=== PATIENT | male | born 1935 | race Caucasian/White ===

== ENCOUNTER 2022-07-02 13:35 | Outpatient (CLI) | payer MEDICARE, BC, SELFPAY ==
--- OUTSIDE RECORDS SUMMARY | 2022-07-02 13:38 | XMS_ITS | Encounter Summary ---
:1935 Author Organization [place] Address [address] [place] [address] Care Team Providers Name Role Phone Vick Espinoza MD Primary Care Provider Cleopatra Velazquez MD Unavailable Neeru Kathleen MD Unavailable [phone] Reason for Visit Reason Comments Medication Refill Encounter Details Date Type Department Care Team Description 12/02/2019 Refill [facility] Eye Louann Velazquez MD Medication Refill Clinic - [address] [place], [place] [address] [place] [address] 516 [facility] 9 [facility] 9[address] [place], [place] [phone] Social History Tobacco Use Types Packs/Day Years Used Date Current Every Day Smoker Smokeless Tobacco: Never Used Sex Assigned at Date Recorded Not on file documented as of this encounter Miscellaneous Notes Telephone Encounter - Zeinab Douglass RN - 12/02/2019 5:04 PM CST Last Clinic Visit: 10/19/19 with recommended 6 month follow up Last clinic note: PLAN: Continue latanoprost both eyes at bedtime DE SALES ACCOUNT EXECUTIVE documented in this encounter Plan of Treatment Upcoming Encounters Date Type Specialty Care Team Description 07/08/2022 Office Visit Ophthalmology Brennen Kathleen MD [address] [place] [address] 911 [place], [place] [phone] (Wo rk) documented as of this encounter Visit Diagnoses Diagnosis Borderline glaucoma with ocular hyperten caroline, bilateral documented in this encounter Care Teams Last Turner Relationship Specialty Start Date End Date Vick Espinoza MD PCP - General Family Practice 09/15/14 [facility] [address] [place] [address] Cleopatra Velazquez MD MD Ophthalmology 10/10/15 420 [facility] 493 [place], [place] [phone] Neeru Kathleen MD MD Ophthalmology 12/14/17 516 [facility] [address] [place], [place] [phone] documented as of this encounter
--- OUTSIDE RECORDS SUMMARY | 2022-07-02 13:38 | XMS_ITS | Encounter Summary ---
:1935 Author Organization [place] Address [address] [facility] [place] [address] Care Team Providers Name Role Phone Vick Espinoza MD Primary Care Provider Cleopatra Velazquez MD Unavailable Madhu Kathleen MD Unavailable [phone] Reason for Visit Reason Comments Annual Eye Exam Encounter Details Date Type Department Care Team Description 06/12/2020 Office Visit [facility] Eye Madhu Kathleen orderline glaucoma with ocular hypertension, bilateral (Primary Dx); Clinic - Ronald Burns MD Type 2 diabetes mellitus without retinop athy (H) [facility] 516 [place] [facility] [address] [place] [address] 9 [address] Clin 9[address] [address] [place], [place] [phone] (Work) [phone] Social History Tobacco Use Types Packs/Day Years Used Date Former Smoker Smokeless Tobacco: Never Used Sex Assigned at Date Recorded Not on file COVID-19 Exposure Response Date Recorded In the last month, have you been in contact with No / Unsure 06/12/2020 12:03 PM CDT someone who was confirmed or suspected to have Coronavirus / COVID-19? documented as of this encounter Progress Notes Madhu Kathleen MD - 06/12/2020 12:30 PM CDT CC - h/o Retinal detachment both eyes s/p repair INTERVAL HISTORY - [facility] stable, missed appt d/t Covid restrictions HPI - Rakesh Warren is a 85yo male with T2DM and history of Retinal detachment both eyes s/p repair. History of T2DM since late 1980s, on metformin, most recent A1c normal per patient. PAST OCULAR SURGERY PPV/SBP left eye 2009 SBP right eye 2009 RETINAL IMAGING OCT 06-12-20 OD - : trace ERM, PVD OS - : mild central atrophy/intraretinal deposits without SRF/IRF, stable OCT RNFL 20 OD - normal OS - borderline ST ASSESSMENT/PLAN: 1. Retinal detachment both eyes s/p repair 2009 -SBP right eye and Pars plana vitrectomy (PPV)/SBP left eye -retina flat both eyes -observe 2. PVD OD -Stable, observe -s/sx Retinal detachment D/w patient 06/2020 3. 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 Primary open angle glaucoma - Follows with Dr. Velazquez and on Latanoprost at bedtime both eyes - Good response with Latanoprost - at target IOP per Dr. Velazquez (low 20's) - OCT RNFL normal today - recheck 6 months return to clinic: 6 months , OCT RNFL, OVF 24-2 ATTESTATION Attending Physician Attestation: Complete documentation of historical and exam elements from today's encounter can be found in the full encounter summary report (not reduplicated in this progress note). I personally obtained the chief complaint(s) and history of present illness. I confirmed and edited as necessary the review of systems, past medical/surgical history, family history, social history, and examination findings as documented by others; and I examined the patient myself. I personally reviewed the relevant tests, images,and reports as documented above. I formulated and edited as necessary the assessment and plan and discussed the findings and management plan with the patient and family Madhu Kathleen MD, PhD Handle Rounder Operator, Vitreoretinal Surgery Department of Ophthalmology [facility] documented in this encounter Nursing Notes Kendra Hunter COA - 06/12/2020 12:30 PM CDT Chief Complaints and History of Present Illnesses Patient presents with ??? Annual Eye Exam Chief Complaint(s) and History of Present Illness(es) Annual Eye Exam Associated symptoms: Negative for flashes and floaters Pain scale: 0/10 Comments Annual exam and follow up for Retinal detachment both eyes s/p repair . The patient notes that his vision is stable. MESSI Silva, COA 12:19 PM 06/12/2020 documented in this encounter Miscellaneous Notes Addendum Note - Madhu Kathleen MD - 06/12/2020 12:30 PM CDT Addended by: MADHU KATHLEEN on: 06/12/2020 01:15 PM Modules accepted: Orders documented in this encounter Plan of Treatment Upcoming Encounters Date Type Specialty Care Team Description 07/08/2022 Office Visit Ophthalmology Brennen Kathleen MD [address] [place] [phone] (Wo rk) documented as of this encounter Procedures Procedure Name Priority Date/Time Associated Diagnosis Comme nts OCT RETINA Routine 06/12/2020 1:13 PM Type 2 diabetes Result s for this SPECTRALIS OU (BOTH CDT mellitus without proc edure are in EYE) retinopathy (H) the results section. OCT OPTIC NERVE RNFL Routine 06/12/2020 1:13 PM Borderline gla ucoma Results for this SPECTRALIS OU (BOTH CDT with ocular procedur e are in EYES) hypertension, the results bilateral section. documented in this encounter Results OCT Retina Spectralis OU (both eyes) (06/12/2020 1:13 PM CDT) Narrative Madhu Kathleen MD - 06/12/2020 1:13 PM CDT Performed by: NO . Patient cooperation: Reliable . Right Eye Reliability of the test: Good . Findings normal/abnormal: Normal OCT . Interpretation: Normal . Plan: Monitor . Interval: Same . Left Eye Reliability of the test: Good . Findings normal/abnormal: Normal OCT . Interpretation: Normal . Plan: Monitor . Interval: Same . Notes I viewed this imaging studay and the doc umentation here and in the chart note reflect my findings and interpretat ion. Madhu Kathleen MD OPHTHALMOLOGY OCT Optic Nerve RNFL Spectralis OU (both eyes) (06/12/2020 1:13 PM CDT) Narrative Madhu Kathleen MD - 06/12/2020 1:13 PM CDT Performed by: NO . Patient cooperation: Reliable . Right Eye Reliability of the test: Good . Test Findings: Normal . Interpretation: Normal . Plan: Monitor . Interval: Same . Left Eye Reliability of the test: Good . Test Findings: Normal . Interpretation: Normal . Plan: Monitor . Interval: Same . Notes I viewed these images. ??The documentati on here and in the note reflects my findings and interpretation. 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 (H) Type II or unspecified type diabetes kiran litus without mention of complication, not stated as uncontrolled documented in this encounter Care Teams Special Procedure Technologist Relationship Specialty Start Date End Date Vick Espinoza MD PCP - General Family Practice 09/15/14 [facility] [address] [place] [address] Cleopatra Velazquez MD MD Ophthalmology 10/10/15 [address] [place] [address] [facility] [address] [place], [place] [address] Madhu Kathleen MD MD Ophthalmology 12/14/17 516 [facility] [address] [facility] 911 [place], [place] [phone] documented as of this encounter
--- OUTSIDE RECORDS SUMMARY | 2022-07-02 13:38 | XMS_ITS | Encounter Summary ---
:1935 Author Organization [place] Address [address] [place] [address] Care Team Providers Name Role Phone Vick Espinoza MD Primary Care Provider Cleopatra Velazquez MD Unavailable Reason for Visit Reason Comments Follow Up Retinal detachment both eye s s/p repair 2010 Encounter Details Date Type Department Care Team Description 02/03/2017 Office Visit [facility] Eye Neeru Kathleen ype 2 diabetes mellitus without retinopathy (H); Clinic - Ronald Burns MD H/O detached retina repair; Jones Wangensteen 516 [facility] seudophakia; Building [place] [address] Glaucoma, open angle, indeterminate stag e [365.10, 365.74] 516 [place], [place] 9 Fl Clin 9A [address] [place], [place] [phone] (Work) [phone] Social History Tobacco Use Types Packs/Day Years Used Date Current Every Day Smoker Sex Assigned at Date Recorded Not on file documented as of this encounter Progress Notes Neeru Kathleen MD - 02/03/2017 10:15 AM CDT CC - h/o Retinal detachment both eyes s/p Repair INTERVAL HISTORY - Vision stable per patient. No concerns. HPI - Rakesh Warren is a 78 year old year-old patient presenting for follow up of retinal detachmentboth eyes 2009. PAST OCULAR SURGERY Pars plana vitrectomy (PPV)/SBP left eye 2010 SBP right eye 2010 RETINAL IMAGING OCT (02/03/2017) OCT right eye: Normal contour without SRF/IRF, trace ERM OCT left eye: Normal contour, mild central atrophy/intraretinal deposits without SRF/IRF, stable ASSESSMENT/PLAN: 1. Retinal detachment both eyes s/p repair 2010 -SBP right eye and Pars plana vitrectomy (PPV)/SBP left eye -retina flat both eyes -observe 2.Pseudophakia of both eyes -Stable, observe 3. Posterior vitreous detachment of right eye -Stable, observe -s/sx Retinal detachment D/w patient 4. Primary open angle glaucoma - Saw Dr. Velazquez and started Latanoprost at bedtime both eyes - Good response with Latanoprost - at target IOP per Dr. Velazquez (low 20's) 5. Diabetes mellitus II no retinopathy -Blood sugar/blood pressure control return to clinic: 1 year or sooner as needed, OCT both eyes Santos Blevins MD MPH Ophthalmology Resident PGY-3 ATTESTATION Attending Physician Attestation: Complete documentation of historical and exam elements from today's encounter can be found in the full encounter summary report (not redupilcated in this progress note). I personally obtained the chiefcomplaint(s) and hisotry of present illness., I have confirmed and edited as necessary the Past medical history/Past Surgical History, Social history, Family medical history, Review of systems, and exam/neuro findings as obtained by the production line technician or others. I have examined this patient myself. , I personally viewed the relevant tests, image(s), reports, and studies listed above and the documentationreflects my findings and interpretation. and I formulated and edited as necessary the assessment andplan and discussed the findings and management plan with the patient and family. Neeru Kathleen MD, PhD Window Shade Cutter, Vitreoretinal Surgery Department of Ophthalmology [facility] documented in this encounter Nursing Notes Nereyda Caraballo - 02/03/2017 10:15 AM CDT Chief Complaints and History of Present Illnesses Patient presents with ??? Follow Up For Retinal detachment both eyes s/p repair 2009 HPI Affected eye(s): Both Symptoms: Duration: 1 year Frequency: Constant Do you have eye pain now?: No Comments: Pt. States that he is doing well, No change in VA BE. No c/o comfort BE. Nereyda Caraballo COT 10:38 AM February 03, 2017 documented in this encounter Plan of Treatment Upcoming Encounters Date Type Specialty Care Team Description 07/08/2022 Office Visit Ophthalmology Brennen Kathleen MD [address] [address] (Wo rk) documented as of this encounter Procedures Procedure Name Priority Date/Time Associated Diagnosis Comme nts OCT RETINA Routine 02/03/2017 11:17 Type 2 diabetes Results for this SPECTRALIS OU (BOTH AM CDT mellitus without proc edure are in EYE) retinopathy (H) the results H/O detached retina section. repair Pseudophakia Glaucoma, open angle, indeterminate stage [365.10, 365.74] documented in this encounter Results OCT Retina Spectralis OU (both eyes) (02/09/2018 12:24 PM CDT) Neeru Hayden MD - 02/09/2018 12:24 PM CDT Performed by: tfw . Patient cooperation: Reliable . Right Eye Reliability of the test: Good . Findings normal/abnormal: Abnormal OCT . Additional findings: ERM . Interpretation: Retinal disease . Plan: Monitor . Interval: Same . Left Eye Reliability of the test: Good . Findings normal/abnormal: Abnormal OCT . Additional findings: Inner retinal atr ophy . Interpretation: Retinal disease . Plan: Monitor . Interval: Same . Notes I viewed this imaging studay and the doc umentation here and in the chart note reflect my findings and interpretat ion. Neeru Kathleen MD OPHTHALMOLOGY OCT Retina Spectralis OU (both eyes) (02/03/2017 11:17 AM CDT) Neeru Hayden MD - 02/03/2017 11:53 AM CDT Performed by: SAB . Patient cooperation: Reliable . Right Eye Reliability of the test: Good . Findings normal/abnormal: Abnormal OCT . Additional findings: ERM . Interpretation: Retinal disease . Plan: Monitor . Interval: Same . Left Eye Reliability of the test: Good . Findings normal/abnormal: Normal OCT . Additional findings: Inner retinal atr ophy . Interpretation: Normal . Plan: Monitor . Interval: Same . Notes I viewed this imaging studay and the doc umentation here and in the chart note reflect my findings and interpretat ion. 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 (H) Type II or unspecified type diabetes kiran litus without mention of complication, not stated as uncontrolled H/O detached retina repair Personal history of surgery to other org ans Pseudophakia Lens replaced by other means documented in this encounter Care Teams Road Patcher Relationship Specialty Start Date End Date Vick Espinoza MD PCP - General Family Practice 09/15/14 [facility] [address] [place] [address] Cleopatra Velazquez MD MD Ophthalmology 10/10/15 [address] [place] [address] [facility] 493 [place] [address] documented as of this encounter
--- OUTSIDE RECORDS SUMMARY | 2022-07-02 13:38 | XMS_ITS | Encounter Summary ---
:1935 Author Organization [place] Address [address] [place] [place] [address] Care Team Providers Name Role Phone Vick Espinoza MD Primary Care Provider Cleopatra Velazquez MD Unavailable Reason for Visit Reason Comments Glaucoma Follow Up Encounter Details Date Type Department Care Team Description 11/17/2016 Office Visit [facility] Eye Cleopatra Velazquez, O cular hypertension, Clinic - [place] bilateral [H40.053] Robert Wangensteen 420 [facility] 493 516 [place], [place] 9th Fl Clin 9A [address] [place], [place] [phone] (Work) [phone] Social History Tobacco Use Types Packs/Day Years Used Date Current Every Day Smoker Sex Assigned at Date Recorded Not on file documented as of this encounter Progress Notes Cleopatra Velazquez MD - 11/17/2016 1:44 PM CST Glaucoma suspect evaluation. Followed by diabetic retinopathy [facility] for retinal detachment left eye s/p Pars plana vitrectomy/SB left eye and SB right eye 2009. 1. Glaucoma suspect Ocular hypertension Normal OCT in past right eye and bordeline left eye 2. Retinal detachment both eyes s/p repair 2010 -SBP right eye and Pars plana vitrectomy (PPV)/SBP left eye -retina flat both eyes -observe 3. Pseudophakia of both eyes -Stable, observe 4. Posterior vitreous detachment of right eye -Stable, observe 5. Diabetes mellitus II no retinopathy -Blood sugar/blood pressure control [place] [facility] and helped with [facility] also Continue latanoprost both eyes at bedtime - goal lower 20's RV 6 months for 24-2 Attending Physician Attestation: Complete documentation of historical and exam elements from today'sencounter can be found in the full encounter summary report (not reduplicated in this progress note). I personally obtained the chief complaint(s) and history of present illness. I confirmed and editedasnecessary the review of systems, past medical/surgical history, family history, social history, and examination findings as documented by others; and I examined the patient myself. I personally reviewed the relevant tests, images, and reports as documented above. I formulated and edited as necessarythe assessment and plan and discussed the findings and management plan with the patient and family. - Cleopatra Velazquez MD 1:45 PM 11/17/2016 ICAL GEOGRAPHER documented in this encounter Nursing Notes Kendra Hunter COA - 11/17/2016 12:52 PM CST Chief Complaints and History of Present Illnesses Patient presents with ??? Glaucoma Follow Up HPI Symptoms: No decreased vision No floaters No flashes No Dryness Do you have eye pain now?: No Comments: Six month follow up for glaucoma. The patient states his vision is stable since his last visit. He has a current UTI and he is being treated. MESSI Silva 12:52 PM 11/17/2016 ICAL GEOGRAPHER documented in this encounter Plan of Treatment Upcoming Encounters Date Type Specialty Care Team Description 07/08/2022 Office Visit Ophthalmology Brennen Kathleen MD [address] [place] [address] (Wo rk) documented as of this encounter Procedures Procedure Name Priority Date/Time Associated Comments Diagnosis OCT OPTIC NERVE RNFL Routine 11/17/2016 1:43 PM Ocular R esults for this SPECTRALIS OU (BOTH PHYSICAL GEOGRAPHER hypertension, procedu re are in EYES) bilateral [H40.053] the resu lts section. documented in this encounter Results OCT Optic Nerve RNFL Spectralis OU (both eyes) (11/17/2016 1:43 PM PHYSICAL GEOGRAPHER) Narrative Cleopatra Velazquez MD - 11/17/2016 1:44 P M PHYSICAL GEOGRAPHER Right Eye Test Findings: Normal . Interval: Same . Left Eye Test Findings Free Text: Borderline ST . Interval: Worse . 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
--- OUTSIDE RECORDS SUMMARY | 2022-07-02 13:38 | XMS_ITS | Encounter Summary ---
:1935 Author Organization [place] Address [address] [place] [address] Care Team Providers Name Role Phone Vick Espinoza MD Primary Care Provider Cleopatra Velazquez MD Unavailable Neeru Kathleen MD Unavailable [phone] Reason for Visit Reason Comments Glaucoma Suspect Follow Up Encounter Details Date Type Department Care Team Description 10/13/2018 Office Visit [facility] Eye Cleopatra Velazquez B orderline glaucoma Clinic - [place] with ocular Jones Wangensteen 420 [facility] hype rtension, Building [facility] 493 bilateral (Primary 516 [facility] [place], [place] Dx) Fl Clin 9A [address] [place], [place] [phone] (Work) [phone] Social History Tobacco Use Types Packs/Day Years Used Date Current Every Day Smoker Smokeless Tobacco: Never Used Sex Assigned at Date Recorded Not on file documented as of this encounter Progress Notes Cleopatra Velazquez MD - 10/13/2018 12:45 PM CST CC:Glaucoma suspect. HPI: recently had spine surgery, has been taking care of her. And brother on 09/26/18. Otherwise no changes in vision or concerns today. PAST OCULAR HISTORY: Followed by diabetic retinopathy [facility] for retinal detachment left eye s/p Pars plana vitrectomy/SB left eye and SB right eye 2009. Pseudophakia Diabetes mellitus II without retinopathy PVD right eye MAXIMUM INTRAOCULAR PRESSURE: 26/33 MEDICATIONS: Latanoprost at bedtime ou PMH: FAMILY/SOCIAL HISTORY: TESTING TODAY: 10/13/18: Visual field Right eye: high false positives Left eye: reliable, central defects 04/07/18: Normal OCT right eye and ST borderline/rest normal left eye - stable EXAM: Anomalous left nerve IMPRESSION: Glaucoma suspect, ocular hypertension VISUAL FIELD right eye unreliable, left eye with some central decreased sensitivity PLAN: Continue latanoprost both eyes at bedtime Return to clinic in 6 months with OCT retinal nerve fiber layer [employer] [facility] and helped with [facility] also Bridgette Cavazos MD PGY-3 Ophthalmology Attending Physician Attestation: Complete documentation of historical [...] patient and family. - Cleopatra Velazquez MD 2:25 PM 10/13/2018 AGENT documented in this encounter Plan of Treatment Upcoming Encounters Date Type Specialty Care Team Description 07/08/2022 Office Visit Ophthalmology Brennen Kathleen MD [address] [place] [address] (Wo rk) documented as of this encounter Procedures Procedure Name Priority Date/Time Associated Diagnosis Comme nts OVF 24-2 DYNAMIC OU Routine 10/13/2018 2:27 PM Borderline glau coma Results for this BAIL AGENT with ocular procedure are i n hypertension, the results bilateral section. documented in this encounter Results OVF 24-2 Dynamic OU (10/13/2018 2:27 PM BAIL AGENT) Narrative Cleopatra Velazquez MD - 10/13/2018 2:27 P M BAIL AGENT Performed by: mm . Right Eye Reliability of the test: Poor . Findings: Nonspecific defect . Interval: Same . Left Eye Reliability of the test: Good . Findings: Central scotoma, Nonspecific defect . Interval: Same . Cleopatra Velazquez MD OPHTHALMOLOGY documented in this encounter Visit Diagnoses Diagnosis Borderline glaucoma with ocular hyperten caroline, bilateral - Primary documented in this encounter Care Teams Network Designer Relationship Specialty Start Date End Date Vick Espinoza MD PCP - General [facility] Practice 09/15/14 [facility] [address] [place] [address] Cleopatra Velazquez MD MD Ophthalmology 10/10/15 [address] [place] [address] [facility] [address] [place] [address] Neeru Kathleen MD MD Ophthalmology 12/14/17 516 [facility] [address] [place] [address] documented as of this encounter
--- OUTSIDE RECORDS SUMMARY | 2022-07-02 13:38 | XMS_ITS | Encounter Summary ---
:1935 Author Organization [place] Address [address] [place] [address] Care Team Providers Name Role Phone Vick Espinoza MD Primary Care Provider Cleopatra Velazquez MD Unavailable Reason for Visit Reason Comments Glaucoma Suspect Follow Up 6 month follow up both eyes . 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 Followed by diabetic retinopathy Hever for retinal [...] eye -Stable, observe 5. 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 - Cleopatra Velazquez MD 1:13 PM 06/08/2017 documented in this encounter Nursing Notes Shantel Boothe COMT - 06/08/2017 1:00 PM CDT Chief Complaints and History of Present Illnesses Patient presents with ??? Glaucoma Suspect Follow Up 6 month follow up both eyes. HPI Affected eye(s): Both Symptoms: No floaters No flashes No redness No Dryness Do you have eye pain now?: No Comments: Pt states vision is the same as last visit. Pt saw a floater in a few weeks ago, but not seeing it today. DM2 BS: 134 yesterday A1C: Good per pt, taken about 3 months ago. No results found for: A1C Shantel SILVERMAN June 08, 2017 12:33 PM documented in this encounter Plan of Treatment Upcoming Encounters Date Type Specialty Care Team Description 07/08/2022 Office Visit Ophthalmology Brennen Kathleen MD [address] [place] [address] (Wo rk) documented as of this encounter Procedures Procedure Name Priority Date/Time Associated Diagnosis Comme nts OVF 24-2 DYNAMIC OU Routine 06/08/2017 1:12 PM Borderline glau coma Results for this CDT with ocular procedure are i n hypertension the results section. documented in this encounter Results OVF 24-2 Dynamic OU (06/08/2017 1:12 PM CDT) Narrative Cleopatra Velazquez MD - 06/08/2017 1:12 P M CDT Performed by: mm . Right Eye Reliability of the test: Fair . Findings: Nonspecific defect . Interval: Same . Left Eye Reliability of the test: Poor . Findings: Nasal step, Nonspecific defe ct . Interval: Same . Cleopatra Velazquez MD OPHTHALMOLOGY documented in this encounter Visit Diagnoses Diagnosis Borderline glaucoma with ocular hyperten caroline, bilateral documented in this encounter Care Teams Remote Control Assembler Relationship Specialty Start Date End Date Vick Espinoza MD PCP - General Family Practice 09/15/14 [facility] [address] [place] [address] Cleopatra Velazquez MD MD Ophthalmology 10/10/15 [address] [place] [address] [facility] 493 [place] [address] documented as of this encounter
--- OUTSIDE RECORDS SUMMARY | 2022-07-02 13:38 | XMS_ITS | Encounter Summary ---
:1935 Author Organization [place] Address [address] [place] [address] Care Team Providers Name Role Phone Vick Espinoza MD Primary Care Provider Cleopatra Velazquez MD Unavailable Neeru Kathleen MD Unavailable [phone] Encounter Details Date Type Department Care Team Description 04/03/2020 Travel Social History Tobacco Use Types Packs/Day Years Used Date Current Every Day Smoker Smokeless Tobacco: Never Used Sex Assigned at Date Recorded Not on file COVID-19 Exposure Response Date Recorded In the last month, have you been in contact Unable to assess 04/03/2020 2:25 PM CDT with someone who was confirmed or suspected to have Coronavirus / COVID-19? documented as of this encounter Plan of Treatment Upcoming Encounters Date Type Specialty Care Team Description 07/08/2022 Office Visit Ophthalmology Brennen Kathleen MD 516 [facility] 911 [place] [address] (Wo rk) documented as of this encounter Visit Diagnoses Not on filedocumented in this encounter Care Teams Bale Piler Relationship Specialty Start Date End Date Vick Espinoza MD PCP - General Family Practice 09/15/14 [facility] [address] [place] [address] Cleopatra Velazquez MD MD Ophthalmology 10/10/15 420 [facility] 493 [place] [address] Neeru Kathleen MD MD Ophthalmology 12/14/[address] [place] [address] documented as of this encounter
--- OUTSIDE RECORDS SUMMARY | 2022-07-02 13:38 | XMS_ITS | Encounter Summary ---
:1935 Author Organization [facility] Address [address] [place] [address] Care Team Providers Name Role Phone Vick Espinoza MD Primary Care Provider Cleopatra Velazquez MD Unavailable Neeru Kathleen MD Unavailable [phone] Neeru Kathleen MD Unavailable [phone] Reason for Visit Reason Comments Medication Refill LATANOPROST 0.005% EYE DROPS Encounter Details Date Type Department Care Team Description 07/16/2021 Refill [facility] Eye Neeru Kathleen edication Refill Clinic - Ronald Burns MD (LATANOPROST 0.005% EYE [place] [address] 9 Mt Clin 9A [address] [place], [place] [phone] (Wo rk) [address] [phone] Social History Tobacco Use Types Packs/Day Years Used Date Former Smoker Smokeless Tobacco: Never Used Sex Assigned at Date Recorded Not on file COVID-19 Exposure Response Date Recorded In the last month, have you been in contact with No / Unsure 07/02/2021 11:54 AM CDT someone who was confirmed or suspected to have Coronavirus / COVID-19? documented as of this encounter Miscellaneous Notes Telephone Encounter - Kely Leon RN - 07/16/2021 3:10 PM CDT LATANOPROST 0.005% EYE DROPS Last Written Prescription Date: 06/12/2020 Last Fill Quantity: 7.5, # refills: 11 Last Office Visit : 07/02/2021 Future Office visit: 12/31/2021 Neeru Kathleen MD Ophthalmology ASSESSMENT/PLAN: 07/02/2021 # Retinal detachment OU s/p repair 2010 -SBP right eye and Pars plana vitrectomy (PPV)/SBP left eye -retina flat both eyes -observe ? #. PVD OD -Stable, observe -s/sx Retinal detachment D/w patient 06/2021 ? #. Diabetes mellitus II no retinopathy -Blood sugar/blood pressure control -Annual dilated eye exams ? #. Primary open angle glaucoma - Follows with Dr. Velazquez and on Latanoprost at bedtime both eyes - On Latanoprost - target low 20's per Marcus ntoe - IOP OS mild elevation 12/2020 & 06/2021 - OCT RNFL normal (92206) - OVF stable vs better (12/2020) ?? - recheck 6 months ? return to clinic: 6 months, OCT RNFL OU, OVF 24-2 OU, no dilation 7.5 mL, 11 Refills sent to pharm 07/16/2021 Kely Leon RN Central Triage Red Flags/Med Refills documented in this encounter Plan of Treatment Upcoming Encounters Date Type Specialty Care Team Description 07/08/2022 Office Visit Ophthalmology Brennen Kathleen MD 6 [facility] 911 [place] [address] (Wo rk) documented as of this encounter Visit Diagnoses Diagnosis Borderline glaucoma with ocular hyperten caroline, bilateral documented in this encounter Care Teams Gritting Machine Operator Relationship Specialty Start Date End Date Vick Espinoza MD PCP - General Family Practice 09/15/14 [facility] [address] [place] [address] Cleopatra Velazquez MD MD Ophthalmology 10/10/15 420 [facility] 493 [place], [place] [phone] Neeru Kathleen MD Ophthalmology 12/14/17 MD [facility] [address] [place] [address] [phone] Neeru Kathleen Assigned Surgical Provider 10/21/20 MD [facility] [address] [place] [address] [phone] documented as of this encounter
--- OUTSIDE RECORDS SUMMARY | 2022-07-02 13:38 | XMS_ITS | Encounter Summary ---
:1935 Author Organization [place] Address [address] [place] [address] Care Team Providers Name Role Phone Vick Espinoza MD Primary Care Provider Cleopatra Velazquez MD Unavailable Neeru Kathleen MD Unavailable [phone] Neeru Kathleen MD Unavailable [phone] Reason for Visit Reason Comments Follow Up Borderline glaucoma with ocu lar hypertension, bilateral Encounter Details Date Type Department Care Team Description 07/02/2021 Office Visit [facility] Eye Neeru Kathleen orderline glaucoma with ocular hypertension, bilateral (Primary Dx); Clinic - Ronald Burns MD Type 2 diabetes mellitus without retinop athy (H); Robert Garciateen 516 [facility] V itreous syneresis of both eyes ; [facility] 911 Vitreous syneresis of both eyes 516 [place], [place] Clin 9A [address] [place], [place] [phone] (Work) [phone] Social History Tobacco Use Types Packs/Day Years [...] encounter Progress Notes Neeru Kathleen MD - 07/02/2021 12:10 PM CDT CC - h/o Retinal detachment both eyes s/p repair, POAG INTERVAL HISTORY - [place] stable PMH- Rakesh Warren is a 86yo male with T2DM and history of Retinal detachment both eyes s/p repair. History of T2DM since late , on metformin, most recent A1c normal per patient. PAST OCULAR SURGERY PPV/SBP left eye 2009 SBP right eye 2009 RETINAL IMAGING OCT 07-02-21 OD - : trace ERM, PVD OS - : mild central atrophy/intraretinal deposits no fluid, stable HVF 24-2 12-25-20 OD- ?superior arcuate- improved since last year OS- Non specific defects, 14% FP and 12% FN OCT RNFL 12-25-20 OD - normal- stable OS - borderline ST- stable ASSESSMENT/PLAN: # Retinal detachment OU s/p repair 2009 -SBP right eye and Pars plana vitrectomy (PPV)/SBP left eye -retina flat both eyes -observe #. PVD OD -Stable, observe -s/sx Retinal detachment D/w patient 06/2021 #. Diabetes mellitus II no retinopathy -Blood sugar/blood pressure control -Annual dilated eye exams #. Primary open angle glaucoma - Follows with Dr. Velazquez and on Latanoprost at bedtime both eyes - On Latanoprost - target low 20's per Marcus ntoe - IOP OS mild elevation 12/2020 & 06/2021 - OCT RNFL normal (76804) - OVF stable vs better (12/2020) - recheck 6 months return to clinic: 6 months, OCT RNFL OU, OVF 24-2 OU, no dilation ATTESTATION Attending Physician Attestation: Complete documentation of [...] management plan with the patient and family Neeru Kathleen MD, PhD Buffer Inflated Pad, Vitreoretinal Surgery Department of Ophthalmology [facility] documented in this encounter Nursing Notes Gr Yesenia - 07/02/2021 12:10 PM CDT Chief Complaints and History of Present Illnesses Patient presents with ??? Follow Up Borderline glaucoma with ocular hypertension, bilateral Chief Complaint(s) and History of Present Illness(es) Follow Up Laterality: both eyes Course: stable Associated symptoms: headache. Negative for floaters, flashes and eye pain Treatments tried: eye drops Pain scale: 0/10 Comments: Borderline glaucoma with ocular hypertension, bilateral Comments Pt states no change in [place] since last visit Using: Latanoprost at bedtime both eyes Yesenia Gr COT 12:07 PM July 02, 2021 documented in this encounter Plan of Treatment Upcoming Encounters Date Type Specialty Care Team Description 07/08/2022 Office Visit Ophthalmology Brennen Kathleen MD [address] [place] [phone] (Wo rk) documented as of this encounter Procedures Procedure Name Priority Date/Time Associated Diagnosis Comme nts OCT RETINA Routine 07/02/2021 12:46 Type 2 diabetes Results for this SPECTRALIS OU (BOTH PM CDT mellitus without proc edure are in EYE) retinopathy (H) the results Vitreous syneresis section. of both eyes documented in this encounter Results OCT Retina Spectralis OU (both eyes) (07/02/2021 12:46 PM CDT) Narrative Neeru Kathleen MD - 07/02/2021 12:46 PM CDT Performed by: rp . Patient cooperation: Reliable . Right Eye Reliability of the test: Good . Findings normal/abnormal: Abnormal OCT . Interpretation: Retinal disease . Plan: Monitor . Interval: Same . Left Eye Reliability of the test: Good . Findings normal/abnormal: Abnormal OCT . Interpretation: Retinal disease . Plan: Monitor [...] mention of complication, not stated as uncontrolled Vitreous syneresis of both eyes documented in this encounter Care Teams Pharmacy Clinical Specialist Relationship Specialty Start Date End Date Vick Espinoza MD PCP - General [facility] Practice 09/15/14 [facility] [address] [place] [address] Cleopatra Velazquez MD MD Ophthalmology 10/10/[address] [place] [address] 493 [place] [address] Neeru Kathleen MD Ophthalmology 12/14/17 MD Grant [address] [place] [address] [phone] Neeru Kathleen Assigned Surgical Provider 10/21/20 MD Grant [address] [place] [phone] documented as of this encounter
--- OUTSIDE RECORDS SUMMARY | 2022-07-02 13:38 | XMS_ITS | Encounter Summary ---
:1935 Author Organization [facility] Address [address] [place] [address] Care Team Providers Name Role Phone Vick Espinoza MD Primary Care Provider Cleopatra Velazquez MD Unavailable Neeru Kathleen MD Unavailable [phone] Neeru Kathleen MD Unavailable [phone] Encounter Details Date Type Department Care Team Description 12/31/2021 Orders Only [facility] Eye Neeru Kathleen orderline glaucoma Clinic - Ronald Burns MD with ocular Jones Wangensteen 516 [facility] ypertension, Building SARAH 911 bilateral (Primary 6 [place], [place] Dx) 9 Fl Clin 9A [address] [place], [place] [phone] (Wo rk) [address] [phone] Social History Tobacco Use Types Packs/Day Years Used Date Former Smoker Smokeless Tobacco: Never Used Sex Assigned at Date Recorded Not on file documented as of this encounter Plan of Treatment Upcoming Encounters Date Type Specialty Care Team Description 07/08/2022 Office Visit Ophthalmology Brennen Kathleen MD [address] [place] [address] 911 [place], [place] [address] (Wo rk) documented as of this encounter Results OCT Optic Nerve RNFL Spectralis OU (both eyes) (12/31/2021 12:42 PM CDT) Narrative Neeru Kathleen MD - 12/31/2021 12:42 PM CDT Performed by: olivier . Patient cooperation: Reliable . Right Eye Reliability of the test: Good . Test Findings: Abnormal . Interpretation: Normal . Plan: Monitor . Interval: Same . Left Eye Reliability of the test: Good . Test Findings: Abnormal . Interpretation: Nonspecific loss . Plan: Monitor . Interval: Same . Notes I viewed these images. ??The documentati on here and in the note reflects my findings and interpretation. Neeru Kathleen MD OPHTHALMOLOGY OVF 24-2 Dynamic OU (12/31/2021 12:42 PM CDT) Narrative Neeru Kathleen MD - 12/31/2021 12:42 PM CDT Performed by: wendy . Patient cooperation: Reliable . Good fix. Not dilated. Right Eye Reliability of the test: Fair . Findings: Nonspecific defect . Interpretation: Abnormal . Plan: Monitor . Interval: Initial . Left Eye Reliability of the test: Fair . Findings: Nonspecific defect . Interpretation: Abnormal . Plan: Monitor . Interval: Initial . 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 [address] [place] [address] Cleopatra Velazquez MD MD Ophthalmology 10/10/15 420 [facility] 493 [place], [place] [address] Neeru Kathleen MD Ophthalmology 12/14/17 MD Grant [address] [place] [phone] Neeru Kathleen Assigned Surgical Provider 10/21/20 MD Grant [address] [place] [phone] documented as of this encounter
--- OUTSIDE RECORDS SUMMARY | 2022-07-02 13:38 | XMS_ITS | Encounter Summary ---
:1935 Author Organization [place] Address [address] [place] [address] Care Team Providers Name Role Phone Vick Espinoza MD Primary Care Provider Cleopatra Velazquez MD Unavailable Reason for Visit Reason Onset Date Comments Refill Request 07/29/2016 Latanoprost 0.005% o phth Solution Encounter Details Date Type Department Care Team Description 07/29/2016 Refill Eye Clinic Cleopatra Velazquez MD Refill Request [facility] 420 [facility] (Latanoprost 0.005% Building 493 ophth Solution) 9th Floor, Clinic [address] [place] [address] [facility] 493 [place] [address] Social History Tobacco Use Types Packs/Day Years Used Date Current Every Day Smoker Sex Assigned at Date Recorded Not on file documented as of this encounter Plan of Treatment Upcoming Encounters Date Type Specialty Care Team Description 07/08/2022 Office Visit Ophthalmology Brennen Kathleen MD [address] [place] [address] [place] [address] [place] [address] (Wo rk) documented as of this encounter Visit Diagnoses Diagnosis Borderline glaucoma with ocular hyperten caroline, bilateral - Primary documented in this encounter Care Teams Distribution Agent Relationship Specialty Start Date End Date Vick Espinoza MD PCP - General Family Practice 09/15/14 [facility] [address] [place] [address] Cleopatra Velazquez MD MD Ophthalmology 10/10/[address] [phone] documented as of this encounter
--- OUTSIDE RECORDS SUMMARY | 2022-07-02 13:38 | XMS_ITS | Encounter Summary ---
:1935 Author Organization [place] Address [address] [place] [address] Care Team Providers Name Role Phone Vick Espinoza MD Primary Care Provider Cleopatra Velazquez MD Unavailable Neeru Kathleen MD Unavailable [phone] Neeru Kathleen MD Unavailable [phone] Reason for Visit Reason Comments Follow Up Encounter Details Date Type Department Care Team Description 12/25/2020 Office Visit [facility] Eye Neeru Kathleen orderline glaucoma Clinic - Ronald Burns MD with ocular Jones Wangensteen 516 [facility] ypertension, Building SAR[facility] 911 bilateral 516 [place], [place] 9 Fl Clin 9A [address] [place], [place] [phone] [address] (Work) [phone] Social History Tobacco Use Types Packs/Day Years Used Date Former Smoker Smokeless Tobacco: Never Used Sex Assigned at Date Recorded Not on file COVID-19 Exposure Response Date Recorded In the last month, have you been in contact with No / Unsure 12/25/2020 11:46 AM CDT someone who was confirmed or suspected to have Coronavirus / COVID-19? documented as of this encounter Progress Notes Neeru Kathleen MD - 12/25/2020 12:20 PM CDT CC - h/o Retinal detachment both eyes s/p repair, POAG INTERVAL HISTORY - [place] stable PMH- Rakesh Warren is a 85yo male with T2DM and history of Retinal detachment both eyes s/p repair. History of T2DM since late 1980s, on metformin, most recent A1c normal per patient. PAST OCULAR SURGERY PPV/SBP left eye 2009 SBP right eye 2009 RETINAL IMAGING OCT 06-12-20 OD - : trace ERM, PVD OS - : mild central atrophy/intraretinal deposits without SRF/IRF, stable HVF 24-2 12-25-20 OD- ?superior arcuate- improved since last year OS- Non specific defects, 14% FP and 12% FN OCT RNFL 12-25-20 OD - normal- stable OS - borderline ST- stable ASSESSMENT/PLAN: 1. Retinal detachment both eyes [...] ntoe - IOP OS mild elevation 12/2020 (24) - OCT RNFL normal - OVF stable vs better - recheck 6 months return to clinic: 6 months, Mac OCT, DFE Keshia Thakur MD Ophthalmology Resident, PGY-3 ATTESTATION Attending Physician Attestation: Complete documentation [...] tests, images,and reports as documented above. I personally reviewed the ophthalmic test(s) associated with this encounter, agree with the interpretation(s) as documented by the resident/fellow, and have edited the corresponding report(s) as necessary. I formulated and edited as necessary the assessment and plan and discussed the findings and management plan with the patient and family Neeru Kathleen MD, PhD Physician Neonatology, Vitreoretinal Surgery Department of Ophthalmology [facility] documented in this encounter Nursing Notes Chucky Roy COT - 12/25/2020 12:20 PM CDT Chief Complaints and History of Present Illnesses Patient presents with ??? Follow Up Chief Complaint(s) and History of Present Illness(es) Follow Up Laterality: both eyes Onset: gradual Onset: years ago Course: stable Associated symptoms: floaters and a need for brighter lights. Negative for eye pain, dryness, tearing, flashes, photophobia, glare and haloes Treatments tried: artificial tears Comments Pt states vision is stable since last visit. No change floaters. He would like a new glasses Rx today. Pt is compliant with drops. Latanoprost BE at bed time. DM2 No results found for: A1C Per Pt last was about 3.7 BS run about 124 to 140 CLARICE Parker December 25, 2020 12:11 PM documented in this encounter Plan of Treatment Upcoming Encounters Date Type Specialty Care Team Description 07/08/2022 Office Visit Ophthalmology Brennen Kathleen MD [address] [place] [phone] (Wo rk) documented as of this encounter Procedures Procedure Name Priority Date/Time Associated Comments Diagnosis OVF 24-2 DYNAMIC OU Routine 12/25/2020 1:55 PM Borderline glau coma Results for this CDT with ocular procedure are i n hypertension, the results bilateral section. OCT OPTIC NERVE RNFL Routine 12/25/2020 1:53 PM Borderline gla ucoma Results for this SPECTRALIS OU (BOTH CDT with ocular procedur e are in EYES) hypertension, the results bilateral section. documented in this encounter Results OVF 24-2 Dynamic OU (12/25/2020 1:55 PM CDT) Narrative Neeru Kathleen MD - 12/25/2020 1:55 PM CDT Performed by: wendy . Patient cooperation: Reliable . Good monitored fix. Not dilated. Right Eye Reliability of the test: Good . Findings: Nonspecific defect . Interpretation: Abnormal . Plan: Monitor . Interval: Same . Left Eye Reliability of the test: Fair . Findings: Nonspecific defect . Interpretation: Abnormal . Plan: Monitor . Interval: Same . Neeru Kathleen MD OPHTHALMOLOGY OCT Optic Nerve RNFL Spectralis OU (both eyes) (12/25/2020 1:53 PM CDT) Narrative Neeru Kathleen MD - 12/25/2020 1:53 PM CDT Performed by: NO . Patient [...] the note reflects my findings and interpretation. Keshia Thakur MD OPHTHALMOLOGY documented in this encounter Visit Diagnoses Diagnosis Borderline glaucoma with ocular hyperten caroline, bilateral documented in this encounter Care Teams Work Measurement Engineer Relationship Specialty Start Date End Date Vick Espinoza MD PCP - General Family Practice 09/15/14 [facility] [address] [place] [address] Cleopatra Velazquez MD MD Ophthalmology 10/10/[address] [place] [address] 493 [place], [place] [address] Neeru Kathleen MD Ophthalmology 12/14/17 MD Grant [address] [place] [address] [place] [phone] Neeru Kathleen Assigned Surgical Provider 10/21/20 MD Grant [address] [place] [address] [place] [phone] documented as of this encounter
--- OUTSIDE RECORDS SUMMARY | 2022-07-02 13:38 | XMS_ITS | Encounter Summary ---
:1935 Author Organization [place] Address [address] [place] [address] Care Team Providers Name Role Phone Vick Espinoza MD Primary Care Provider Cleopatra Velazquez MD Unavailable Neeru Kathleen MD Unavailable [phone] Encounter Details Date Type Department Care Team Description 04/07/2018 Orders Only [facility] Eye Cleopatra Velazquez B orderline glaucoma Clinic - Ronald PLASCENCIA with ocular Jones Wangensteen 420 [facility] MMC hypertension, Building 493 bilateral (Primary 516 [facility] SE [place], [place] Dx) Fl Clin 9A [address] [place], [place] [phone] (Wo rk) [address] [phone] Social History Tobacco Use Types Packs/Day Years Used Date Current Every Day Smoker Smokeless Tobacco: Never Used Sex Assigned at Date Recorded Not on file documented as of this encounter Plan of Treatment Upcoming Encounters Date Type Specialty Care Team Description 07/08/2022 Office Visit Ophthalmology Brennen Kathleen MD 516 [facility] [place] 911 [place] [address] (Wo rk) Pending Results Name Type Priority Associated Diagnoses Date/Ti ga OCT Optic Nerve RNFL Opht Imaging Routine Borderline glaucoma 04/07/2018 2:09 PM Spectralis OU (both with ocular CDT eyes) hypertension, bilateral documented as of this encounter Visit Diagnoses Diagnosis Borderline glaucoma with ocular hyperten caroline, bilateral - Primary documented in this encounter Care Teams Commercial Front Load Driver Relationship Specialty Start Date End Date Vick Espinoza MD PCP - General Family Practice 09/15/14 [facility] [address] [place] [address] Cleopatra Velazquez MD MD Ophthalmology 10/10/15 420 [facility] 493 [place] [address] Nereu Kathleen MD MD Ophthalmology 12/14/17 516 [facility] SE SAR[place] 911 [place] [address] documented as of this encounter
--- OUTSIDE RECORDS SUMMARY | 2022-07-02 13:38 | XMS_ITS | Encounter Summary ---
:1935 Author Organization [place] Address [address] [place] [address] Care Team Providers Name Role Phone Vick Espinoza MD Primary Care Provider Cleopatra Velazquez MD Unavailable Neeru Kathleen MD Unavailable [phone] Reason for Visit Reason Comments Glaucoma Follow-Up Encounter Details Date Type Department Care Team Description 10/19/2019 Office Visit [facility] Eye Cleopatra Velazquez B orderline glaucoma Clinic - [place] with ocular Jones Wangensteen 420 [facility] hype rtension, Building MMC 493 bilateral (Primary 516 [facility] SE [place], [place] Dx) Fl Clin 9A [address] [place], [place] [phone] (Work) [phone] Social History Tobacco Use Types Packs/Day Years Used Date Current Every Day Smoker Smokeless Tobacco: Never Used Sex Assigned at Date Recorded Not on file documented as of this encounter Progress Notes Cleopatra Velazquez MD - 10/19/2019 1:45 PM CST CC:Glaucoma suspect. 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 - Cleopatra Velazquez MD 3:26 PM 10/19/2019 SECURITY CONSULTANT documented in this encounter Nursing Notes Vanna Giles COMT - 10/19/2019 1:45 PM CST Chief Complaint(s) and History of Present Illness(es) Glaucoma Follow-Up In both eyes. Associated symptoms include Negative for dryness, eye pain, redness and tearing. Painwas noted as 0/10. Comments 6 month f/u for Ocular hypertension, BE. Pt notes vision has been fine. No changes in vision. Pt denies any other changes with the eyes. Ocular meds: Latanoprost at bedtime BE HERRERA Graves 1:59 PM October 19, 2019 SECURITY CONSULTANT documented in this encounter Plan of Treatment Upcoming Encounters Date Type Specialty Care Team Description 07/08/2022 Office Visit Ophthalmology Brennen Kathleen MD 6 [facility] 911 [place], [place] [address] (Wo rk) documented as of this encounter Procedures Procedure Name Priority Date/Time Associated Diagnosis Comme nts OVF 24-2 DYNAMIC OU Routine 10/19/2019 3:28 PM Borderline glau coma Results for this SAP SECURITY CONSULTANT with ocular procedure are i n hypertension, the results bilateral section. documented in this encounter Results OVF 24-2 Dynamic OU (10/19/2019 3:28 PM SAP SECURITY CONSULTANT) Narrative Cleopatra Velazquez MD - 10/19/2019 3:28 P M SAP SECURITY CONSULTANT Performed by: smn . Patient cooperation: Unreliable . Pt could not keep fixation, stated that they were too fast, I slowed intervals Did not help, during first eye he started shaking(parkinsons ?) I think the More I engaged him to look a t fixation the worse he shook. . Right Eye Findings: Nonspecific defect . Interval: Same . Left Eye Findings: Paracentral defects . Interval: Same . Cleopatra Velazquez MD OPHTHALMOLOGY documented in this encounter Visit Diagnoses Diagnosis Borderline glaucoma with ocular hyperten caroline, bilateral - Primary documented in this encounter Care Teams Team Facilitator Relationship Specialty Start Date End Date Vick Espinoza MD PCP - General Family Practice 09/15/14 [facility] [address] [place] [address] Cleopatra Velazquez MD MD Ophthalmology 10/10/15 420 [facility] 493 [place], [place] [address] Neeru Kathleen MD MD Ophthalmology 12/14/[address] [place] [address] 911 [place], [place] [phone] documented as of this encounter
--- OUTSIDE RECORDS SUMMARY | 2022-07-02 13:38 | XMS_ITS | Encounter Summary ---
:1935 Author Organization [place] Address [address] [facility] [place] [address] Care Team Providers Name Role Phone Vick Espinoza MD Primary Care Provider Cleopatra Velazquez MD Unavailable Neeru Kathleen MD Unavailable [phone] Encounter Details Date Type Department Care Team Description 10/19/2019 Travel Social History Tobacco Use Types Packs/Day Years Used Date Current Every Day Smoker Smokeless Tobacco: Never Used Sex Assigned at Date Recorded Not on file documented as of this encounter Plan of Treatment Upcoming Encounters Date Type Specialty Care Team Description 07/08/2022 Office Visit Ophthalmology Brennen Kathleen MD [address] [place] [phone] (Wo rk) documented as of this encounter Visit Diagnoses Not on filedocumented in this encounter Care Teams Fruit Trimmer Relationship Specialty Start Date End Date Vick Espinoza MD PCP - General Family Practice 09/15/14 [facility] [address] [place] [address] Cleopatra Velazquez MD MD Ophthalmology 10/10/15 420 [facility] 493 [place], [place] [phone] Neeru Kathleen MD MD Ophthalmology 12/14/[address] [place] [phone] documented as of this encounter
--- OUTSIDE RECORDS SUMMARY | 2022-07-02 13:38 | XMS_ITS | Encounter Summary ---
:1935 Author Organization [place] Address [address] [place] [address] Care Team Providers Name Role Phone Vick Espinoza MD Primary Care Provider Cleopatra Velazquez MD Unavailable Neeru Kathleen MD Unavailable [phone] Encounter Details Date Type Department Care Team Description 06/12/2020 Travel Social History Tobacco Use Types Packs/Day [...] Office Visit Ophthalmology Brennen Kathleen MD 6 [facility] 911 [place] [address] (Wo rk) documented as of this encounter Visit Diagnoses Not on filedocumented in this encounter Care Teams Store Protection Specialist Relationship Specialty Start Date End Date Vick Espinoza MD PCP - General Family Practice 09/15/14 [facility] [address] [place] [address] Cleopatra Velazquez MD MD Ophthalmology 10/10/15 420 [facility] 493 [place] [address] Neeru Kathleen MD MD Ophthalmology 12/14/[address] [place] [address] documented as of this encounter
--- OUTSIDE RECORDS SUMMARY | 2022-07-02 13:38 | XMS_ITS | Encounter Summary ---
:1935 Author Organization [place] Address [address] [place] [address] Care Team Providers Name Role Phone Vick Espinoza MD Primary Care Provider Clepoatra Velazquez MD Unavailable Neeru Kathleen MD Unavailable [phone] Neeru Kathleen MD Unavailable [phone] Reason for Visit Reason Comments Follow Up Encounter Details Date Type Department Care Team Description 12/31/2021 Office Visit [facility] Eye Neeru Kathleen orderline glaucoma Clinic - Ronald Burns MD with ocular Jones Wangensteen 516 [facility] h ypertension, Building SARAH 911 bilateral 516 [place], [place] 9 Fl Clin 9A [address] [place], [place] [phone] [address] (Work) [phone] Social History Tobacco Use Types Packs/Day Years Used Date Former Smoker Smokeless Tobacco: Never Used Sex Assigned at Date Recorded Not on file COVID-19 Exposure Response Date Recorded In the last month, have you been in contact with No / Unsure 12/31/2021 11:23 AM CDT someone who was confirmed or suspected to have Coronavirus / COVID-19? documented as of this encounter Progress Notes Neeru Kathleen MD - 12/31/2021 12:10 PM CDT CC - h/o Retinal detachment both eyes s/p repair, POAG INTERVAL HISTORY - [facility] stable PMH- Rakesh Warren is a 86 year old with T2DM and history of Retinal detachment both eyes s/p repair. History of T2DM since late 1980s, on metformin, most recent A1c normal per patient. PAST OCULAR SURGERY PPV/SBP left eye 2009 SBP right eye 2009 RETINAL IMAGING OCT 12/31/21 OD - : trace ERM, PVD OS - : mild central atrophy/intraretinal deposits no fluid, stable HVF 24-2 12-25-20 OD- ?SAD stable, ?IAD new OS- Non specific defects, 25% FN OCT RNFL 12-25-20 OD - normal- stable measurements central & quadrants OS - borderline ST- stable ASSESSMENT/PLAN: # Retinal detachment OU s/p repair 2009 -SBP OD and PPV/SBP OS -retina flat both eyes -observe #. PVD OD -Stable, observe -s/sx Retinal detachment D/w patient 12/2021 #. Diabetes mellitus II no retinopathy -Blood sugar/blood pressure control -Annual dilated eye exams #. Primary open angle glaucoma - Followed with Dr. Velazquez and on Latanoprost at bedtime both eyes - On Latanoprost - target low 20's per Marcus ntoe - IOP OS mild elevation 12/2020 & 06/2021 - OCT RNFL OD normal stable, OS ?progression 12/31/[address] sector - OVF ?mild progression 12/2021 - recheck 6 months - if no improvement consider new gtt return to clinic: 6 months, OCT RNFL OU, OVF 24-2 OU, DFE OU ATTESTATION Attending Physician Attestation: Complete documentation of [...] patient and family Neeru Kathleen MD, PhD Bakery And Deli Sales Manager, Vitreoretinal Surgery Department of Ophthalmology [facility] documented in this encounter Nursing Notes Cheyenne Cardenas CO - 12/31/2021 12:10 PM CDT Chief Complaints and History of Present Illnesses Patient presents with ??? Follow Up Chief Complaint(s) and History of Present Illness(es) Follow Up Laterality: both eyes Associated symptoms: Negative for flashes, floaters, eye pain and photophobia Treatments tried: eye drops Pain scale: 0/10 Comments 6 month follow up Retinal detachment both eyes s/p repair, POAG. Eye meds: Latanaprost each eye at bedtime last night 10:30pm documented in this encounter Plan of Treatment Upcoming Encounters Date Type Specialty Care Team Description 07/08/2022 Office Visit Ophthalmology Brennen Kathleen MD [address] [place] [phone] (Wo rk) documented as of this encounter Procedures Procedure Name Priority Date/Time Associated Comments Diagnosis OCT OPTIC NERVE RNFL Routine 12/31/2021 12:42 PM Borderline gl aucoma Results for this SPECTRALIS OU (BOTH CDT with ocular procedur e are in EYES) hypertension, the results bilateral section. OVF 24-2 DYNAMIC OU Routine 12/31/2021 12:42 PM Borderline gla ucoma Results for this CDT with ocular procedure are i n hypertension, the results bilateral section. documented in this encounter Results OCT Optic Nerve RNFL Spectralis OU (both eyes) (12/31/2021 12:42 PM CDT) Narrative Neeru Kathleen MD - 12/31/2021 12:42 PM CDT Performed by: rp . Patient [...] bilateral documented in this encounter Care Teams Eyelet Maker Relationship Specialty Start Date End Date Vick Espinoza MD PCP - General [facility] Practice 09/15/14 [facility] [address] [place] [address] Cleopatra Velazquez MD MD Ophthalmology 10/10/[address] [place] [address] 493 [place], [place] [address] Neeru Kathleen MD Ophthalmology 12/14/17 MD [facility] [address] [place] [phone] Neeru Kathleen Assigned Surgical Provider 10/21/20 MD [facility] [address] [place] [phone] documented as of this encounter
--- OUTSIDE RECORDS SUMMARY | 2022-07-02 13:38 | XMS_ITS | Encounter Summary ---
:1935 Author Organization [place] Address [address] [place] [address] Care Team Providers Name Role Phone Vick Espinoza MD Primary Care Provider Cleopatra Velazquez MD Unavailable Neeru Kathleen MD Unavailable [phone] Reason for Visit Reason Comments Glaucoma Follow-Up 6 month follow-up Borderline glaucoma with ocular hypertension, both eyes Encounter Details Date Type Department Care Team Description 04/18/[address] [facility] Eye Cleopatra Velazquez B orderline glaucoma Clinic - Ronald PLASCENCIA with ocular Jones Wangensteen 420 [facility] hype rtension, Building MMC 493 bilateral (Primary 516 [facility] SE [place], [place] Dx) 9 Fl Clin 9A [address] [place], [place] [phone] (Work) [phone] Social History Tobacco Use Types Packs/Day Years Used Date Current Every Day Smoker Smokeless Tobacco: Never Used Sex Assigned at Date Recorded Not on file documented as of this encounter Progress Notes Cleopatra Velazquez MD - 04/18/2019 12:15 PM CDT CC:Glaucoma suspect. 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 - Cleopatra Velazquez MD 12:43 PM 04/18/2019 documented in this encounter Nursing Notes Lilliam Felder - 04/18/2019 12:15 PM CDT Chief Complaints and History of Present Illnesses Patient presents with ??? Glaucoma Follow-Up 6 month follow-up Borderline glaucoma with ocular hypertension, both eyes Chief Complaint(s) and History of Present Illness(es) Glaucoma Follow-Up Comments: 6 month follow-up Borderline glaucoma with ocular hypertension, both eyes Comments Pt denies any significant vision changes in either eye since last visit. Hx of floater- unchanged. Denies any flashes, pain, pressure, irritation, discharge, and tearing. Currently using latanoprost at bedtime BEMerced Felder OT 12:05 PM April 18, 2019 documented in this encounter Plan of Treatment Upcoming Encounters Date Type Specialty Care Team Description 07/08/2022 Office Visit Ophthalmology Brennen Kathleen MD 6 [facility] 911 [place], [place] [address] (Wo rk) documented as of this encounter Procedures Procedure Name Priority Date/Time Associated Comments Diagnosis OCT OPTIC NERVE RNFL Routine 04/18/2019 12:49 PM Borderline gl aucoma Results for this SPECTRALIS OU (BOTH CDT with ocular procedur e are in EYES) hypertension, the results bilateral section. documented in this encounter Results OCT Optic Nerve RNFL Spectralis OU (both eyes) (04/18/2019 12:49 PM CDT) Narrative Cleopatra Velazquez MD - 04/18/2019 12:49 PM CDT Performed by: tfw . Right Eye Interval: Same . Left Eye Interval: Same . Cleopatra Velazquez MD OPHTHALMOLOGY documented in this encounter Visit Diagnoses Diagnosis Borderline glaucoma with ocular hyperten caroline, bilateral - Primary documented in this encounter Care Teams Corporate Strategy Associate Relationship Specialty Start Date End Date Vick Espinoza MD PCP - General Family Practice 09/15/14 [facility] [address] [place] [address] Cleopatra Vealzquez MD MD Ophthalmology 10/10/[address] [place] [address] 493 [place], [place] [address] Neeru Kathleen MD MD Ophthalmology 12/14/17 [address] [address] [place], [place] [address] documented as of this encounter
--- OUTSIDE RECORDS SUMMARY | 2022-07-02 13:38 | XMS_ITS | Encounter Summary ---
:1935 Author Organization [place] Address [address] [facility] [address] Care Team Providers Name Role Phone Vick Espinoza MD Primary Care Provider Cleopatra Velazquez MD Unavailable Neeru Kathleen MD Unavailable [phone] Neeru Kathleen MD Unavailable [phone] Encounter Details Date Type Department Care Team Description 06/24/2021 [facility] Only [facility] Eye Neeru Kathleen ype 2 diabetes mellitus without retinopathy (H) (Primary Dx); Clinic - Ronald Burns MD Vitreous syneresis of both eyes Robert Greene [address] [place] [address] 9 Fl Clin 9A [address] [place], [place] [phone] (Wo rk) [address] [phone] Social History Tobacco Use Types Packs/Day Years Used Date Former Smoker Smokeless Tobacco: Never Used Sex Assigned at Date Recorded Not on file documented as of this encounter Plan of Treatment Upcoming Encounters Date Type Specialty Care Team Description 07/08/2022 Office Visit Ophthalmology Brennen Kathleen MD [address] [place] [address] (Wo rk) documented as of this encounter Results OCT Retina Spectralis OU [...] 2 diabetes mellitus without retinop athy (H) - Primary Type II or unspecified type diabetes kiran litus without mention of complication, not stated as uncontrolled 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, bilateral - Primary Type 2 diabetes mellitus without retinop athy (H) Type II or unspecified type diabetes kiran litus without mention of complication, not stated as uncontrolled Vitreous syneresis of both eyes documented in this encounter Care Teams Drug Discovery Informatics Specialist Relationship Specialty Start Date End Date Vick Espinoza MD PCP - General Family Practice 09/15/14 [facility] [address] [place] [address] Cleopatra Velazquez MD MD Ophthalmology 10/10/[address] [place] [address] 493 [place], [place] [phone] Neeru Kathleen MD Ophthalmology 12/14/17 MD [facility] [address] [place] [phone] Neeru Kathleen Assigned Surgical Provider 10/21/20 MD [facility] [address] [place] [phone] documented as of this encounter
--- OUTSIDE RECORDS SUMMARY | 2022-07-02 13:38 | XMS_ITS | Encounter Summary ---
:1935 Author Organization [place] Address [address] [place] [address] Care Team Providers Name Role Phone Vick Espinoza MD Primary Care Provider Cleopatra Velazquez MD Unavailable Neeru Kathleen MD Unavailable [phone] Reason for Visit Reason Onset Date Comments Refill Request 06/28/2018 latanoprost (XALATAN ) 0.005 % ophthalmic solution Encounter Details Date Type Department Care Team Description 06/28/2018 Refill M [facility] Eye Louann Velazquez MD Refill Request Clinic - [place] [address] [facility] (latanoprost (XALATAN) [place] [address] 0.005 % ophthalmic Building [place], [place] solution) 516 [facility] [place] [address] 9th Fl Clin 9A [place] [address] Social History Tobacco Use Types Packs/Day Years Used Date Current Every Day Smoker Smokeless Tobacco: Never Used Sex Assigned at Date Recorded Not on file documented as of this encounter Miscellaneous Notes Telephone Encounter - Isa Servin RN - 06/28/2018 3:25 PM CDT Last Clinic Visit: 04/07/[address] Velazquez Plan: Continue latanoprost both eyes at bedtime documented in this encounter Plan of Treatment Upcoming Encounters Date Type Specialty Care Team Description 07/08/2022 Office Visit Ophthalmology Brennen Kathleen MD 516 [facility] 911 [place], [place] [address] (Wo rk) documented as of this encounter Visit Diagnoses Diagnosis Borderline glaucoma with ocular hyperten caroline, bilateral documented in this encounter Care Teams Facilities Clerk Relationship Specialty Start Date End Date Vick Espinoza MD PCP - General Family Practice 09/15/14 [facility] [address] [place] [address] Cleopatra Velazquez MD MD Ophthalmology 10/10/15 420 [facility] 493 [place] [address] Neeru Kathleen MD MD Ophthalmology 12/14/17 516 [facility] 911 [place], [place] [phone] documented as of this encounter
--- OUTSIDE RECORDS SUMMARY | 2022-07-02 13:38 | XMS_ITS | Encounter Summary ---
:1935 Author Organization [place] Address [address] [place] [address] Care Team Providers Name Role Phone Vick Espinoza MD Primary Care Provider Cleopatra Velazquez MD Unavailable Neeru Kathleen MD Unavailable [phone] Neeru Kathleen MD Unavailable [phone] Encounter Details Date Type Department Care Team Description 12/31/2021 Travel Social History Tobacco Use Types Packs/Day [...] Office Visit Ophthalmology Brennen Kathleen MD 6 [facility] 911 [place], [place] [phone] (Wo rk) documented as of this encounter Visit Diagnoses Not on filedocumented in this encounter Care Teams Distributor Operator Relationship Specialty Start Date End Date Vick Espinoza MD PCP - General Family Practice 09/15/14 [facility] [address] [place] [address] Cleopatra Velazquez MD MD Ophthalmology 10/10/15 420 [facility] 493 [place], [place] [address] Neeru Kathleen MD Ophthalmology 12/14/17 MD [place] [address] [place] [phone] Neeru Kathleen Assigned Surgical Provider 10/21/20 MD [place] [address] [place] [address] [phone] documented as of this encounter
--- OUTSIDE RECORDS SUMMARY | 2022-07-02 13:38 | XMS_ITS | Encounter Summary ---
:1935 Author Organization [place] Address [address] [place] [address] Care Team Providers Name Role Phone Vick Espinoza MD Primary Care Provider Cleopatra Velazquez MD Unavailable Neeru Kathleen MD Unavailable [phone] Neeru Kathleen MD Unavailable [phone] Encounter Details Date Type Department Care Team Description 12/17/2020 Orders Only [facility] Eye Neeru Kathleen orderline glaucoma Clinic - Ronald Burns MD with ocular Jones Wangensteen [address] [facility] Emergency Department ypertension, Building SAR[facility] 911 bilateral (Primary 6 [place], [place] Dx) 9 Fl Clin 9A [address] [place], [place] [phone] (Wo rk) [phone] Social History Tobacco Use Types Packs/Day Years Used Date Former Smoker Smokeless Tobacco: Never Used Sex Assigned at Date Recorded Not on file documented as of this encounter Plan of Treatment Upcoming Encounters Date Type Specialty Care Team Description 07/08/2022 Office Visit Ophthalmology Brennen Kathleen MD [address] [place] [address] 911 [place], [place] [phone] (Wo rk) documented as of this encounter Results OVF 24-2 Dynamic OU [...] Interval: Same . 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, bilateral documented in this encounter Care Teams Consulting Networking Engineer Relationship Specialty Start Date End Date Vick Espinoza MD PCP - General Family Practice 09/15/14 [facility] [address] [place] [address] Cleopatra Velazquez MD MD Ophthalmology 10/10/[address] [place] [address] 493 [place], [place] [phone] Neeru Kathleen MD Ophthalmology 12/14/17 MD [place] [address] [place] [phone] Neeru Kathleen Assigned Surgical Provider 10/21/20 MD [place] [address] [place] [phone] documented as of this encounter
--- OUTSIDE RECORDS SUMMARY | 2022-07-02 13:38 | XMS_ITS | Encounter Summary ---
:1935 Author Organization [place] Address [address] [facility] [place] [address] Care Team Providers Name Role Phone Vick Espinoza MD Primary Care Provider Cleopatra Velazquez MD Unavailable Neeru Kathleen MD Unavailable [phone] Encounter Details Date Type Department Care Team Description 02/11/2019 Travel Social History Tobacco Use Types Packs/Day Years Used Date Current Every Day Smoker Smokeless Tobacco: Never Used Sex Assigned at Date Recorded Not on file documented as of this encounter Plan of Treatment Upcoming Encounters Date Type Specialty Care Team Description 07/08/2022 Office Visit Ophthalmology Brennen Kathleen MD [address] [place] [phone] (Wo rk) documented as of this encounter Visit Diagnoses Not on filedocumented in this encounter Care Teams Cabin Equipment Supervisor Relationship Specialty Start Date End Date Vick Espinoza MD PCP - General Family Practice 09/15/14 [facility] [address] [place] [address] Cleopatra Velazquez MD MD Ophthalmology 10/10/15 420 [facility] 493 [place], [place] [phone] Neeru Kathleen MD MD Ophthalmology 12/14/[address] [place] [address] [phone] documented as of this encounter
--- OUTSIDE RECORDS SUMMARY | 2022-07-02 13:38 | XMS_ITS | Encounter Summary ---
:1935 Author Organization [place] Address [address] [place] [address] Care Team Providers Name Role Phone Vick Espinoza MD Primary Care Provider Cleopatra Velazquez MD Unavailable Neeru Kathleen MD Unavailable [phone] Reason for Visit Reason Comments Follow Up Borderline glaucoma with ocu lar hypertension Encounter Details Date Type Department Care Team Description 04/07/2018 Office Visit [facility] Eye Cleopatra Velazquez B orderline glaucoma Clinic - Ronald PLASCENCIA with ocular Jones Wangensteen [address] [facility] hype rtension, Building [facility] 493 bilateral 516 [place], [place] 9 Ut Clin 9A [address] [place], [place] [phone] (Work) [phone] Social History Tobacco Use Types Packs/Day Years Used Date Current Every Day Smoker Smokeless Tobacco: Never Used Sex Assigned at Date Recorded Not on file documented as of this encounter Progress Notes Cleopatra Velazquez MD - 04/07/2018 1:45 PM CDT Glaucoma suspect. Followed by diabetic retinopathy Hever for retinal detachment left eye s/p Pars plana vitrectomy/SB left eye and SB right eye 2009. 1. 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 Retinal detachment both eyes s/p repair 2010 -SBP right eye and Pars plana vitrectomy (PPV)/SBP left eye -retina flat both eyes -observe 3. Pseudophakia of both eyes -Stable, observe 4. Posterior vitreous detachment of right eye -Stable, observe 5. 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 - Cleopatra Velazquez MD 2:41 PM 04/07/2018 documented in this encounter Plan of Treatment Upcoming Encounters Date Type Specialty Care Team Description 07/08/2022 Office Visit Ophthalmology Brennen Kathleen MD 6 [facility] 911 [place], [place] [address] (Wo rk) Pending Results Name Type Priority Associated Diagnoses Date/Ti ia OCT Optic Nerve RNFL Opht Imaging Routine Borderline glaucoma 04/07/2018 2:09 PM Spectralis OU (both with ocular CDT eyes) hypertension, bilateral documented as of this encounter Visit Diagnoses Diagnosis Borderline glaucoma with ocular hyperten caroline, bilateral documented in this encounter Care Teams Accountant Cost Relationship Specialty Start Date End Date Vick Espinoza MD PCP - General Family Practice 09/15/14 [facility] [address] [place] [address] Cleopatra Velazquez MD MD Ophthalmology 10/10/15 420 [facility] 493 [place], [place] [phone] Neeru Kathleen MD MD Ophthalmology 12/14/[address] [place] [address] documented as of this encounter
--- OUTSIDE RECORDS SUMMARY | 2022-07-02 13:38 | XMS_ITS | Encounter Summary ---
:1935 Author Organization [place] Address [address] [place] [address] Care Team Providers Name Role Phone Vick Espinoza MD Primary Care Provider Cleopatra Velazquez MD Unavailable Neeru Kathleen MD Unavailable [phone] Encounter Details Date Type Department Care Team Description 06/01/2020 Travel Social History Tobacco Use Types Packs/Day Years Used Date Current Every Day Smoker Smokeless Tobacco: Never Used Sex Assigned at Date Recorded Not on file COVID-19 Exposure Response Date Recorded In the last month, have you been in contact Unable to assess 06/01/2020 7:28 AM CDT with someone who was confirmed or suspected to have Coronavirus / COVID-19? documented as of this encounter Plan of Treatment Upcoming Encounters Date Type Specialty Care Team Description 07/08/2022 Office Visit Ophthalmology Brennen Kathleen MD 6 [facility] 911 [place] [address] (Wo rk) documented as of this encounter Visit Diagnoses Not on filedocumented in this encounter Care Teams Business Continuity Management Director Relationship Specialty Start Date End Date Vick Espinoza MD PCP - General Family Practice 09/15/14 [facility] [address] [place] [address] Cleopatra Velazquez MD MD Ophthalmology 10/10/15 420 [facility] 493 [place] [address] Neeru Kathleen MD MD Ophthalmology 12/14/[address] [place] [address] documented as of this encounter
--- OUTSIDE RECORDS SUMMARY | 2022-07-02 13:38 | XMS_ITS | Encounter Summary ---
:1935 Author Organization [place] Address [address] [facility] [place] [address] Care Team Providers Name Role Phone Vick Espinoza MD Primary Care Provider Cleopatra Velazquez MD Unavailable Neeru Kathleen MD Unavailable [phone] Encounter Details Date Type Department Care Team Description 04/08/2019 Travel Social History Tobacco Use Types Packs/Day Years Used Date Current Every Day Smoker Smokeless Tobacco: Never Used Sex Assigned at Date Recorded Not on file documented as of this encounter Plan of Treatment Upcoming Encounters Date Type Specialty Care Team Description 07/08/2022 Office Visit Ophthalmology Brennen Kathleen MD [address] [place] [phone] (Wo rk) documented as of this encounter Visit Diagnoses Not on filedocumented in this encounter Care Teams Deicer Kit Assembler Relationship Specialty Start Date End Date Vick Espinoza MD PCP - General Family Practice 09/15/14 [facility] [address] [place] [address] Cleopatra Velazquez MD MD Ophthalmology 10/10/15 420 [facility] 493 [place], [place] [phone] Neeru Kathleen MD MD Ophthalmology 12/14/[address] [place] [address] [phone] documented as of this encounter
--- OUTSIDE RECORDS SUMMARY | 2022-07-02 13:38 | XMS_ITS | Encounter Summary ---
:1935 Author Organization [place] Address [address] [place] [address] Care Team Providers Name Role Phone Vick Espinoza MD Primary Care Provider Cleopatra Velazquez MD Unavailable Neeru Kathleen MD Unavailable [phone] Reason for Visit Reason Comments Medication Refill Encounter Details Date Type Department Care Team Description 05/21/2020 Refill [facility] Eye Louann Velazquez MD Medication Refill Clinic - [address] 516 [facility] [place] [phone] Social History Tobacco Use Types Packs/Day Years Used Date Current Every Day Smoker Smokeless Tobacco: Never Used Sex Assigned at Date Recorded Not on file documented as of this encounter Miscellaneous Notes Telephone Encounter - Brandi Mayo RN - 05/21/2020 11:04 AM CDT Medication: latanoprost (XALATAN) 0.005 % ophthalmic solution Diagnosis: Borderline glaucoma with ocular hypertension, bilateral Requested directions: same Current directions on the medication list: Place 1 drop into both eyes At Bedtime Last Written Prescription Date: 12/02/19 Last Fill Quantity: 7.5 ml, # refills: 2 Last Office Visit: 10/19/19 Future Office visit: 06/12/20 Attending Provider: Cleopatra Velazquez MD Last Clinic Note: 10/19/19 PLAN: Continue latanoprost both eyes at bedtime Return to clinic in 6 months with IOP check, OCT RNFL, dilated exam Would like to be seen closer to home ?? [place] [facility] and helped with Cognection also ?? Maylin Cortez MD Ophthalmology Resident, PGY-3 Routing refill request to provider for review/approval because: Not on medication list Not on protocol Requires provider review Inconsistent dose/directions Scheduled Medication documented in this encounter Plan of Treatment Upcoming Encounters Date Type Specialty Care Team Description 07/08/2022 Office Visit Ophthalmology Brennen Kathleen MD 516 [facility] 911 [place], [place] [address] (Wo rk) documented as of this encounter Visit Diagnoses Diagnosis Borderline glaucoma with ocular hyperten caroline, bilateral documented in this encounter Care Teams Backend Tester Relationship Specialty Start Date End Date Vick Espinoza MD PCP - General Family Practice 09/15/14 [facility] [address] [place] [address] Cleopatra Velazquez MD MD Ophthalmology 10/10/15 420 [facility] 493 [place], [place] [address] Neeru Kathleen MD MD Ophthalmology 12/14/17 516 [facility] 911 [place], [place] [address] documented as of this encounter
--- OUTSIDE RECORDS SUMMARY | 2022-07-02 13:38 | XMS_ITS | Clinical Summary ---
:1935 Author Organization [place] Address [address] [place] [address] Care Team Providers Name Role Phone Vick Espinoza MD Primary Care Provider Cleopatra Velazquez MD Unavailable Neeru Kathleen MD Unavailable [phone] Neeru Kathleen MD Unavailable [phone] Allergies No known active allergies Medications Medication Sig Dispensed Refills Start Date End Date Status SIMVASTATIN PO Take 20 mg by 0 A ctive mouth At Bedtime amLODIPine (NORVASC) 5 Take 5 mg by 0 Active MG tablet mouth daily metFORMIN (GLUCOPHAGE) Take 500 mg by 0 Active 500 MG tablet mouth 2 times daily (with meals) lisinopril Take 40 mg by 0 Activ e (PRINIVIL,ZESTRIL) 20 mouth daily MG tablet Multiple Take 1 tablet by 0 Act mark Vitamins-Minerals mouth daily (CENTRUM SILVER) per tablet aspirin 81 MG tablet Take 1 tablet by 0 Active mouth daily FINASTERIDE PO 0 Activ e VITAMIN D, Take by mouth 0 Activ e CHOLECALCIFEROL, PO daily lisinopril-hydrochlorot Take 1 tablet by 0 Active hiazide mouth daily (PRINZIDE,ZESTORETIC) 20-25 MG per tablet Tadalafil (CIALIS PO) 0 Active METFORMIN HCL PO Take 1,000 mg by 0 Active mouth PROPYLTHIOURACIL PO Take by mouth 2 0 Active times daily UNKNOWN TO PATIENT UTI antibiotic 0 Active Cyanocobalamin (B-12 Take 1 tablet by 0 Active PO) mouth daily latanoprost (XALATAN) Place 1 drop into 7.5 mL 11 07/16/2021 Active 0.005 % ophthalmic both eyes At solutionIndications: Bedtime Borderline glaucoma with ocular hypertension, bilateral Active Problems Problem Noted Date Borderline glaucoma with ocular hypertension, rick l 06/08/2017 Ocular hypertension 10/16/2014 Encounters Date Type Specialty Care Team Description 07/01/2022 Orders Only Ophthalmology Neeru Kathleen glaucoma with ocular hypertension, bilateral (Primary Dx); MD [place] Type 2 diabetes mellitus without retinopathy (H); Vitreous synere sis of both eyes from Last 3 Months Family History Medical History Relation Comments Macular Degeneration Brother Glaucoma No family hx of Relation Status Comments Brother Social History Tobacco Use Types Packs/Day Years Used Date Former Smoker Smokeless Tobacco: Never Used Sex Assigned at Date Recorded Not on file Plan of Treatment Upcoming Encounters Date Type Specialty Care Team Description 07/08/2022 Office Visit Ophthalmology Brennen Kathleen MD [address] [place] [phone] (Wo rk) Health Maintenance Due Date Last Done Comments A1C 1935 ADVANCE CARE PLANNING 1935 ANNUAL REVIEW OF HM ORDERS 1935 BMP 1936 DIABETIC FOOT EXAM 1936 LIPID 1936 MICROALBUMIN 1936 MEDICARE ANNUAL WELLNESS 2001 VISIT COVID-19 Vaccine (4 - 10/29/2021 09/03/2021, 12/08/2020, Booster for Pfizer series) 11/17/2020 FALL RISK ASSESSMENT 12/25/2021 12/25/2020, 10/19/2019, 02/11/2019, Additional history exists INFLUENZA VACCINE (#1) 2022 06/24/2021, 05/31/2020, 07/12/2019, Additional history exists EYE EXAM 07/02/2022 07/02/2021, 06/12/2020, 02/11/2019, Additional history exists DTAP/TDAP/TD IMMUNIZATION 07/09/2024 07/09/2014, 03/22/2012 , (4 - Td or Tdap) 03/02/2008 IPV IMMUNIZATION Aged Out 05/16/2015 No longer eligi ble based on patient 's age to complete this topic ZOSTER IMMUNIZATION Completed 06/26/2019, 04/07/2019, 09/25/2010 Pneumococcal Vaccine: 65+ Completed 08/23/2021, 01/24/2015 Years PHQ-2 (once per calendar Completed 12/31/2021, 12/25/2020, year) 10/19/2019, Additional history exists MENINGITIS IMMUNIZATION Aged Out No longe r eligible based on patient 's age to complete this topic Insurance Payer Benefit Plan / Subscriber ID Effective Phone Address T ype Group Dates MEDICARE MEDICARE FOR HB [id number] 2001-Prese [phone] ATTN CLAIMS Medicare SUPPLEMENT nt 40 [address] [place] [address] BCBS [place]BS [place] [id number] 2016-Prese [phone] [address] [address] PPO BLUE nt 00 [place] [address] Care Teams Business Management Analyst Relationship Specialty Start Date End Date Vick Espinoza MD PCP - General Family Practice 09/15/14 [facility] [address] [place] [address] Cleopatra Velazquez MD MD Ophthalmology 10/10/15 420 [facility] 493 [place] [address] Neeru Kathleen MD Ophthalmology 12/14/17 MD [place] [address] [place] [address] Neeru Kathleen Assigned Surgical Provider 10/21/20 MD [place] [address] [place] [address]
--- OUTSIDE RECORDS SUMMARY | 2022-07-02 13:38 | XMS_ITS | Encounter Summary ---
:1935 Author Organization [place] Address [address] [facility] [place] [address] Care Team Providers Name Role Phone Vick Espinoza MD Primary Care Provider Cleopatra Velazquez MD Unavailable Neeru Kathleen MD Unavailable [phone] Encounter Details Date Type Department Care Team Description 04/18/2019 Travel Social History Tobacco Use Types Packs/Day Years Used Date Current Every Day Smoker Smokeless Tobacco: Never Used Sex Assigned at Date Recorded Not on file documented as of this encounter Plan of Treatment Upcoming Encounters Date Type Specialty Care Team Description 07/08/2022 Office Visit Ophthalmology Brennen Kathleen MD [address] [place] [phone] (Wo rk) documented as of this encounter Visit Diagnoses Not on filedocumented in this encounter Care Teams Senior Premium Auditor Relationship Specialty Start Date End Date Vick Espinoza MD PCP - General Family Practice 09/15/14 [facility] [address] [place] [address] Cleopatra Velazquez MD MD Ophthalmology 10/10/15 420 [facility] 493 [place], [place] [phone] Neeru Kathleen MD MD Ophthalmology 12/14/[address] [place] [phone] documented as of this encounter
--- OUTSIDE RECORDS SUMMARY | 2022-07-02 13:38 | XMS_ITS | Encounter Summary ---
:1935 Author Organization [place] Address [address] [place] [address] Care Team Providers Name Role Phone Vick Espinoza MD Primary Care Provider Cleopatra Velazquez MD Unavailable Neeru Kathleen MD Unavailable [phone] Reason for Visit Reason Comments Follow Up 1 year follow up Retinal det achment both eyes s/p repair 2009 Encounter Details Date Type Department Care Team Description 02/11/2019 Office Visit [facility] Eye Neeru Kathleen ype 2 diabetes Clinic - Ronald Burns MD mellitus without Jones [address]ens[address] etinopathy (H) [address] 9 [facility] [facility] [address] [place], [place] [phone] (Work) [phone] Social History Tobacco Use Types Packs/Day Years Used Date Current Every Day Smoker Smokeless Tobacco: Never Used Sex Assigned at Date Recorded Not on file documented as of this encounter Progress Notes Neeru Kathleen MD - 02/11/2019 9:40 AM CDT CC - h/o Retinal detachment both eyes s/p repair INTERVAL HISTORY - Vision stable per patient. No concerns. Rare floaters stable, no flashes HPI - Rakesh [place] is a 82yo male with T2DM and history of Retinal detachment both eyes s/p repair. History of T2DM since late 1980s, on metformin, most recent A1c normal per patient. PAST OCULAR SURGERY PPV/SBP left eye 2009 SBP right eye 2009 RETINAL IMAGING OCT 02-09-18 OCT right eye: Normal contour without SRF/IRF, trace ERM OCT left eye: Normal contour, mild central atrophy/intraretinal deposits without SRF/IRF, stable ASSESSMENT/PLAN: 1. Retinal detachment both eyes s/p repair 2009 -SBP right eye and Pars plana vitrectomy (PPV)/SBP left eye -retina flat both eyes -observe 2. PVD OD -Stable, observe -s/sx Retinal detachment D/w patient 02/2019 3. 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 Primary open angle glaucoma - Follows with Dr. Velazquez and on Latanoprost at bedtime both eyes - Good response with Latanoprost - at target IOP per Dr. Velazquez (low 20's) return to clinic: 1 year or sooner as needed, OCT both eyes ATTESTATION Attending Physician Attestation: Complete documentation of [...] patient and family Neeru Kathleen MD, PhD Gymnasium Teacher, Vitreoretinal Surgery Department of Ophthalmology [facility] documented in this encounter Nursing Notes Tl, HERRERA guerra - 02/11/2019 9:40 AM CDT Chief Complaints and History of Present Illnesses Patient presents with ??? Follow Up 1 year follow up Retinal detachment both eyes s/p repair 2009 Chief Complaint(s) and History of Present Illness(es) Follow Up Comments: 1 year follow up Retinal detachment both eyes s/p repair 2009 Comments Pt states vision is the same as last visit. No eye pain today. No flashes. Occasional floaters BE, no changes. DM2 BS: 140 yesterday morning. A1C: unknown to pt. No results found for: A1C Shantel SILVERMAN February 11, 2019 9:20 AM documented in this encounter Plan of Treatment Upcoming Encounters Date Type Specialty Care Team Description 07/08/2022 Office Visit Ophthalmology Brennen Kathleen MD [address] [address] (Wo rk) documented as of this encounter Procedures Procedure Name Priority Date/Time Associated Diagnosis Comme nts OCT RETINA Routine 02/11/2019 11:44 Type 2 diabetes Results for this SPECTRALIS OU (BOTH AM CDT mellitus without proc edure are in EYE) retinopathy (H) the results section. documented in this encounter Results OCT Retina Spectralis OU (both eyes) (06/12/2020 1:13 PM CDT) Narrative Neeru Kathleen MD - 06/12/2020 1:13 PM CDT [...] viewed this imaging studay and the doc [facility] here and in the chart note reflect my findings and interpretat ion. Neeru Kathleen MD OPHTHALMOLOGY OCT Retina Spectralis OU (both eyes) (02/11/2019 11:44 AM CDT) Narrative Neeru Kathleen MD - 02/11/2019 11:44 AM CDT Patient cooperation: Reliable . Right Eye Reliability [...] note reflect my findings and interpretat ion. Katharina Goldberg MD OPHTHALMOLOGY documented in this encounter Visit Diagnoses Diagnosis Type 2 diabetes mellitus without retinop athy (H) Type II or unspecified type diabetes kiran litus without mention of complication, not stated as uncontrolled Borderline glaucoma with ocular hyperten caroline, bilateral - Primary Type 2 diabetes mellitus without retinop athy (H) Type II or unspecified type diabetes kiran litus without mention of complication, not stated as uncontrolled documented in this encounter Care Teams Inside Sales Administrator Relationship Specialty Start Date End Date Vick Espinoza MD PCP - General Family Practice 09/15/14 [facility] [address] [place] [address] Cleopatra Velazquez MD MD Ophthalmology 10/10/15 420 [facility] 493 [place] [address] Neeru Kathleen MD MD Ophthalmology 12/14/17 [address] [facility] 911 [place] [address] documented as of this encounter
--- OUTSIDE RECORDS SUMMARY | 2022-07-02 13:38 | XMS_ITS | Encounter Summary ---
:1935 Author Organization [place] Address [address] [place] [address] Care Team Providers Name Role Phone Vick Espinoza MD Primary Care Provider Cleopatra Velazquez MD Unavailable Neeru Kathleen MD Unavailable [phone] Neeru Kathleen MD Unavailable [phone] Encounter Details Date Type Department Care Team Description 12/25/2020 Travel Social History Tobacco Use Types Packs/Day [...] 07/08/2022 Office Visit Ophthalmology Brennen Kathleen MD [address] [place] [address] 911 [place], [place] [phone] (Wo rk) documented as of this encounter Visit Diagnoses Not on filedocumented in this encounter Care Teams Architectural Drafting Instructor Relationship Specialty Start Date End Date Vick Espinoza MD PCP - General Family Practice 09/15/14 [facility] [address] [place] [address] Cleopatra Velazquez MD MD Ophthalmology 10/10/15 420 [facility] 493 [place], [place] [address] Neeru Kathleen MD Ophthalmology 12/14/17 MD [place] [address] [place] [phone] Neeru Kathleen Assigned Surgical Provider 10/21/20 MD [place] [address] [place] [address] [phone] documented as of this encounter
--- OUTSIDE RECORDS SUMMARY | 2022-07-02 13:38 | XMS_ITS | Encounter Summary ---
:1935 Author Organization [place] Address [address] [place] [address] Care Team Providers Name Role Phone Vick Espinoza MD Primary Care Provider Cleopatra Velazquez MD Unavailable Neeru Kathleen MD Unavailable [phone] Neeru Kathleen MD Unavailable [phone] Encounter Details Date Type Department Care Team Description 07/01/2022 Orders Only [facility] Eye Neeru Kathleen orderline glaucoma with ocular hypertension, bilateral (Primary Dx); Clinic - Ronald Burns MD Type 2 diabetes mellitus without retinop athy (H); Jones Wangensteen [address] [place] [address] V itreous syneresis of both eyes [address] 9 Clin 9A [address] [place], [place] [phone] (Wo rk) [phone] [phone] Social History Tobacco Use Types Packs/Day Years Used Date Former Smoker Smokeless Tobacco: Never Used Sex Assigned at Date Recorded Not on file documented as of this encounter Plan of Treatment Upcoming Encounters Date Type Specialty Care Team Description 07/08/2022 Office Visit Ophthalmology Brennen Kathleen MD [address] [address] (Wo rk) documented as of this encounter Visit Diagnoses Diagnosis Borderline glaucoma with ocular hyperten caroline, bilateral - Primary Type 2 diabetes mellitus without retinop athy (H) Type II or unspecified type diabetes kiran litus without mention of complication, not stated as uncontrolled Vitreous syneresis of both eyes documented in this encounter Care Teams Cylinder Machine Operator Relationship Specialty Start Date End Date Vick Espinoza MD PCP - General [facility] Practice 09/15/14 [facility] [address] [place] [address] Cleopatra Velazquez MD MD Ophthalmology 10/10/[address] [place] [address] [address] [place] [address] Neeru Kathleen MD Ophthalmology 12/14/17 MD Grant [address] [place] [phone] Neeru Kathleen Assigned Surgical Provider 10/21/20 MD Grant [address] [place] [phone] documented as of this encounter
--- OUTSIDE RECORDS SUMMARY | 2022-07-02 13:38 | XMS_ITS | Encounter Summary ---
:1935 Author Organization [place] Address [address] 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) Encounter Details Date Type Department Care Team Description 02/09/2018 Office Visit [facility] Eye Neeru Kathleen ype 2 diabetes mellitus without retinopathy (H); Clinic - Ronald Burns MD H/O detached retina repair; Robert [address] Hi Clin 9A [address] [place], [place] [phone] (Work) [phone] Social History Tobacco Use Types Packs/Day Years Used Date Current Every Day Smoker Smokeless Tobacco: Never Used Sex Assigned at Date Recorded Not on file documented as of this encounter Patient Instructions Patient InstructionsIvy Kerr - 02/09/2018 10:00 AM CDT Future Appointments Date Time Provider Department Center 04/07/2018 1:45 PM Cleopatra Velazquez MD [facility] 02/15/2019 10:00 AM Neeru Kathleen MD [facility] documented in this encounter Progress Notes Neeru Kathleen MD - 02/09/2018 10:00 AM CDT CC - h/o Retinal detachment both eyes s/p repair INTERVAL HISTORY - Vision stable per patient. No concerns. History of T2DM since late , on metformin, most recent A1c normal per patient. HPI - Rakesh Warren is a 82yo male with T2DM and history of Retinal detachment both eyes s/p repair. PAST OCULAR SURGERY PPV/SBP left eye 2009 SBP right eye 2009 RETINAL IMAGING OCT 02-09-18 OCT right eye: Normal contour without SRF/IRF, trace ERM OCT left eye: Normal contour, mild central atrophy/intraretinal deposits without SRF/IRF, stable ASSESSMENT/PLAN: 1. Retinal detachment both eyes s/p repair 2009 -SBP right eye and Pars plana vitrectomy (PPV)/SBP left eye -retina flat both eyes -observe 2. Posterior vitreous detachment of right eye -Stable, observe -s/sx Retinal detachment D/w patient 3. 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 Primary open angle glaucoma - Follows with Dr. Velazquez and on Latanoprost at bedtime both eyes - Good response with Latanoprost - at target IOP per Dr. Velazquez (low 20's) 5.Pseudophakia of both eyes -Stable, observe return to clinic: 1 year or sooner as needed, OCT both eyes Katharina Goldberg MD Ophthalmology PGY-3 ATTESTATION Attending Physician Attestation: Complete documentation [...] patient and family Neeru Kathleen MD, PhD Central Sterile Technician, Vitreoretinal Surgery Department of Ophthalmology [facility] documented in this encounter Nursing Notes Matthias Read - 02/09/2018 10:00 AM CDT Chief Complaints and History of Present Illnesses Patient presents with ??? 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 He says his A1C is in normal range BS is unknown today. Matthias Read COT 10:48 AM February 09, 2018 documented in this encounter Plan of Treatment Upcoming Encounters Date Type Specialty Care Team Description 07/08/2022 Office Visit Ophthalmology Brennen Kathleen MD [address] [place] [address] (Wo rk) documented as of this encounter Procedures Procedure Name Priority Date/Time Associated Diagnosis Comme nts OCT RETINA Routine 02/09/2018 12:24 Type 2 diabetes Results for this SPECTRALIS OU (BOTH PM CDT mellitus without proc edure are in EYE) retinopathy (H) the results H/O detached retina section. repair Pseudophakia documented in this encounter Results OCT Retina Spectralis OU (both eyes) (02/11/2019 [...] and interpretat ion. Katharina Goldberg MD OPHTHALMOLOGY OCT Retina Spectralis OU (both eyes) (02/09/2018 [...] ans Pseudophakia Lens replaced by other means Type 2 diabetes mellitus without retinop athy (H) Type II or unspecified type diabetes kiran litus without mention of complication, not stated as uncontrolled documented in this encounter Care Teams Thermodynamics Teacher Relationship Specialty Start Date End Date Vick Espinoza MD PCP - General Family Practice 09/15/14 [facility] [address] [place] [address] Cleopatra Velazquez MD MD Ophthalmology 10/10/[address] [facility] [address] [place], [place] [address] Neeru Kathleen MD MD Ophthalmology 12/14/17 [address] [facility] [address] [place] [place], [place] [address] documented as of this encounter
--- OUTSIDE RECORDS SUMMARY | 2022-07-02 13:38 | XMS_ITS | Encounter Summary ---
:1935 Author Organization [place] Address [address] [facility] [place] [address] Care Team Providers Name Role Phone Vick Espinoza MD Primary Care Provider Cleopatar Velazquez MD Unavailable Neeru Kathleen MD Unavailable [phone] Encounter Details Date Type Department Care Team Description 10/10/2019 Travel Social History Tobacco Use Types Packs/Day Years Used Date Current Every Day Smoker Smokeless Tobacco: Never Used Sex Assigned at Date Recorded Not on file documented as of this encounter Plan of Treatment Upcoming Encounters Date Type Specialty Care Team Description 07/08/2022 Office Visit Ophthalmology Brennen Kathleen MD [address] [place] [address] (Wo rk) documented as of this encounter Visit Diagnoses Not on filedocumented in this encounter Care Teams Cone Sewer Relationship Specialty Start Date End Date Vick Espinoza MD PCP - General Family Practice 09/15/14 [facility] [address] [place] [address] Cleopatra Velazquez MD MD Ophthalmology 10/10/15 420 [facility] [place] [address] [place], [place] [phone] Neeru Kathleen MD MD Ophthalmology 12/14/[address] [place] [phone] documented as of this encounter
--- OUTSIDE RECORDS SUMMARY | 2022-07-02 13:38 | XMS_ITS | Encounter Summary ---
:1935 Author Organization [place] Address [address] [facility] [address] Care Team Providers Name Role Phone Vick Espinoza MD Primary Care Provider Cleopatra Velazquez MD Unavailable Neeru Kathleen MD Unavailable [phone] Encounter Details Date Type Department Care Team Description 10/13/2018 Travel Social History Tobacco Use Types Packs/Day Years Used Date Current Every Day Smoker Smokeless Tobacco: Never Used Sex Assigned at Date Recorded Not on file documented as of this encounter Plan of Treatment Upcoming Encounters Date Type Specialty Care Team Description 07/08/2022 Office Visit Ophthalmology Brennen Kathleen MD [address] [place] [phone] (Wo rk) documented as of this encounter Visit Diagnoses Not on filedocumented in this encounter Care Teams Station Jailer Relationship Specialty Start Date End Date Vick Espinoza MD PCP - General Family Practice 09/15/14 [facility] [address] [place] [address] Cleopatra Velazquez MD MD Ophthalmology 10/10/15 420 [facility] [address] [place], [place] [phone] Neeru Kathleen MD MD Ophthalmology 12/14/[address] [place] [phone] documented as of this encounter
--- OUTSIDE RECORDS SUMMARY | 2022-07-02 13:38 | XMS_ITS | Encounter Summary ---
:1935 Author Organization [place] Address [address] [place] [address] Care Team Providers Name Role Phone Vick Espinoza MD Primary Care Provider Cleopatra Velazquez MD Unavailable Neeru Kathleen MD Unavailable [phone] Neeru Kathleen MD Unavailable [phone] Encounter Details Date Type Department Care Team Description 07/02/2021 Travel Social History Tobacco Use Types Packs/Day [...] Office Visit Ophthalmology Brennen Kathleen MD 6 [facility] [address] [place] [address] (Wo rk) documented as of this encounter Visit Diagnoses Not on filedocumented in this encounter Care Teams Coal Hiker Relationship Specialty Start Date End Date Vick Espinoza MD PCP - General Family Practice 09/15/14 [facility] [address] [place] [address] Cleopatra Velazquez MD MD Ophthalmology 10/10/15 420 [facility] [address] [place], [place] [address] Neeru Kathleen MD Ophthalmology 12/14/17 MD Grant [address] [place] [phone] Neeru Kathleen Assigned Surgical Provider 10/21/20 MD Grant [address] [place] [address] [phone] documented as of this encounter
--- OUTSIDE RECORDS SUMMARY | 2022-07-02 13:39 | XMS_ITS | Encounter Summary ---
:1935 Author Organization [place] Address [address] [place] [address] Care Team Providers Name Role Phone Vick Espinoza MD Primary Care Provider Reason for Visit Reason Comments Glaucoma Follow Up 6 month follow up Encounter Details Date Type Department Care Team Description 10/16/[address] 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 Followed by diabetic retinopathy Hever for retinal detachment left eye s/p Pars plana vitrectomy/SB left eye and SB right eye 2009. 1. Glaucoma suspect Ocular hypertension with intraocular pressure mid 20's right eye and low 30's left eye Today Left eye higher than previous intraocular pressure Had normal OCT left eye 6 months ago Visual field Right eye with new inferior arcuate, high false positives Left eye no focal loss but 44% false positives 2. Retinal detachment both eyes s/p repair 2010 -SBP right eye and Pars plana vitrectomy (PPV)/SBP left eye -retina flat both eyes -observe 3. Pseudophakia of both eyes -Stable, observe 4. Posterior vitreous detachment of right eye -Stable, observe -s/sx Retinal detachment D/w patient 5. 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 I have confirmed and edited as necessary the chief complaint(s), history of present illness, review of systems, relevant history,and examination findings as documented by others. I have personally reviewed the relevant tests, images, and reports as documented above. I have confirmed and edited as necessary the assessment and plan and agree with this note. - Cleopatra Velazquez MD 12:33 PM 10/16/2014 CLERK documented in this encounter Nursing Notes Jeaneth Victor - 10/16/2014 10:10 AM CST Chief Complaints and History of Present Illnesses Patient presents with ??? Glaucoma Follow Up 6 month follow up HPI Last Eye Exam: 03/20/14 Affected eye(s): Both Symptoms: No decreased vision Floaters (Comment: no change in floater) No flashes No redness No photophobia No eye discharge Do you have eye pain now?: No Comments: DM: type 2, BS: 126 yesterday No results found for this basename: a1c Jeaneth Victor, October 16, 2014 10:10 AM CLERK documented in this encounter Plan of Treatment Upcoming Encounters Date Type Specialty Care Team Description 07/08/2022 Office Visit Ophthalmology Brennen Kathleen MD [address] [place] [phone] (Wo rk) documented as of this encounter Procedures Procedure Name Priority Date/Time Associated Diagnosis Comme nts GLAUCOMA TOP OU Routine 10/16/2014 12:49 PM OSD CLERK Primary Open-A ngle Glaucoma(365.11) documented in this encounter Results OCT Optic Nerve RNFL Spectralis OU (both eyes) (04/23/2015 2:15 PM CDT) Cleopatra Velazquez MD OPHTHALMOLOGY Glaucoma Top OU (10/16/2014 12:49 PM OSD CLERK) Cleopatra Velazquez MD OPHTHALMOLOGY documented in this encounter Visit Diagnoses Diagnosis Primary open-angle glaucoma(365.11) - Pr imary Primary open-angle glaucoma Ocular hypertension, 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 [address] [place] [address] documented as of this encounter
--- OUTSIDE RECORDS SUMMARY | 2022-07-02 13:39 | XMS_ITS | Encounter Summary ---
:1935 Author Organization [place] Address [facility] [place] [address] Care Team Providers Name Role Phone Unavailable Primary Care Provider Unavailable Encounter Details Date Type Department Care Team Description 02/25/2010 Office Visit-[facility] INTERFACE [facility] DEPT Provider, [facility] Nurs e Social History Tobacco Use Types Packs/Day Years Used Date Never Assessed Sex Assigned at Date Recorded Not on file documented as of this encounter Progress Notes Provider, [facility] Nurse - 02/25/2010 10:30 AM CDT Balloon Pilot: Ling Bello Status: Final Encounter: 25 Feb 2010 Type: Rooming Note Reason For Visit VIRGILIO MCCAULEY is a 74 year old male being seen in clinic for po rd repair ou. doing well tolerating gtts. Do you have any other appointments, tests or procedures within the [facility] system for this same day? No. Pain Eval Current history of pain associated with this visit is denied. Personal Hx Behavioral history: No tobacco use. Home environment: No secondhand tobacco smoke in home. Allergies No Known Drug Allergy. Current Meds Lisinopril 20 MG Tablet;TAKE 1 TABLET TWICE DAILY; RPT Norvasc 5 MG Tablet;TAKE 1 TABLET DAILY DIRECTED.; RPT METFORMIN ER 500MG TABS;one tab twice a day; RPT SIMVASTATIN;One pill at night before bed; RPT Pred Forte 1 % Suspension;INSTILL 1 DROP INTO LEFT EYE 2 TIMES DAILY.; RPT Atropine Sulfate 1 % Solution;INSTILL 1 DROP INTO AFFECTED EYE(S) 2 TIMES DAILY.; RPT AAA-MED RECONCILE;; RPT. Med list offered and patient declined. Signature Signed By: Ling Bello COT; 02/25/2010 10:36 AM CARBIDE TOOL DIE MAKER. documented in this encounter Plan of Treatment Upcoming Encounters Date Type Specialty Care Team Description 07/08/2022 Office Visit Ophthalmology Brennen Kathleen MD [address] [place] [phone] (Wo rk) documented as of this encounter Visit Diagnoses Not on filedocumented in this encounter
--- OUTSIDE RECORDS SUMMARY | 2022-07-02 13:39 | XMS_ITS | Encounter Summary ---
:1935 Author Organization [place] Address [facility] [place] [address] Care Team Providers Name Role Phone Unavailable Primary Care Provider Unavailable Reason for Visit Reason Comments Orders Encounter Details Date Type Department Care Team Description 02/06/2014 Orders Only Eye Clinic Neeru Kathleen Chorioretinal scar S/P Robert Burns MD retinal detachment Building [address] [place] [address] repair, left (Primary 9th Floor, Clinic 9A SARAH [address] Dx) [address] [place] [address] [place] [address] [place], [place] (Work) [phone] Social History Tobacco Use Types Packs/Day Years Used Date Current Every Day Smoker Sex Assigned at Date Recorded Not on file documented as of this encounter Plan of Treatment Upcoming Encounters Date Type Specialty Care Team Description 07/08/2022 Office Visit Ophthalmology Brennen Kathleen MD [address] [place] [address] [address] [place], [place] [address] (Wo rk) documented as of this encounter Visit Diagnoses Diagnosis 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
--- OUTSIDE RECORDS SUMMARY | 2022-07-02 13:39 | XMS_ITS | Encounter Summary ---
:1935 Author Organization [place] Address [facility] [place] [address] Care Team Providers Name Role Phone Unavailable Primary Care Provider Unavailable Encounter Details Date Type Department Care Team Description 07/10/2010 Office Visit-[facility] INTERFACE [facility] DEPT Provider, [facility] Nurs e Social History Tobacco Use Types Packs/Day Years Used Date Never Assessed Sex Assigned at Date Recorded Not on file documented as of this encounter Progress Notes Provider, [facility] Nurse - 07/10/2010 9:30 AM CDT Green Feed Attendant: Torito Jovel Status: Final Encounter: 10 Jul 2010 Type: Rooming Note Reason For Visit VIRGILIO WARREN is a 75 year old male being seen in clinic for 2 month f/u retina detachment repair both eyes Do you have any other appointments, tests or procedures within the [place] system for this same day? No. Pain Eval Current history of pain associated with this visit is denied. Personal Hx Behavioral history: No tobacco use. Home environment: No secondhand tobacco smoke in home. Allergies No Known Drug Allergy. Current Meds [ Med list offered and patient declined. ][ Med list printed and given to patient. ]. Lisinopril 20 MG Tablet;TAKE 1 TABLET TWICE DAILY; RPT Norvasc 5 MG Tablet;TAKE 1 TABLET DAILY DIRECTED.; RPT METFORMIN ER 500MG TABS;one tab twice a day; RPT SIMVASTATIN;One pill at night before bed; RPT Aspirin 81 MG Tablet;TAKE 1 TABLET DAILY.; RPT Centrum Silver TABS;TAKE 1 TABLET DIRECTED; RPT AAA-MED RECONCILE;; RPT. Med list offered and patient declined. Signature Signed By: Torito Jovel R.N.; 07/10/2010 9:45 AM MUSEUM SERVICE SCHEDULER. documented in this encounter Plan of Treatment Upcoming Encounters Date Type Specialty Care Team Description 07/08/2022 Office Visit Ophthalmology Brennen Kathleen MD [address] [place] [phone] (Wo rk) documented as of this encounter Visit Diagnoses Not on filedocumented in this encounter
--- OUTSIDE RECORDS SUMMARY | 2022-07-02 13:39 | XMS_ITS | Encounter Summary ---
:1935 Author Organization [place] Address [facility] [place] [address] Care Team Providers Name Role Phone Unavailable Primary Care Provider Unavailable Encounter Details Date Type Department Care Team Description 01/18/2010 Office Visit-[facility] INTERFACE [facility] DEPT Provider, [facility] Nurs e Social History Tobacco Use Types Packs/Day Years Used Date Never Assessed Sex Assigned at Date Recorded Not on file documented as of this encounter Progress Notes Provider, [facility] Nurse - 01/18/2010 3:00 PM CDT Learning Technologist: Kendra Hunter Status: Final Encounter: 18 Jan 2010 Type: Rooming Note Reason For Visit VIRGILIO MCCAULEY is a 74 year old male being seen in clinic for one day POP Retinal detachment repair Do you have any other appointments, tests or procedures within the [facility] system for this same day? No. Pain Eval Current history of pain associated with this visit is denied. Personal Hx Behavioral history: Tobacco use. Allergies No Known Drug Allergy. Current Meds Lisinopril 20 MG Tablet;TAKE 1 TABLET TWICE DAILY; RPT Norvasc 5 MG Tablet;TAKE 1 TABLET DAILY DIRECTED.; RPT METFORMIN ER 500MG TABS;one tab twice a day; RPT SIMVASTATIN;One pill at night before bed; RPT Aspirin 81 MG Tablet;TAKE 1 TABLET DAILY.; RPT AAA-MED RECONCILE;; RPT. Med list offered and patient declined. Signature Signed By: Kendra Hunter COA; 01/18/2010 2:29 PM AUTO SERVICE WRITER. documented in this encounter Plan of Treatment Upcoming Encounters Date Type Specialty Care Team Description 07/08/2022 Office Visit Ophthalmology Brennen Kathleen MD [address] [address] (Wo rk) documented as of this encounter Visit Diagnoses Not on filedocumented in this encounter
--- OUTSIDE RECORDS SUMMARY | 2022-07-02 13:39 | XMS_ITS | Encounter Summary ---
:1935 Author Organization [place] Address [facility] [place] [address] Care Team Providers Name Role Phone Unavailable Primary Care Provider Unavailable Encounter Details Date Type Department Care Team Description 12/16/2011 Office Visit-[facility] INTERFACE [facility] DEPT Unknown, Provider Social History Tobacco Use Types Packs/Day Years Used Date Never Assessed Sex Assigned at Date Recorded Not on file documented as of this encounter Progress Notes Unknown, Provider - 12/16/2011 10:30 AM CST Sub Master: Kendra Hunter Status: Final Encounter: 2011-12-16 10:30:00.000 Type: Rooming Note Reason For Visit VIRGILIO MCCAULEY is a 76 year old male being seen in clinic for annual eye exam and DFE post RD's Do you have any other appointments, tests or procedures within the [place] system for this same day? No. Pain [...] TABS;TAKE 1 TABLET DIRECTED; RPT AAA-MED RECONCILE;; RPT UNKNOWN TO PATIENT;thyroid pill; RPT. Med list offered and patient declined. Signature Signed By: Kendra Hunter [facility]; 12/16/2011 11:02 AM MONOMER RECOVERY OPERATOR. documented in this encounter Plan of Treatment Upcoming Encounters Date Type Specialty Care Team Description 07/08/2022 Office Visit Ophthalmology Brennen Kathleen MD [address] [place] [phone] (Wo rk) documented as of this encounter Visit Diagnoses Not on filedocumented in this encounter
--- OUTSIDE RECORDS SUMMARY | 2022-07-02 13:39 | XMS_ITS | Encounter Summary ---
:1935 Author Organization [place] Address [address] [facility] [place] [address] Care Team Providers Name Role Phone Vick Espinoza MD Primary Care Provider Cleopatra Velazquez MD Unavailable Reason for Visit Reason Onset Date Comments Refill Request 01/15/2016 Latanoprost 0.005% Encounter Details Date Type Department Care Team Description 01/15/2016 Refill [facility] Eye Louann Velazquez MD Refill Request Clinic - [address] [facility] (Latanoprost 0.005%) [place] [id number] [facility] [address] [facility] [address] [place] [address] Social History Tobacco Use Types Packs/Day Years Used Date Current Every Day Smoker Sex Assigned at Date Recorded Not on file documented as of this encounter Miscellaneous Notes Telephone Encounter - Caitlyn Sabillon RN - 01/15/2016 2:45 PM CDT Latanoprost 0.005% Last Written Prescription Date: 10-16-14 Last Fill Quantity: 1 btl, # refills: 11 Last Office Visit with G, P or [facility] prescribing provider: 12-11-15 Future Office visit: 05-05-16 Last Note: Neeru Kathleen MD at 12/11/2015 10:54 AM Status: Signed CC - h/o Retinal detachment both eyes s/p Repair HPI - No changes since YUE Rakesh Warren is a 78 year old year-old patient presenting for follow up of retinal detachmentboth eyes 2009. Past ocular history Pars plana vitrectomy (PPV)/SBP left eye 2009 SBP right eye 2009 Retinal Imaging (12/11/15): OCT right eye: Normal contour without SRF/IRF OCT left eye: Normal contour, mild central atrophy/intraretinal deposits without SRF/IRF ASSESSMENT/PLAN: 1. 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 [address] [place] [address] Cleopatra Velazquez MD MD Ophthalmology 10/10/15 [address] [facility] [address] [place], [place] [address] documented as of this encounter
--- OUTSIDE RECORDS SUMMARY | 2022-07-02 13:39 | XMS_ITS | Encounter Summary ---
:1935 Author Organization [place] Address [facility] [place] [address] Care Team Providers Name Role Phone Unavailable Primary Care Provider Unavailable Encounter Details Date Type Department Care Team Description 01/30/2010 Office Visit-[facility] INTERFACE [facility] DEPT Provider, [facility] Nurs e Social History Tobacco Use Types Packs/Day Years Used Date Never Assessed Sex Assigned at Date Recorded Not on file documented as of this encounter Progress Notes Provider, [facility] Nurse - 01/30/2010 10:30 AM CDT Box Covering Machine Operator: Torito Jovel Status: Final Encounter: 30 Jan 2010 Type: Rooming Note Reason For Visit VIRGILIO WARREN is a 74 year old male being seen in clinic for. Pain Eval Current history of pain associated [...] 81 MG Tablet;TAKE 1 TABLET DAILY.; RPT PrednisoLONE Acetate 1 % Suspension;INSTILL 1 DROP INTO RIGHT EYE 4 TIMES DAILY.; RPT Polymyxin B-Trimethoprim 18860-9.1 UNIT/ML-% Solution;INSTILL 1 DROP 4 TIMES DAILY Right Eye; RPT AAA-MED RECONCILE;; RPT. Med list offered and patient declined. Signature Signed By: Torito Jovel R.N.; 01/30/2010 10:55 AM POKER MANAGER. documented in this encounter Plan of Treatment Upcoming Encounters Date Type Specialty Care Team Description 07/08/2022 Office Visit Ophthalmology Brennen Kathleen MD [address] [place] [phone] (Wo rk) documented as of this encounter Visit Diagnoses Not on filedocumented in this encounter
--- OUTSIDE RECORDS SUMMARY | 2022-07-02 13:39 | XMS_ITS | Encounter Summary ---
:1935 Author Organization [place] Address [address] [facility] [place] [address] Care Team Providers Name Role Phone Unavailable Primary Care Provider Unavailable Encounter Details Date Type Department Care Team Description 02/08/2010 Office Visit-[facility] INTERFACE [facility] DEPT Provider, [facility] Nurs e Social History Tobacco Use Types Packs/Day Years Used Date Never Assessed Sex Assigned at Date Recorded Not on file documented as of this encounter Progress Notes Provider, [facility] Nurse - 02/08/2010 8:15 AM CDT Tenter Feeder: Radha Sahu Status: Final Encounter: 08 Feb 2010 Type: Rooming Note Reason For Visit VIRGILIO MCCAULEY is a 74 year old male being seen in clinic for post op day #1 for vitrectomy, MP, gas bubble and SB of left eye. Do you have any other appointments, tests or procedures within the [facility] system for this same day? No. Pain Eval Current history of pain associated with this visit is denied. Personal Hx Behavioral history: Smoking cigars. Allergies No Known Drug Allergy. Current Meds Lisinopril 20 MG Tablet;TAKE 1 TABLET TWICE DAILY; RPT Norvasc 5 MG Tablet;TAKE 1 TABLET DAILY DIRECTED.; RPT METFORMIN ER 500MG TABS;one tab twice a day; RPT SIMVASTATIN;One pill at night before bed; RPT AAA-MED RECONCILE;; RPT. Med list offered and patient declined. Signature Signed By: Radha Sahu ; 02/08/2010 8:30 AM POOL NURSE. documented in this encounter Plan of Treatment Upcoming Encounters Date Type Specialty Care Team Description 07/08/2022 Office Visit Ophthalmology Brennen Kathleen MD [address] [facility] [address] [place] [address] (Wo rk) documented as of this encounter Visit Diagnoses Not on filedocumented in this encounter
--- OUTSIDE RECORDS SUMMARY | 2022-07-02 13:39 | XMS_ITS | Encounter Summary ---
:1935 Author Organization [place] Address [facility] 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 9th Floor, Clinic 9A [address] [facility] [address] [facility] [address] [place], [place] [phone] Referral ID Status Reason Start Date Expiration Date Visits Requ ested Visits Authorized [id number] Closed 02/06/2014 08/05/2014 1 1 Reason for Visit Reason Comments Retinal Detachment Follow Up 1 year follow up Encounter Details Date Type Department Care Team Description 02/06/2014 Office Visit Eye Clinic Neeru Kathleen Chorioretinal scar S/P retin al detachment repair, left (Primary Dx); Robert Burns MD Pseudophakia of both eyes; Building [address] [place] [address] Posterior vitreous detachmen t of right eye; 9th Floor, Clinic 9A [place] 911 Glaucoma suspect of both eyes; 6 [place], [place] 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 Since his last visit he has not noticed any changes in his vision, no new flashes floaters or shadows in his vision. Retinal Imaging: OCT right eye: Normal without subretinal fluid OCT left eye: Normal without subretinal fluid A/P 1. Retinal detachment both eyes s/p repair 2009 -SBP right eye and Pars plana vitrectomy (PPV)/SBP left eye -retina flat both eyes -observe 2 Pseudophakia of both eyes -Stable, observe 3. Posterior vitreous detachment of right eye -Stable, observe -s/sx Retinal detachment D/w patient 4. Glaucoma suspect of both eyes -based on elevated intraocular pressure of 23, 27 -will refer for glaucoma evaluation 5. Diabetes mellitus II no retinopathy -Blood sugar/blood pressure control return to clinic: 1 year or sooner as needed I have confirmed the history, ROS, and exam findings by the farm technician, and modified by me where needed., I have confirmed and edited as necessary the relevant ophthalmic history, ROS, and the neuro exam findings as obtained by others. I have seen and examined this patient. and I personally viewed the image(s) and I agree with the interpretation as documented by the resident/fellow and edited by me.. documented in this encounter Plan of Treatment Upcoming Encounters Date Type Specialty Care Team Description 07/08/2022 Office Visit Ophthalmology Brennen Kathleen MD [address] [place] [phone] (Wo rk) Scheduled Referrals Name Type Priority Associated Diagnoses Order S chedule Glaucoma Referral Referral Routine Glaucoma suspect of bot h eyes Ordered: 02/06/2014 Glaucoma Referral Referral Routine Chorioretinal scar S/P Ordered: 02/06/2014 retinal detachment repair, left Pseudophakia of both eyes Posterior vitreous detachmen t of right eye Glaucoma suspect of both eyes Type 2 diabetes mellitus without retinopa thy (H) History of retinal detachmen t documented as of this encounter Procedures Procedure Name Priority Date/Time Associated Diagnosis Comme nts OCT RETINA SPECTRALIS Routine 02/06/2014 10:15 PM Chorioretina l scar S/P OU (BOTH EYE) CDT retinal detachment repair, left documented in this encounter Results OCT Retina Spectralis OU (both eyes) (02/06/2014 10:15 PM CDT) Neeru Kathleen MD OPHTHALMOLOGY documented in this encounter Visit Diagnoses Diagnosis 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
--- OUTSIDE RECORDS SUMMARY | 2022-07-02 13:39 | XMS_ITS | Encounter Summary ---
:1935 Author Organization [place] Address [facility] [place] [address] Care Team Providers Name Role Phone Unavailable Primary Care Provider Unavailable Encounter Details Date Type Department Care Team Description 04/24/2010 Office Visit-[facility] INTERFACE [facility] DEPT Provider, [facility] Nurs e Social History Tobacco Use Types Packs/Day Years Used Date Never Assessed Sex Assigned at Date Recorded Not on file documented as of this encounter Progress Notes Provider, [facility] Nurse - 04/24/2010 10:00 AM CDT Ecommerce Marketing Specialist: Luzma Peña Status: Final Encounter: 24 Apr 2010 Type: Rooming Note Reason For Visit VIRGILIO MCCAULEY is a 75 year old male being seen in clinic for 1 month fundus eval BE Do you have any other appointments, tests or procedures within the [facility] system for this same day? No. Pain Eval Current history of pain associated with this visit is denied. Personal Hx Behavioral history: Cigarette smoking upon awakening. Home environment: No secondhand tobacco smoke in home. Allergies No Known Drug Allergy. Current Meds Med list offered and patient declined. Lisinopril 20 MG Tablet;TAKE 1 TABLET TWICE DAILY; RPT Norvasc 5 MG Tablet;TAKE 1 TABLET DAILY DIRECTED.; RPT METFORMIN ER 500MG TABS;one tab twice a day; RPT SIMVASTATIN;One pill at night before bed; RPT Aspirin 81 MG Tablet;TAKE 1 TABLET DAILY.; RPT Centrum Silver TABS;TAKE 1 TABLET DIRECTED; RPT AAA-MED RECONCILE;; RPT. Signature Signed By: Luzma Peña COA; 04/24/2010 10:24 AM BELL HOLE DIGGER. documented in this encounter Plan of Treatment Upcoming Encounters Date Type Specialty Care Team Description 07/08/2022 Office Visit Ophthalmology Koozekanani, Brennen a Grant, MD [address] [place] [phone] (Wo rk) documented as of this encounter Visit Diagnoses Not on filedocumented in this encounter
--- OUTSIDE RECORDS SUMMARY | 2022-07-02 13:39 | XMS_ITS | Encounter Summary ---
:1935 Author Organization [place] Address [facility], [id number] [facility] [place] [address] Care Team Providers Name Role Phone Unavailable Primary Care Provider Unavailable Encounter Details Date Type Department Care Team Description 01/30/2010 Office Visit-[facility] Eye Varun Kathleen ra Clinic - MD Robert Marcelino [place] [id number] [facility] [address] [place] [address] [facility] [address] [place] [address] Social History Tobacco Use Types Packs/Day Years Used Date Never Assessed Sex Assigned at Date Recorded Not on file documented as of this encounter Progress Notes Neeru Kathleen - 01/30/2010 10:30 AM CDT Staff [employer] Information Center Officer: Neeru Kathleen Status: Final - Signature Encounter: 30 Jan 2010 Type: EYE Letter January 30, 2010 RE: Rakesh Warren MR#: [id number] : 1935 Mr. Warren came to the Retina Clinic today. He is a 74-year-old gentleman who has had bilateral retinal detachments. He is now approximately 2 weeks out from scleral buckle repair of the retinal detachment in his right eye. He is doing well and the vision is starting to approach his prior baseline. He is currently taking Pred Forte 4 times daily in that right eye. OCULAR EXAMINATION: Today on examination, his acuity was 20/50 in the right eye and 20/500 in the left eye. Pressures were 15 on the right and 12 on the left. Pupils were normal. ANTERIOR SEGMENT EXAMINATION: RIGHT EYE: Anterior segment examination of the right eye shows a mild amount of residual conjunctival injection and chemosis with a small amount of inferonasal conjunctival hooding of the cornea. The cornea was otherwise clear and the anterior chamber was deep and quiet. The iris is normal and a posterior chamber intraocular lens was visible. DILATED FUNDUSCOPIC EXAMINATION: RIGHT EYE: Dilated fundoscopy showed the vitreous to be clear. The optic nerve was pink and flat. The scleral buckle was visible with the encircling band and the inferior tire. There was a small amount of residual subretinal fluid just posterior to the buckle, but the fluid was overall much less than before. There was a demarcation line visible just inferior to the inferior arcade. CLINICAL IMPRESSION: 1) Retinal detachment, right eye, status post repair x 12 days with scleral buckle and cryotherapy. 2) Retinal detachment, left eye. PLAN: As for the patient's right eye, I feel that the retinal detachment is improving and has been repaired with the scleral buckle. I advised him to start tapering his Pred Forte by one drop a day perweek until he discontinues it. As for the patient's left eye, we scheduled surgical repair for next week. He will have a buckle and vitrectomy with a gas exchange. He understands that he must refrain from air travel while he has a gas bubble and that he may need to position. He was advised that the scleral buckle may cause strabismus or change his refraction. Of course he was advised as to the possibility of re-detachment or failure to achieve the desired results with surgery as well as potential for blindness, , and the possibility of needing additional surgeries after the initial surgery. [place] understood the possibility of permanent vision loss in the left eye due to his retinal detachment that would not improve after the detachment was repaired. He says he understood this and elected to proceed. Neeru Kathleen MD, PhD Events Solutions Consultant Department of Ophthalmology [place]GET:[place] Job Number: [id number] Electronically signed by:Neeru Kathleen MD,PhD Feb 01 2010 11:17AM ROLLER PRINTING SUPERVISOR documented in this encounter Plan of Treatment Upcoming Encounters Date Type Specialty Care Team Description 07/08/2022 Office Visit Ophthalmology Brennen Kathleen MD [address] [place] [phone] (Wo rk) documented as of this encounter Visit Diagnoses Not on filedocumented in this encounter
--- OUTSIDE RECORDS SUMMARY | 2022-07-02 13:39 | XMS_ITS | Encounter Summary ---
:1935 Author Organization [place] Address [facility] [place] [address] Care Team Providers Name Role Phone Unavailable Primary Care Provider Unavailable Encounter Details Date Type Department Care Team Description 01/23/2010 Office Visit-[facility] INTERFACE [facility] DEPT Unknown, Provider Social History Tobacco Use Types Packs/Day Years Used Date Never Assessed Sex Assigned at Date Recorded Not on file documented as of this encounter Progress Notes Unknown, Provider - 01/23/2010 10:00 AM CDT Global Consumer Sector Vice President: Latrice Camacho Status: Final Encounter: 23 Jan 2010 Type: Rooming Note Reason For Visit VIRGILIO WARREN is a 74 year old male being seen in clinic for one week post op Do you have any other appointments, tests or procedures within the [place] system for this same day? No. Pain Eval Current history of pain associated with this visit is denied. Allergies No Known Drug Allergy. Current Meds Lisinopril 20 MG Tablet;TAKE 1 TABLET TWICE DAILY; RPT Norvasc 5 MG Tablet;TAKE 1 TABLET DAILY DIRECTED.; RPT METFORMIN ER 500MG TABS;one tab twice a day; RPT SIMVASTATIN;One pill at night before bed; RPT Aspirin 81 MG Tablet;TAKE 1 TABLET DAILY.; RPT AAA-MED RECONCILE;; RPT PrednisoLONE Acetate 1 % Suspension;INSTILL 1 DROP INTO RIGHT EYE 4 TIMES DAILY.; RPT Polymyxin B-Trimethoprim 30001-9.1 UNIT/ML-% Solution;INSTILL 1 DROP 4 TIMES DAILY Right Eye; RPT. Signature Signed By: Latrice Camacho COA; 01/23/2010 10:20 AM FLIGHT AGENT. documented in this encounter Plan of Treatment Upcoming Encounters Date Type Specialty Care Team Description 07/08/2022 Office Visit Ophthalmology Brennen Kathleen MD [address] [place] [phone] (Wo rk) documented as of this encounter Visit Diagnoses Not on filedocumented in this encounter
--- OUTSIDE RECORDS SUMMARY | 2022-07-02 13:39 | XMS_ITS | Encounter Summary ---
:1935 Author Organization [place] Address [facility] 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 Followed by diabetic retinopathy [place] for retinal detachment left eye s/p Pars plana vitrectomy/SB left eye and SB right eye 2009. 1. Glaucoma suspect Ocular hypertension documented on 23, 27 mmHg with better pressure today Disc photos and OCT today as baseline: Normal OCT right eye and fairly normal left eye (borderline ST) First visual field Same scatter both eyes but fairly normal 2. Retinal detachment both eyes s/p repair 2010 -SBP right eye and Pars plana vitrectomy (PPV)/SBP left eye -retina flat both eyes -observe 3. Pseudophakia of both eyes -Stable, observe 4. Posterior vitreous detachment of right eye -Stable, observe -s/sx Retinal detachment D/w patient 5. Diabetes mellitus II no retinopathy -Blood sugar/blood pressure control [facility] and [facility] RV 6 months with visual field (GTOP) Attending Physician Attestation: I have seen and [...] with this note. - Cleopatra Velazquez MD 11:40 AM 03/20/2014 documented in this encounter Plan of Treatment Upcoming Encounters Date Type Specialty Care Team Description 07/08/2022 Office Visit Ophthalmology Brennen Kathleen MD [address] [place] [phone] (Wo rk) documented as of this encounter Procedures Procedure Name Priority Date/Time Associated Diagnosis Comme nts OCT OPTIC NERVE RNFL Routine 03/20/2014 3:51 PM Ocular hyperte nsion, SPECTRALIS OU (BOTH CDT bilateral [365.04] EYES) FUNDUS PHOTOS OU (BOTH Routine 03/20/2014 3:50 PM Ocular hyper tension, EYES) CDT bilateral [365.04] HC GONIOSCOPY Routine 03/20/2014 11:40 AM Ocular hypertension, CDT bilateral [365.04] VISUAL FIELD 24-2 OU Routine 03/20/2014 11:21 AM Open angle wi th (BOTH EYES) CDT borderline findings, low risk, unspecified laterality documented in this encounter Results OCT Optic Nerve RNFL Spectralis OU (both eyes) (03/20/2014 3:51 PM CDT) Cleopatra Velazquez MD OPHTHALMOLOGY Fundus Photos OU (both eyes) (03/20/2014 3:50 PM CDT) Cleopatra Velazquez MD OPHTHALMOLOGY Visual Field 24-2 OU (both eyes) (03/20/2014 11:21 AM CDT) Cleopatra Velazquez MD OPHTHALMOLOGY documented in this encounter Visit Diagnoses Diagnosis Open angle with borderline findings, low risk, unspecified laterality - Primary Ocular hypertension, 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
--- OUTSIDE RECORDS SUMMARY | 2022-07-02 13:39 | XMS_ITS | Encounter Summary ---
:1935 Author Organization [place] Address [address] [place] [address] Care Team Providers Name Role Phone Vick Espinoza MD Primary Care Provider Cleopatra Velazquez MD Unavailable Reason for Visit Reason Comments Retinal Detachment Follow Up Yrly check Encounter Details Date Type Department Care Team Description 12/11/2015 Office Visit [facility] Eye Neeru Kathleen ype 2 diabetes mellitus without retinopathy (H); Clinic - Ronald Burns MD H/O detached retina repair; Robert Wangensteen [address] [facility] P seudophakia; [place] [address] Glaucoma, open angle, indeterminate stag e [365.10, 365.74] [address] [place], [place] 9 Hi Clin 9[address] [address] [place], [place] [phone] (Work) [phone] Social History Tobacco Use Types Packs/Day Years Used Date Current Every Day Smoker Sex Assigned at Date Recorded Not on file documented as of this encounter Progress Notes Neeru Kathleen MD - 12/11/2015 10:54 AM CST CC - h/o Retinal detachment both eyes [...] or sooner as needed, OCT both eyes I have confirmed the history, ROS, and exam findings by the install and repair technician, and modified by me where needed., I have confirmed and edited as necessary the relevant ophthalmic history, ROS, and the neuro exam findings as obtained by others. I have seen and examined this patient. and I personally viewed the image(s) and I agree with the interpretation as documented by the resident/fellow and edited by me.. LLURGICAL OR MATERIALS TECHNICIAN documented in this encounter Nursing Notes Darshana Burgos - 12/11/2015 10:07 AM CST Chief Complaints and History of Present Illnesses Patient presents with ??? Retinal Detachment Follow Up Yrly check HPI Affected eye(s): Both Symptoms: Duration: 1 year Frequency: Constant Do you have eye pain now?: No Comments: States va is the same since last visit Few floaters No flashes Darshana Burgos COT 10:07 AM December 11, 2015 LLURGICAL OR MATERIALS TECHNICIAN documented in this encounter Plan of Treatment Upcoming Encounters Date Type Specialty Care Team Description 07/08/2022 Office Visit Ophthalmology Brennen Kathleen MD [address] [place] [phone] (Wo rk) documented as of this encounter Procedures Procedure Name Priority Date/Time Associated Diagnosis Comme [facility] OCT RETINA SPECTRALIS Routine 12/11/2015 11:47 AM Type 2 diabe milton mellitus OU (BOTH EYE) METALLURGICAL OR MATERIALS TECHNICIAN without retinopa thy (H) H/O detached retina repair Pseudophakia Glaucoma, open angle, indeterminate stage [365.10, 365.74] documented in this encounter Results OCT Retina Spectralis OU (both eyes) (02/03/2017 11:17 AM CDT) Neeru Hayden MD - 02/03/2017 11:53 AM CDT Performed by: OSCAR . Patient cooperation: Reliable . Right Eye [...] OPHTHALMOLOGY OCT Retina Spectralis OU (both eyes) (12/11/2015 11:47 AM METALLURGICAL OR MATERIALS TECHNICIAN) Neeru Kathleen MD OPHTHALMOLOGY documented in this [...] stag e [365.10, 365.74] Open-angle glaucoma, unspecified documented in this encounter Care Teams Log Chipper Relationship Specialty Start Date End Date Vick Espinoza MD PCP - General Family Practice 09/15/14 [facility] [address] [place] [address] Cleopatra Velazquez MD MD [facility] 10/10/[address] [place] [address] [phone] documented as of this encounter
--- OUTSIDE RECORDS SUMMARY | 2022-07-02 13:39 | XMS_ITS | Encounter Summary ---
:1935 Author Organization [place] Address [facility] [place] [address] Care Team Providers Name Role Phone Unavailable Primary Care Provider Unavailable Encounter Details Date Type Department Care Team Description 01/30/2010 Office Visit-[facility] INTERFACE [facility] DEPT Unknown, Provider Social History Tobacco Use Types Packs/Day Years Used Date Never Assessed Sex Assigned at Date Recorded Not on file documented as of this encounter Progress Notes Unknown, Provider - 01/30/2010 10:30 AM CDT Chemical Machine Tender: Gali Samuel Status: Final Encounter: 30 Jan 2010 Type: Teaching Flowsheet Teaching Flowsheet Relevant Diagnosis: RETINAL DETACHMENT Teaching Topic:SURGERY Person(s) involved in teaching: Patient Other Motivation Level: Asks Questions: Yes Eager to Learn: Yes Cooperative: Yes Receptive (willing/able to accept information): Yes Patient Family demonstrates understanding of the following: Reason for the appointment, diagnosis and treatment plan: Yes Knowledge of proper use of medications and conditions for which they are ordered (with special attention to potential side effects or drug interactions): Yes Which situations necessitate calling provider and whom to contact: Yes Comments: PT DOES NOT NEED ANOTHER H&P. Proper use and care of (medical equip, care aids, etc.): Yes Nutritional needs and diet plan: Yes Pain management techniques: Yes Patient instructed on hand hygiene: NA How and/when to access community resources: NA Infection Prevention: demonstrates understanding of the following: Surgical procedure site care taught Signs and symptoms of infection taught Wound care taught Central venous catheter care taught Instructional Materials Used/Given: SURGERY PACKET GIVEN TO PATIENT. Signature Signed By: Gali Samuel ; 01/31/2010 10:47 AM SOLAR POWER INSTALLER. documented in this encounter Plan of Treatment Upcoming Encounters Date Type Specialty Care Team Description 07/08/2022 Office Visit Ophthalmology Brennen Kathleen MD [address] [place] [phone] (Wo rk) documented as of this encounter Visit Diagnoses Not on filedocumented in this encounter
--- OUTSIDE RECORDS SUMMARY | 2022-07-02 13:39 | XMS_ITS | Encounter Summary ---
:1935 Author Organization [place] Address [address] [place] [address] Care Team Providers Name Role Phone Vick Espinoza MD Primary Care Provider Cleopatra Velazquez MD Unavailable Neeru Kathleen MD Unavailable [phone] Neeru Kathleen MD Unavailable [phone] Cleopatra Velazquez MD Unavailable Neeru Kathleen MD Unavailable [phone] Encounter Details Date Type Department Care Team Description 01/10/2013 Office Visit-[facility] INTERFACE [facility] DEPT Unknown, Provider Social History Tobacco Use Types Packs/Day Years Used Date Never Assessed Sex Assigned at Date Recorded Not on file documented as of this encounter Progress Notes Unknown, Provider - 01/10/2013 10:30 AM CDT Powertrain Design Engineer: Shantel Boothe Status: Final Encounter: 2013-01-10 10:30:00.000 Type: Rooming Note Reason For Visit VIRGILIO MCCAULEY is a 77 year old male being seen in clinic for fu S/p Yag LE Do you have any other appointments, tests or procedures within the [facility] system for this same day? No. Pain Eval Current history of pain associated with this visit is denied. Personal Hx Behavioral history: Tobacco use. Home environment: Secondhand tobacco smoke in home. Allergies No Known Drug Allergy. Current Meds Med list offered and patient declined. UNKNOWN TO PATIENT;thyroid pill; RPT Centrum Silver TABS;TAKE 1 TABLET DIRECTED; RPT Aspirin 81 MG Tablet;TAKE 1 TABLET DAILY.; RPT SIMVASTATIN;One pill at night before bed; RPT METFORMIN ER 500MG TABS;one tab twice a day; RPT Norvasc 5 MG Tablet;TAKE 1 TABLET DAILY DIRECTED.; RPT Lisinopril 20 MG Tablet;TAKE 1 TABLET TWICE DAILY; RPT AAA-MED RECONCILE;; RPT. Signature Signed By: Shantel Boothe ; 01/10/2013 10:40 AM GEOTHERMAL SYSTEM INSTALLER. documented in this encounter Plan of Treatment Upcoming Encounters Date Type Specialty Care Team Description 07/08/2022 Office Visit Ophthalmology Brennen Kathleen MD [address] [place] [address] [phone] (Wo rk) documented as of this encounter Visit Diagnoses Not on filedocumented in this encounter Care Teams Golf Superintendent Relationship Specialty Start Date End Date Vick Espinoza MD PCP - General Family Practice 09/15/14 [facility] [address] [place] [address] Cleopatra Velazquez MD MD Ophthalmology 10/10/[address] [place] [address] [phone] Neeru Kathleen MD Ophthalmology 12/14/17 [facility] [address] [place] [address] [phone] Neeru Kathleen Assigned Surgical Provider 08/03/20 08/25/20 [facility] [address] [place] [address] [phone] Cleopatra Velazquez MD Assigned Surgical Provider 08/26/[address] [phone] Neeru Kathleen Assigned Surgical Provider 10/21/20 [facility] [address] [place] [address] documented as of this encounter
--- OUTSIDE RECORDS SUMMARY | 2022-07-02 13:39 | XMS_ITS | Encounter Summary ---
:1935 Author Organization [place] Address [address] 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 Followed by diabetic retinopathy Hever for retinal detachment left eye s/p Pars plana vitrectomy/SB left eye and SB right eye 2009. 1. 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 Retinal detachment both eyes s/p repair 2010 -SBP right eye and Pars plana vitrectomy (PPV)/SBP left eye -retina flat both eyes -observe 3. Pseudophakia of both eyes -Stable, observe 4. Posterior vitreous detachment of right eye -Stable, observe -s/sx Retinal detachment D/w patient 5. Diabetes mellitus II no retinopathy -Blood sugar/blood pressure control [place] [facility] with [employer] also Continue latanoprost both eyes at bedtime - goal lower 20's RV 6 months for OCT retinal nerve fiber layer and dilated exam Attending Physician Attestation: Complete documentation of historical [...] patient and family. - Cleopatra Velazquez MD 12:05 PM 05/05/2016 documented in this encounter Nursing Notes Kendra Hunter COA - 05/05/2016 11:15 AM CDT Chief Complaints and History of Present Illnesses Patient presents with ??? Glaucoma Follow Up HPI Symptoms: No decreased vision No floaters No flashes No Dryness Do you have eye pain now?: No Comments: Annual glaucoma suspect exam. The patient states there are no changes since his last visit. The last dose of drops was last night at 10:00PM in both eyes. MESSI Silva 11:14 AM 05/05/2016 documented in this encounter Plan of Treatment Upcoming Encounters Date Type Specialty Care Team Description 07/08/2022 Office Visit Ophthalmology Brennen Kathleen MD [address] [place] [address] [place], [place] [phone] (Wo rk) documented as of this encounter Procedures Procedure Name Priority Date/Time Associated Diagnosis Comme nts OVF 24-2 DYNAMIC OU Routine 05/05/2016 12:03 PM Ocular hyperte nsion, Results for this CDT bilateral [365.04] procedure are in the results section. documented in this encounter Results OCT Optic Nerve RNFL Spectralis OU (both eyes) (11/17/2016 1:43 PM FRETTED INSTRUMENT INSPECTOR) Narrative Cleopatra Velazquez MD - 11/17/2016 1:44 P M FRETTED INSTRUMENT INSPECTOR Right Eye Test Findings: Normal . Interval: Same . Left Eye Test Findings Free Text: Borderline ST . Interval: Worse . Cleopatra Velazquez MD OPHTHALMOLOGY OVF 24-2 Dynamic OU (05/05/2016 12:03 PM CDT) Narrative Cleopatra Velazquez MD - 05/05/2016 12:04 PM CDT Ok fix OU. Patient was looking around a lot after reminders to stay fixated on the target. . Right Eye Reliability of the test: Poor . Findings: Central scotoma, Nasal step . Interval: Same . Left Eye Reliability of the test: Poor . Findings: Nonspecific defect . Interval: Same . 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
--- OUTSIDE RECORDS SUMMARY | 2022-07-02 13:39 | XMS_ITS | Encounter Summary ---
:1935 Author Organization [place] Address [facility] [place] [address] Care Team Providers Name Role Phone Unavailable Primary Care Provider Unavailable Encounter Details Date Type Department Care Team Description 02/13/2010 Office Visit-[facility] INTERFACE [facility] DEPT Provider, [facility] Nurs e Social History Tobacco Use Types Packs/Day Years Used Date Never Assessed Sex Assigned at Date Recorded Not on file documented as of this encounter Progress Notes Provider, [facility] Nurse - 02/13/2010 9:30 AM CDT Process Safety Management Engineer: Torito Jovel Status: Final Encounter: 13 Feb 2010 Type: Rooming Note Reason For Visit VIRGILIO WARREN is a 74 year old male being seen in clinic for 1 week post-op membrane peel left eye Do you have any other appointments, tests or procedures within the [place] system for this same day? No. Pain [...] INTO AFFECTED EYE(S) 2 TIMES DAILY.; RPT Polymyxin B-Trimethoprim SOLN;INSTILL 1 DROP IN AFFECTED EYE(S) EVERY 4-6 HOURS.; RPT AAA-MED RECONCILE;; RPT. Med list offered and patient declined. Signature Signed By: Torito Jovel R.N.; 02/13/2010 9:47 AM MERCHANDISE PICKUP/RECEIVING ASSOCIATE. documented in this encounter Plan of Treatment Upcoming Encounters Date Type Specialty Care Team Description 07/08/2022 Office Visit Ophthalmology Brennen Kathleen MD [address] [place] [phone] (Wo rk) documented as of this encounter Visit Diagnoses Not on filedocumented in this encounter
--- OUTSIDE RECORDS SUMMARY | 2022-07-02 13:39 | XMS_ITS | Encounter Summary ---
:1935 Author Organization [place] Address [facility] [place] [address] Care Team Providers Name Role Phone Unavailable Primary Care Provider Unavailable Encounter Details Date Type Department Care Team Description 03/18/2010 Office Visit-[facility] INTERFACE [facility] DEPT Provider, [facility] Nurs e Social History Tobacco Use Types Packs/Day Years Used Date Never Assessed Sex Assigned at Date Recorded Not on file documented as of this encounter Progress Notes Provider, [facility] Nurse - 03/18/2010 1:30 PM CDT [employer] Social Science Teacher: Erica Jarrell Status: Final Encounter: 18 Mar 2010 Type: Rooming Note Reason For Visit VIRGILIO MCCAULEY is a 74 year old male being seen in clinic for 3 wk fu dilated fundus po in the le Do you have any other appointments, tests or procedures within the [place] system for this same day? No. Pain [...] at night before bed; RPT AAA-MED RECONCILE;; RPT PrednisoLONE Acetate 1 % Suspension;INSTILL 1 DROP INTO LEFT EYE 2 TIMES DAILY.; RPT. Med list offered and patient declined. Signature Signed By: Erica Jarrell ; 03/18/2010 1:57 PM FOREMAN/PILE DRIVING AND ERECTION. documented in this encounter Plan of Treatment Upcoming Encounters Date Type Specialty Care Team Description 07/08/2022 Office Visit Ophthalmology Brennen Kathleen MD [address] [place] [phone] (Wo rk) documented as of this encounter Visit Diagnoses Not on filedocumented in this encounter
--- OUTSIDE RECORDS SUMMARY | 2022-07-02 13:39 | XMS_ITS | Encounter Summary ---
:1935 Author Organization [place] Address [address] [facility] [place] 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, left Encounter Details Date Type Department Care Team Description 01/23/2015 Office Visit [facility] Eye Neeru Kathleen ype 2 diabetes mellitus without retinopathy (H) (Primary Dx); Clinic - Ronald Burns MD H/O detached retina repair; Robert Shafferensconcetta [address] [facility] seudophakia; [facility] 91 Glaucoma, open angle, indeterminate stag e [365.10, 365.74] [address] [place], [place] 9th Fl Clin 9A [address] [place], [place] [phone] (Work) [phone] Social History Tobacco Use Types Packs/Day Years Used Date Current Every Day Smoker Sex Assigned at Date Recorded Not on file documented as of this encounter Progress Notes Neeru Kathleen MD - 01/23/2015 11:01 AM CDT CC - h/o Retinal detachment both eyes s/p Repair HPI - No changes since YUE Rakesh Warren is a 78 year old year-old patient presenting for follow up of retinal detachmentboth eyes 2009. Past ocular history Pars plana vitrectomy (PPV)/SBP left eye 2010 SBP right eye 2009 Retinal Imaging (03/2014): OCT right eye: Normal without subretinal fluid OCT left eye: Normal without subretinal fluid ASSESSMENT/PLAN: 1. Retinal detachment both eyes s/p [...] both eyes - Good response with Latanoprost with IOP 13 and 15 today (previously 26, 33) 5. Diabetes mellitus II no retinopathy -Blood sugar/blood pressure control return to clinic: 1 year or sooner as needed, OCT both eyes I have confirmed the history, ROS, and exam findings by the lead quality control technician, and modified by me where needed., I have confirmed and edited as necessary the relevant ophthalmic history, ROS, and the neuro exam findings as obtained by others. I have seen and examined this patient. and I personally viewed the image(s) and I agree with the interpretation as documented by the resident/fellow and edited by me.. documented in this encounter Nursing Notes Nereyda Caraballo - 01/23/2015 9:50 AM CDT Chief Complaints and History of Present Illnesses Patient presents with ??? Follow Up For Chorioretinal scar S/P retinal detachment repair, left HPI Affected eye(s): Both Symptoms: Duration: 1 year Frequency: Constant Do you have eye pain now?: No Comments: Doing well, no change in VA BE. No c/o comfort BE. Occasional floaters BE. Nereyda Caraballo COT 9:50 AM January 23, 2015 documented in this encounter Plan of Treatment Upcoming Encounters Date Type Specialty Care Team Description 07/08/2022 Office Visit Ophthalmology Brennen Kathleen MD [address] [place] [phone] (Wo rk) documented as of this encounter Results OCT Retina Spectralis OU (both eyes) (12/11/2015 11:47 AM INSECTICIDE SUPERVISOR) Neeru Kathleen MD OPHTHALMOLOGY documented in this [...] unspecified documented in this encounter Care Teams Admissions Rn Relationship Specialty Start Date End Date Vick Espinoza MD PCP - General Family Practice 09/15/[address] [facility] [address] [place] [address] documented as of this encounter
--- OUTSIDE RECORDS SUMMARY | 2022-07-02 13:39 | XMS_ITS | Encounter Summary ---
:1935 Author Organization [place] Address [address] 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 Followed by diabetic retinopathy He[facility] for retinal detachment left eye s/p Pars plana vitrectomy/SB left eye and SB right eye 2009. 1. Glaucoma suspect Ocular hypertension with intraocular pressure mid 20's right eye and low 30's left eye last visit Normal OCT 2. Retinal detachment both eyes s/p repair 2010 -SBP right eye and Pars plana vitrectomy (PPV)/SBP left eye -retina flat both eyes -observe 3. Pseudophakia of both eyes -Stable, observe 4. Posterior vitreous detachment of right eye -Stable, observe -s/sx Retinal detachment D/w patient 5. Diabetes mellitus II no retinopathy -Blood sugar/blood pressure control Madi Grimes and aubrey with [facility] Gonz[facility]les also Continue latanoprost both eyes at bedtime - goal lower 20's RV 6 months for repeat 24-2 visual field Attending Physician Attestation: I have seen and [...] with this note. - Cleopatra Velazquez MD 2:14 PM 04/23/2015 documented in this encounter Nursing Notes Kendra Hunter COA - 04/23/2015 1:07 PM CDT Chief Complaints and History of Present Illnesses Patient presents with ??? Glaucoma Follow Up HPI Last Eye Exam: 10/16/14 Symptoms: Do you have eye pain now?: No Comments: Pt states he has no changes since last visit. MESSI Silva 1:06 PM 04/23/2015 documented in this encounter Plan of Treatment Upcoming Encounters Date Type Specialty Care Team Description 07/08/2022 Office Visit Ophthalmology Brennen Kathleen MD [address] [place] [phone] (Wo rk) documented as of this encounter Procedures Procedure Name Priority Date/Time Associated Diagnosis Comme nts OCT OPTIC NERVE RNFL Routine 04/23/2015 2:15 PM CDT Ocular hyp ertension, SPECTRALIS OU (BOTH bilateral [365.04] - EYES) Both Eyes documented in this encounter Results OVF 24-2 Dynamic OU (05/05/2016 12:03 PM [...] Interval: Same . 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
--- OUTSIDE RECORDS SUMMARY | 2022-07-02 13:40 | XMS_ITS | Encounter Summary ---
:1935 Author Organization [place] Address [facility] [place] [address] Care Team Providers Name Role Phone Unavailable Primary Care Provider Unavailable Encounter Details Date Type Department Care Team Description 08/25/2007 Office Visit-[facility] INTERFACE [facility] DEPT Provider, [facility] Nurs e Social History Tobacco Use Types Packs/Day Years Used Date Never Assessed Sex Assigned at Date Recorded Not on file documented as of this encounter Progress Notes Provider, [facility] Nurse - 08/25/2007 1:00 PM CST Concept Artist: Heriberto Azalea Status: Final Encounter: 25 Aug 2007 Type: Rooming Note Reason For Visit VIRGILIO MCCAULEY is a 74 year old male being seen in clinic for f/u Do you have any other appointments, tests or procedures within the [place] system for this same day? No. Pain [...] offered and patient declined. Signature Signed By: Azalea Louis ; 01/07/2010 12:20 PM LEAD ELECTRICAL CONTROLS ENGINEER. documented in this encounter Plan of Treatment Upcoming Encounters Date Type Specialty Care Team Description 07/08/2022 Office Visit Ophthalmology Brennen Kathleen MD [address] [facility] [address] [place], [place] [id number] (Wo rk) documented as of this encounter Visit Diagnoses Not on filedocumented in this encounter
--- OUTSIDE RECORDS SUMMARY | 2022-07-02 13:40 | XMS_ITS | Encounter Summary ---
:1935 Author Organization [place] Address [address] [facility] [place] [address] Care Team Providers Name Role Phone Unavailable Primary Care Provider Unavailable Encounter Details Date Type Department Care Team Description 01/07/2010 Office Visit-[facility] Eye [facility] - MD Robert Marcelino [place] [id number] [facility] [address] [place] [address] [facility] Clin [address] [place] [address] Social History Tobacco Use Types Packs/Day Years Used Date Never Assessed Sex Assigned at Date Recorded Not on file documented as of this encounter Progress Notes Neeru Kathleen - 01/07/2010 2:00 PM CDT Dictaphone Technician: EzekiellyndaNeeru [place] Status: Final - Signature Encounter: 07 Jan 2010 Type: EYE Letter January 07, 2010 Tacos Kaufman MD [facility] 493 RE: Rakesh Warren MR#: [id number] : 1935 Dear Don: I saw your patient, Rakesh Warren, in consultation at your request for a retinal detachment in his left eye. As you know, he is a 74-year-old gentleman who noticed a superior visual field defect inhis left eye approximately 3 months ago. He says that the visual field defect since then became darker and went through his central vision approximately 1 month ago. At that point, his visual acuity decreased significantly. He denied any recent trauma. He has had cataract surgery in both eyes: 2003 for the right eye and 2006 for the left eye. Past Medical History: His past medical history is significant for diabetes and hypertension. He has had tonsil surgery and his parotid gland removed for a benign cyst. He has had surgeries on his arms.Social History: He drinks a few times a week and smokes cigars. 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 Review of Systems: An 11-point review of systems was negative. OCULAR EXAMINATION: On examination today, his acuity best corrected was 20/20 in the right eye and 20/300 in the left eye. Pressures were 30 on the right and 24 on the left. Pupils showed a significantafferent defect in the left eye. Visual gilliland in the right eye were full and in the left eye showeda superior visual field defect. Motility was normal. ANTERIOR SEGMENT EXAMINATION: Anterior segment examination in both eyes showed no inflammation. There were posterior chamber intraocular lenses bilaterally. There was significant pigment cell in the anterior vitreous of both eyes. DILATED FUNDUSCOPIC EXAMINATION: RIGHT EYE: Dilated fundoscopy showed a posterior vitreous detachment. The optic nerve was pink and healthy. There was an inferior retinal detachment extending clockwisefrom 4 o'clock to 7 o'clock. There were two small atrophic holes seen inferiorly. However, it is difficult to determine if these were the cause of the retinal detachment. The detachment extended posteriorly to the equator. There was no demarcation line seen, but the detachment has a somewhat atrophic appearance. LEFT EYE: In the left eye, there was a near total detachment extending clockwise from 2 o'clock to 10 o'clock. Inferiorly in the periphery, there were multiple small flap tears seen. In parti cular, there was a definite flap tear at 4 o'clock and one at 6 o'clock. There were a few dot blot hemorrhages also seen in the periphery. No PVR or subretinal bands were seen. 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 2) Inferior retinal detachment, right eye. 3) Ocular hypertension. PLAN: I recommend repairing both these patient's eyes surgically. For the right eye, I would recommend a scleral buckle with cryotherapy. I would do this eye first to stabilize and hopefully cure his retinal detachment. Afterwards, I will plan surgery in the left eye. I feel a combined vitrectomy and buckle with gas fixation is indicated. I discussed the risks, benefits, and alternatives with the patient, including failure to achieve the desired results, loss of vision, and loss of the eye. I explained that additional surgeries might be required as well as the fact that the scleral buckle could change his eyeglass prescription and potentially cause diplopia. The patient understood these and signedthe informed consent. I am unsure as to the cause of his ocular hypertension, particularly given hisretinal detachments. 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 Thank you for allowing me to be involved in the care of this delightful patient. If you have any questions or concerns, please do not hesitate to contact me. Sincerely, Neeru Kathleen MD, PhD Glass Ribbon Machine Operator Department of Ophthalmology DK:ashley Job Number: [id number] Electronically signed by:Neeru Kathleen MD,PhD Jan 16 2010 10:49PM MANAGER GOLF Reviewed by:Tacos Kaufman MD Feb 16 2010 9:31AM MANAGER GOLF documented in this encounter Plan of Treatment Upcoming Encounters Date Type Specialty Care Team Description 07/08/2022 Office Visit Ophthalmology Brennen Kathleen MD [address] [id number] (Wo rk) documented as of this encounter Visit Diagnoses Not on filedocumented in this encounter
== END 2022-07-02 13:36 | disposition home or self-care (01) ==
LOC: LONREF 13:36
PROVIDERS: PCP Family Medicine; Visit Provider Family Medicine
DX: E05.90 Thyrotoxicosis, unspecified without thyrotoxic crisis or storm (principal); I10 Essential (primary) hypertension; E78.5 Hyperlipidemia, unspecified
CPT/HCPCS: 84443

== ENCOUNTER 2023-02-04 10:52 | Outpatient (CLI) | payer MEDICARE, SELFPAY | END 2023-02-04 10:53 | disposition home or self-care (01) | PROVIDERS: PCP Family Medicine; Visit Provider Family Medicine | DX: I10 Essential (primary) hypertension (principal); E78.5 Hyperlipidemia, unspecified; E05.90 Thyrotoxicosis, unspecified without thyrotoxic crisis or storm; Z13.0 Encounter for screening for diseases of the blood and blood-forming organs and certain disorders involving the immune mechanism | CPT/HCPCS: 80048; 80061; 84443 ==

== ENCOUNTER 2023-08-07 10:35 | Outpatient (CLI) | payer MEDICARE, SELFPAY | END 2023-08-07 10:36 | disposition home or self-care (01) | LOC: LONREF 10:37 | PROVIDERS: PCP Family Medicine; Visit Provider Family Medicine | DX: I10 Essential (primary) hypertension (principal); E05.90 Thyrotoxicosis, unspecified without thyrotoxic crisis or storm; E13.9 Other specified diabetes mellitus without complications | CPT/HCPCS: 83036; 84443 ==

== ENCOUNTER 2024-02-08 11:07 | Outpatient (CLI) | payer MEDICARE, SELFPAY ==
--- OUTSIDE RECORDS SUMMARY | 2024-02-08 11:11 | XMS_ITS | Encounter Summary ---
Author Name Unknown Organization [place] Address [address] [place] [address] Care Team Providers Care Shoemaking Finisher Name Role Phone Vick Espinoza MD Primary Care Provider [phone] Cleopatra Velazquez MD Unavailable [phone] Neeru Kathleen MD Unavailable [phone] Neeru Kathleen MD Unavailable [phone] Cleopatra Velazquez MD Unavailable Neeru Kathleen MD Unavailable [phone] Encounter Details Date Type Department Care Team (Late st Contact Info) Description 01/10/2013 Office Visit-[facility] INTERFACE [facility] DEPT Unknown, Provider Social History Tobacco Use Types Packs/Day Years Used Date Smoking Tobacco: Never Assessed Sex and Gender Information Value Date Recorded Sex Assigned at Not on file Gender Identity Not on file Sexual Orientation Not on file documented as of this encounter Progress Notes * Unknown, Provider - 01/10/2013 10:30 AM CDT Floating Labor Gang Supervisor: Shantel Boothe Status: Final Encounter: 2013-01-10 10:30:00.000 Type: Rooming Note Reason For Visit VIRGILIO MCCAULEY is a 77 year old male being seen in clinic for fu S/p Yag LE Do you have any other appointments, tests or procedures within the [place] system for this same day? No. Pain [...] By: Shantel Boothe ; 01/10/2013 10:40 AM MANAGER HOME HEALTHCARE. documented in this encounter Plan of Treatment Upcoming Encounters Date Type Department Care Team (Late st Contact Info) Description 01/24/2025 1:10 PM CDT Office Visit [facility] Eye [address] 9 In Clin [address] [place] [address] Neeru Kathleen MD [address] [place] [address] documented as of this encounter Visit Diagnoses Not on filedocumented in this encounter Care Teams Shoemaking Finisher Relationship Specialty Start Date End Date Vick Espinoza MD [facility] [address] [place] [address] PCP - General Family Practice 09/15/14 Cleopatra Velazquez MD [address] [place] [address] [address] [place], [place] [address] Ophthalmology 10/10/15 Neeru Kathleen MD [address] [place] [address] Ophthalmology 12/14/17 Neeru Kathleen MD [address] [facility] [address] [place] [address] Assigned Surgical Provider 08/03/20 Cleopatra Velazquez MD [address] [facility] [address] [place], [place] [phone] Assigned Surgical Provider 08/26/2010/20/20 Neeru Kathleen MD [address] [facility] [address] [place], [place] [address] Assigned Surgical Provider 10/21/20 documented as of this encounter
--- OUTSIDE RECORDS SUMMARY | 2024-02-08 11:11 | XMS_ITS | Clinical Summary ---
Author Name Unknown Organization [place] Address [address] [facility] [place] [address] Care Team Providers Care Asphalt Engineer Name Role Phone Vick Espinoza MD Primary Care Provider Cleopatra Velazquez MD Unavailable [phone] Neeru Kathleen MD Unavailable Neeru Kathleen MD Unavailable Allergies No known active allergies Medications Medication Sig Dispensed Refills Start Date End Date Status SIMVASTATIN PO Take 20 mg by mouth At Bedtime Active amLODIPine (NORVASC) 5 MG tablet Take 5 mg by mouth daily Active metFORMIN (GLUCOPHAGE) 500 MG tablet Take 500 mg by mouth 2 times daily (with meals) Active lisinopril (PRINIVIL,ZESTRIL ) 20 MG tablet Take 40 mg by mouth daily Active Multiple Vitamins-Minerals (CENTRUM SILVER) per tablet Take 1 tablet by mouth daily Active aspirin 81 MG tablet Take 1 tablet by mouth daily Active FINASTERIDE PO Active VITAMIN D, CHOLECALCIFEROL, PO Take by mouth daily Active lisinopril-hydroc hlorothiazide (PRINZIDE,ZESTORE TIC) 20-25 MG per tablet Take 1 tablet by mouth daily Active Tadalafil (CIALIS PO) Active METFORMIN HCL PO Take 1,000 mg by mouth Active PROPYLTHIOURACIL PO Take by mouth 2 times daily Active UNKNOWN TO PATIENT UTI antibiotic Active Cyanocobalamin (B-12 PO) Take 1 tablet by mouth daily Active latanoprost (XALATAN) 0.005 % ophthalmic solutionIndicatio ns:Borderline glaucoma with ocular hypertension, bilateral Place 1 drop into both eyes at bedtime 7.5 mL 11 01/19/2024 Active latanoprost (XALATAN) 0.005 % ophthalmic solutionIndicatio ns:Borderline glaucoma with ocular hypertension, bilateral Place 1 drop into both eyes At Bedtime 7.5 mL 11 07/14/2023 01/19/2024 Discontinued (Reorder (No AVS)) Active Problems Problem Noted Date Diagnosed Date Borderline glaucoma with ocular hypertension, bi lateral 06/08/2017 Ocular hypertension 10/16/2014 Encounters Date Type Department Care Team Description 01/19/2024 1:10 PM CDT Office Visit [address] [phone] Neeru Kathleen MD Borderline glaucoma with ocular hypertension, bilateral; Vitreous syneresis of both eyes 01/19/2024 Travel 01/12/2024 Orders Only [address] [phone] Neeru Kathleen MD Borderline glaucoma with ocular hypertension, bilateral (Primary Dx); Vitreous syneresis of both eyes from Last 3 Months Family History Medical History Relation Comments Macular Degeneration Brother Glaucoma No family hx of Relation Status Comments Brother Social History Tobacco Use Types Packs/Day Years Used Date Smoking Tobacco: Former Smokeless Tobacco: Never PHQ-2 Answer Date Recorded PHQ-2 Score 0 12/31/2021 Adolescent Education Answer Date Record ed Getting School Help Needed Not on file 07/04 Sex and Gender Information Value Date Recorded Sex Assigned at Not on file Gender Identity Not on file Sexual Orientation Not on file Plan of Treatment Upcoming Encounters Date Type Department Care Team (Late st Contact Info) Description 01/24/2025 1:10 PM CDT Office Visit [address] [phone] Neeru Kathleen MD [address] [place], [place] [address] [place] [address] Health Maintenance Due Date Last Done Comments A1C 1935 ADVANCE CARE PLANNING 1935 ANNUAL REVIEW OF HM ORDERS 1935 BMP 1935 DIABETIC FOOT EXAM 1935 LIPID 1935 MICROALBUMIN 1935 RSV VACCINE ( & 60+) (1 - 1-dose 60+ series) 1996 MEDICARE ANNUAL WELLNESS VISIT 2001 IPV IMMUNIZATION (2 of 3 - Adult catch-up series) 06/13/2015 05/16/2015 FALL RISK ASSESSMENT 12/25/2021 12/25/2020, 10/19/2019, 02/11/2019, Additional history exists PHQ-2 (once per calendar year) 2023 12/31/2021, 12/25/2020, 10/19/2019, Additional history exists EYE EXAM 01/18/2025 01/19/2024, 12/11, 07/02/2021, Additional history exists DTAP/TDAP/TD IMMUNIZATION (4 - Td or Tdap) 01/14/2032 01/13/2022, 07/09/2014, 03/22/2012, Additional history exists ZOSTER IMMUNIZATION Completed 06/26/2019, 04/07/2019, 09/25/2010 Pneumococcal Vaccine: 65+ Years Completed 08/23/2021, 01/24/2015 COVID-19 Vaccine Completed 07/28/2023, 03/2023, 04/22/2022, Additional history exists INFLUENZA VACCINE Completed 07/28/2023, , 06/24/2021, Additional history exists HPV IMMUNIZATION Aged Out No longer e ligible based on patient's age to complete this topic MENINGITIS IMMUNIZATION Aged Out No l onger eligible based on patient's age to complete this topic RSV MONOCLONAL ANTIBODY Aged Out No l onger eligible based on patient's age to complete this topic Procedures Procedure Name Priority Date/Time Associated Diagnosis Comments OVF 24-2 DYNAMIC OU Routine 01/19/2024 3 :17 PM CDT Borderline glaucoma with ocular hypertension, bilateral OCT RETINA SPECTRALIS OU (BOTH EYE) Routine 01/19/2024 3:17 PM CDT Vitreous syneresis of both eyes OCT OPTIC NERVE RNFL SPECTRALIS OU (BOTH EYES) Routine 01/19/2024 3:17 PM CDT Borderline glaucoma with ocular hypertension, bilateral from Last 3 Months Results * OVF 24-2 Dynamic OU (01/19/2024 3:17 PM CDT) Neeru Hayden MD - 01/19/2024 3:17 PM CDT Performed by: BD . Patient cooperation: Reliable . Good fix, not dilated. Right Eye Reliability of the test: Fair . Findings: Nonspecific defect . Interpretation: Abnormal . Plan: Monitor . Interval: Initial . Left Eye Reliability of the test: Fair . Findings: Nonspecific defect . Interpretation: Abnormal . Plan: Monitor . Interval: Initial . Neeru Kathleen MD OPHTHALMOLOGY * OCT Retina Spectralis OU (both eyes) (01/19/2024 3:17 PM CDT) Neeru Hayden MD - 01/19/2024 3:17 PM CDT Performed by: EG . Patient cooperation: Reliable . Right Eye Reliability of the test: Good . Plan: Monitor . Interval: Same . Left Eye Reliability of the test: Good . Plan: Monitor . Interval: Same . Notes Findings and interpretation: retinal findings consistent with patient diagnoses as discussed in note Neeru Kathleen MD OPHTHALMOLOGY * OCT Optic Nerve RNFL Spectralis OU (both eyes) (01/19/2024 3:17 PM CDT) Neeru Hayden MD - 01/19/2024 3:17 PM CDT Performed by: EG . Patient cooperation: Reliable . Right Eye Reliability of the test: Good . Plan: Monitor . Interval: Same . Left Eye Reliability of the test: Good . Plan: Monitor . Interval: Same . Notes I viewed these images. ??Test findings and interpretation as documented in my note. Neeru Kathleen MD OPHTHALMOLOGY from Last 3 Months Care Teams Asphalt Engineer Relationship Specialty Start Date End Date Vick Espinoza MD [facility] [address] [place] [address] PCP - General Family Practice 09/15/14 Cleopatra Velazquez MD [address] [place] [address] 493 [place], [place] [phone] Ophthalmology 10/10/15 Neeru Kathleen MD [address] [place] [phone] Ophthalmology 12/14/17 Neeru Kathleen MD [address] [place] [phone] Assigned Surgical Provider 10/21/20
--- OUTSIDE RECORDS SUMMARY | 2024-02-08 11:11 | XMS_ITS | Encounter Summary ---
Author Name Unknown Organization [place] Address [address] [facility] [place] [address] Care Team Providers Care Quality Associate Name Role Phone Vick Espinoza MD Primary Care Provider [phone] Cleopatra Velazquez MD Unavailable [phone] Neeru Kathleen MD Unavailable [phone] Neeru Kathleen MD Unavailable [phone] Encounter Details Date Type Department Care Team (Latest Contact Info) Description 01/19/2024 Travel Social History Tobacco Use Types Packs/Day [...] Description 01/24/2025 1:10 PM CDT Office Visit [facility] [address] [facility] 9th Fl Clin 9A [place] [phone] Neeru Kathleen MD [address] [facility] [address] [place] [address] documented as of this encounter Visit Diagnoses Not on filedocumented in this encounter Care Teams Quality Associate Relationship Specialty Start Date End Date Vick Espinoza MD [facility] [address] [place] [address] PCP - General Family Practice 09/15/14 Cleopatra Velazquez MD [address] [facility] 493 [place] [address] Ophthalmology 10/10/15 Neeru Kathleen MD [address] [facility] [address] [place] [address] Ophthalmology 12/14/17 Neeru Kathleen MD [address] [facility] [address] [place] [address] Assigned Surgical Provider 10/21/20 documented as of this encounter
--- OUTSIDE RECORDS SUMMARY | 2024-02-08 11:11 | XMS_ITS | Referral Summary ---
Author Name Unknown Organization [place] Address [address] [facility] [place] [address] Care Team Providers Care Manufacturing Engineering Manager Name Role Phone Vick Espinoza MD Primary Care Provider Cleopatra Velazquez MD Unavailable Neeru Kathleen MD Unavailable Neeru Kathleen MD Unavailable Encounters Date Type Department Care Team Description 01/19/2024 Travel 01/19/2024 1:10 PM CDT Office Visit [address] [phone] Neeru Kathleen MD Borderline glaucoma with ocular hypertension, bilateral; Vitreous syneresis of both eyes 01/12/2024 Orders Only [address] [phone] Neeru Kathleen MD Borderline glaucoma with ocular hypertension, bilateral (Primary Dx); Vitreous syneresis of both eyes from Last 3 Months Allergies No known active allergies Medications Medication [...] hypertension, bi lateral 06/08/2017 Ocular hypertension 10/16/2014 Social History Tobacco Use Types Packs/Day Years [...] Description 01/24/2025 1:10 PM CDT Office Visit [facility] Eye [facility] Building [address] [facility] 9th Mt Clin 9A [place] [phone] Neeru Kathleen MD 6 [facility] [address] [place] [address] Procedures Procedure Name Priority Date/Time Associated Diagnosis [...] OPHTHALMOLOGY from Last 3 Months Care Teams Manufacturing Engineering Manager Relationship Specialty Start Date End Date Vick Espinoza MD [facility] [address] [place] [address] PCP - General Family Practice 09/15/14 Cleopatra Velazquez MD [address] [place] [address] [address] [place], [place] [address] Ophthalmology 10/10/15 Neeru Kathleen MD [address] [place] [phone] Ophthalmology 12/14/17 Neeru Kathleen MD [address] [place] [id number] Assigned Surgical Provider 10/21/20
--- OUTSIDE RECORDS SUMMARY | 2024-02-08 11:11 | XMS_ITS | Encounter Summary ---
Author Name Unknown Organization [facility] Address [address] [place] [address] Care Team Providers Care Endoscopy Registered Nurse Name Role Phone Vick Espinoza MD Primary Care Provider [phone] Cleopatra Velazquez MD Unavailable Madhu Kathleen MD Unavailable Madhu Kathleen MD Unavailable Reason for Visit * Reason Comments Primary Open Angle Glaucoma Follow Up 6 month follow up both eyes Encounter Details Date Type Department Care Team (Late st Contact Info) Description 01/19/2024 1:10 PM CDT Office Visit [facility] Eye [place] [address] [facility] 9th Fl Clin [address] [place] [phone] Madhu Kathleen MD [address] [facility] [address] [place], [place] [address] Borderline glaucoma with ocular hypertension, bilateral; Vitreous syneresis of both eyes Social History Tobacco Use Types Packs/Day Years [...] as of this encounter Progress Notes * Madhu Kathleen MD - 01/19/2024 1:10 PM CDT CC - h/o Retinal detachment both eyes s/p repair, POAG INTERVAL HISTORY - VA stable, no f/f PMH- Rakesh Warren is a 88 year old with T2DM and history of Retinal detachment both eyes s/p repair. History of T2DM since late , on metformin, most recent A1c normal per patient. PAST OCULAR SURGERY PPV/SBP OS 2009 SBP OD 2009 RETINAL IMAGING OCT 01/19/2024 OD - : trace ERM, PVD OS - : mild central atrophy/intraretinal deposits no fluid, stable HVF 24-2 01/19/24 OD- reliable, non-specific defects OS- reliable, non specific defects OCT RNFL OD - normal- stable OS - ST sector fluctuating, overall stable ASSESSMENT/PLAN: # h/o Retinal detachment OU s/p repair 2009 -SBP OD and PPV/SBP OS -retina flat both eyes -observe #. PVD OD -Stable, observe -s/sx Retinal detachment D/w patient 01/2024 #. Diabetes mellitus II no retinopathy -Blood sugar/blood pressure control (last A1c normal per patient) -Annual dilated eye exams #. Primary open angle glaucoma - Followed with Dr. Velazquez and on Latanoprost at bedtime both eyes - On Latanoprost - target low 20's per Marcus note - IOP OS mild elevation intermittent - OCT RNFL OD stable, OS fluctuates but overall stable - OVF OU fluctuating defects non-specific - suspect stable - monitor - recheck 6-12 months - if stable consider comprehensive referral for monitoring Return in about 1 year (around 01/18/2025) for DFE OU, OCT OU, OCT RNFL OU, OVF 24-2 OU. ATTESTATION Attending Physician Attestation: Complete documentation of [...] patient and family Madhu Kathleen MD, PhD Food Service Sales Representatives, Vitreoretinal Surgery Department of Ophthalmology [facility] documented in this encounter Nursing Notes * Shantel Boothe COMT - 01/19/2024 1:10 PM CDT Chief Complaints and History of Present Illnesses Patient presents with Primary Open Angle Glaucoma Follow Up 6 month follow up both eyes Chief Complaint(s) and History of Present Illness(es) Primary Open Angle Glaucoma Follow Up Comments: 6 month follow up both eyes Comments Pt states vision has been good with glasses since last visit. No new flashes or floaters. No eye pain today. No new redness or dryness. HERRERA Waller January 19, 2024 1:23 PM documented in this encounter Miscellaneous Notes * Addendum Note - Madhu Kathleen MD - 01/19/2024 1:10 PM CDTAddended by: MADHU KATHLEEN on: 01/19/2024 03:21 PM Modules accepted: Orders documented in this encounter Plan of Treatment Upcoming Encounters Date Type Department Care Team (Late st Contact Info) Description 01/24/2025 1:10 PM CDT Office Visit [facility] Eye [place] [address] [facility] [address] [place] [address] Madhu Kathleen MD [address] [place] [address] [address] [place] [address] documented as of this encounter Procedures Procedure [...] CDT Borderline glaucoma with ocular hypertension, bilateral documented in this encounter Results * OVF 24-2 Dynamic OU (01/19/2024 3:17 PM CDT) Madhu Hayden MD - 01/19/2024 3:17 PM CDT Performed by: BD . Patient cooperation: Reliable . Good fix, not dilated. Right Eye Reliability of the test: Fair . Findings: Nonspecific defect . Interpretation: Abnormal . Plan: Monitor . Interval: Initial . Left Eye Reliability of the test: Fair . Findings: Nonspecific defect . Interpretation: Abnormal . Plan: Monitor . Interval: Initial . Madhu Kathleen MD OPHTHALMOLOGY * OCT Retina Spectralis OU (both eyes) (01/19/2024 3:17 PM CDT) Madhu Hayden MD - 01/19/2024 3:17 PM CDT Performed by: EG . Patient cooperation: Reliable . Right Eye Reliability of the test: Good . Plan: Monitor . Interval: Same . Left Eye Reliability of the test: Good . Plan: Monitor . Interval: Same . Notes Findings and interpretation: retinal findings consistent with patient diagnoses as discussed in note Madhu Kathleen MD OPHTHALMOLOGY * OCT Optic Nerve RNFL Spectralis OU (both eyes) (01/19/2024 3:17 PM CDT) Madhu Hayden MD - 01/19/2024 3:17 PM CDT Performed by: EG . Patient cooperation: Reliable . Right Eye Reliability of the test: Good . Plan: Monitor . Interval: Same . Left Eye Reliability of the test: Good . Plan: Monitor . Interval: Same . Notes I viewed these images. ??Test findings and interpretation as documented in my note. Madhu Kathleen MD OPHTHALMOLOGY documented in this encounter Visit Diagnoses Diagnosis Borderline glaucoma with ocular hypertension, bilateral Vitreous syneresis of both eyes documented in this encounter Care Teams Endoscopy Registered Nurse Relationship Specialty Start Date End Date Vick Espinoza MD [facility] [address] [place] [address] PCP - General Family Practice 09/15/14 Cleopatra Velazquez MD [address] [place] [address] [address] [place], [place] [phone] Ophthalmology 10/10/15 Madhu Kathleen MD [address] [place], [place] [address] [place], [place] [address] Ophthalmology 12/14/17 Madhu Kathleen MD [address] [place] [address] Assigned Surgical Provider 10/21/20 documented as of this encounter
--- OUTSIDE RECORDS SUMMARY | 2024-02-08 11:11 | XMS_ITS | Encounter Summary ---
Author Name Unknown Organization [facility] Address [address] [place] [address] Care Team Providers Care Boring Machine Operator Double End Name Role Phone Vick Espinoza MD Primary Care Provider Cleopatra Velazquez MD Unavailable Neeru Kathleen MD Unavailable Neeru Kathleen MD Unavailable Encounter Details Date Type Department Care Team (Late Contact Info) Description 01/12/2024 Orders Only [facility] Eye [address] 9[address] Clin [address] [place] [phone] Neeru Kathleen MD [address] [facility] [address] [place] [address] Borderline glaucoma with ocular hypertension, bilateral (Primary Dx); Vitreous syneresis of both eyes Social History [...] Upcoming Encounters Date Type Department Care Team ([facility] Contact Info) Description 01/24/2025 1:10 PM CDT Office Visit [facility] [address] [facility] 9[address] Fl Clin [address] [place] [address] Neeru Kathleen MD [address] [facility] [address] [place] [address] documented as of this encounter Results * OVF 24-2 Dynamic OU (01/19/2024 3:17 PM CDT) Narrative Neeru Kathleen MD - 01/19/2024 3:17 PM CDT Performed [...] in my note. 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, bilateral Vitreous syneresis of both eyes documented in this encounter Care Teams Boring Machine Operator Double End Relationship Specialty Start Date End Date Vick Espinoza MD [facility]ICAL [facility] [address] [place] [address] PCP - General Family Practice 09/15/14 Cleopatra Velazquez MD [address] [place] [address] [address] [place], [place] [id number] Ophthalmology 10/10/15 Neeru Kathleen MD [address] [place], [place] [address] [place], [place] [address] Ophthalmology 12/14/17 Neeru Kathleen MD [address] [place] [address] Assigned Surgical Provider 10/21/20 documented as of this encounter
[2024-02-09 09:02] LABS: Hemoglobin A1C* 5.7 % (0-5.6)
== END 2024-02-08 11:08 | disposition home or self-care (01) ==
PROVIDERS: PCP Family Medicine; Visit Provider Family Medicine
DX: E13.9 Other specified diabetes mellitus without complications (principal)
CPT/HCPCS: 80048; 80061; 83036; 84443

== ENCOUNTER 2024-05-23 12:19 | Emergency (ER) | payer MEDICARE, SELFPAY ==
[2024-05-23 12:37] VITALS: BP 160/84; PULSE 55; RESP 16; TEMP 36.7; O2SAT 94; BMI 25.1
--- NOTE | 2024-05-23 13:49 | ED.GENADULT ---
HPI - General Adult General Date Seen: 05/23/24 Chief complaint: Hip Injury/Pain Stated complaint: right hip pain Time Seen by Provider: 05/23/24 12:41 History of Present Illness HPI narrative: 89-year-old gentleman with a history of type 2 diabetes, BPH, hypertension, hyperlipidemia, hearing loss, erectile dysfunction, glaucoma, presenting to the ER today with his family for evaluation of right hip pain. Patient does not have any recent falls or known injury but for the past week or so he has been having pain affecting his right posterior buttock and right posterior hip. It has gotten worse over the past few days where he has not been doing his normal amount of ambulation. He and his live in an assisted living any usually makes a point to walk up 2 flights of steps to their apartment every day. He tries not to take the elevator. However the for the past couple of days he has been borrowing his 's walker and take any elevator. He has been trying to treat his pain with [id number] Aleve but it is only marginally effective. He is not having any pain radiating down the leg. No weakness or numbness in the leg. No swelling. No fever chills. He has not noticed any rash or bruising. Related Data Home Medications ?Medication ?Instructions ?Recorded ?Confirmed Diabetic Test Strips 07/02/22 02/08/24 aspirin 81 mg tablet,delayed 81 mg PO QDAY 07/02/22 02/08/24 release latanoprost 0.005 % eye drops 1 drp ophthalmic (eye) QDAY 07/02/22 02/08/24 multivitamin 1 tab PO QDAY 07/02/22 02/08/24 Previous Rx's ?Medication ?Instructions ?Recorded blood sugar diagnostic (Contour #100 ea 06/02/22 Next Test Strips) propylthiouracil 50 mg tablet 50 mg PO BID #180 tabs 01/20/24 amlodipine 2.5 mg tablet 2.5 mg PO DAILY #90 tabs 02/08/24 finasteride 5 mg tablet 5 mg PO DAILY #90 tabs 02/08/24 hydrochlorothiazide 25 mg tablet See Rx Instructions .Route 02/08/24 .COMPLEX #90 tabs lisinopril 40 mg tablet See Rx Instructions .Route 02/08/24 .COMPLEX #90 tabs metformin 1,000 mg tablet See Rx Instructions .Route 02/08/24 .COMPLEX #180 tabs simvastatin 20 mg tablet See Rx Instructions .Route 02/08/24 .COMPLEX #90 tabs tadalafil 20 mg tablet 20 mg PO .As Needed PRN sexual 02/08/24 activity #7 tabs tamsulosin 0.4 mg capsule See Rx Instructions .Route 02/08/24 .COMPLEX #90 caps Allergies Allergy/AdvReac Type Severity Reaction Status Date / Time No Known Allergies Allergy Verified 05/23/24 12:36 [facility] Medical History COVID-19 ?U07.1 - COVID-19 (ICD-10) H/O retinal detachment ?Z86.69 - Personal history of other diseases of the nervous system and sense organs (ICD-10) Surgical History Status post eye surgery ?Z98.890 - Other specified postprocedural states (ICD-10) H/O parotidectomy ?Z90.49 - Acquired absence of other specified parts of digestive tract (ICD-10) Status post tonsillectomy and adenoidectomy ?Z90.89 - Acquired absence of other organs (ICD-10) Status post cataract extraction ?Z98.49 - Cataract extraction status, unspecified eye (ICD-10) Social History Narrative: Hx Tobacco use Smoking Status: Never smoker How often do you have a drink containing alcohol: monthly or less AUDIT-C Alcohol total score: 1 Non-prescribed substance use: denies use Little interest or pleasure in doing things: not at all Feeling down, depressed, or hopeless: several days service: Yes Exam Narrative: Exam Narrative: Constitutional: Appears well-developed and well-nourished. Alert. Conversant. Non toxic. HENT: Head: Atraumatic. Nose: Nose normal. Mouth/Throat: Oral mucosa is clear and moist. no trismus. Eyes: Conjunctivae normal. EOM normal. Pupils equal, round, and reactive to light. No scleral icterus. Neck: Normal range of motion. Neck supple. No tracheal deviation present. Cardiovascular: Normal rate, regular rhythm. No gallop. No friction rub. No murmur heard. Symmetric PT artery pulses Pulmonary/Chest: Effort normal. No stridor. No respiratory distress. No wheezes. No rales. No rhonchi . Abdominal: Soft.No distension. No mass. No tenderness. No rebound. No guarding. Musculoskeletal: No T or L-spine midline tenderness. Normal inspection of the back. He and his endorsing pain in the posterior pelvis but is not really tender to palpation there. No crepitus. He is able to flex his right hip to about 90?. No pain with internal or external rotation. No tenderness of the femur, quad, hamstring. Knee nontender. Lower leg nontender. Ankle nontender. Foot nontender. RUE: Normal range of motion. No tenderness. No deformity LUE: Normal range of motion. No tenderness. No deformity RLE: Normal range of motion. No edema. No tenderness. No deformity LLE: Normal range of motion. No edema. No tenderness. No deformity Lymph: No right-sided inguinal adenopathy. Neurological: Alert and oriented to person, place, and time. Normal strength. CN II-VII intact. No sensory deficit. GCS eye subscore is 4. GCS verbal subscore is 5. GCS motor subscore is 6. Normal coordination Sensory: Normal light touch sensation bilaterally on the anteromedial thigh (L3), medial malleolus (L4), dorsal first web space (L5), lateral malleolus (S1). Strength: 5/5 strength hip flexors (L3) on the right and left 5/5 strength in the quadriceps (L4) on the right and left 5/5 strength in the tibialis anterior 5/5 strength in the EHL (L5) on the right and left 5/5 strength in the gastrocnemius (S1) on the right and left 5/5 strength in the hamstring on the right and left Negative straight leg raise bilaterally. Skin: Skin is warm and dry. No rash noted. No pallor. Normal capillary refill. Psychiatric: Normal mood. Normal affect. Very polite. Const: Vital Signs, click to edit/add: Vital Signs - 24 hr 05/23/24 12:37 05/23/24 16:03 Temperature 98.1 F Pulse Rate [Pulse Oximeter] 55 L 55 L Respiratory Rate 16 18 Blood Pressure [Ri ght Upper Arm] 160/84 H 138/64 Pulse Oximetry 94 94 Oxygen Delivery Me thod Room Air Room Air Course Vital Signs Vital signs: Initial Vital Signs Temperature 98.1 F 05/23/24 12:37 Temperature Source Temporal Artery Scan 05/23/24 12:37 Pulse Rate 55 L 05/23/24 12:37 Pulse Rhythm Regular 05/23/24 12:37 Pulse Strength 3+ Normal 05/23/24 12:37 Respiratory Rate 16 05/23/24 12:37 Blood Pressure 160/84 H 05/23/24 12:37 Blood Pressure Mean 109 H 05/23/24 12:37 Blood Pressure Position Sitting 05/23/24 12:37 Pulse Oximetry 94 05/23/24 12:37 Oxygen Delivery Method Room Air 05/23/24 12:37 Vital Signs Temperature 98.1 F 05/23/24 12:37 Pulse Rate 55 L 05/23/24 12:37 Respiratory Rate 16 05/23/24 12:37 Blood Pressure 160/84 H 05/23/24 12:37 Pulse Oximetry 94 05/23/24 12:37 Oxygen Delivery Method Room Air 05/23/24 12:37 Temperature 98.1 F 05/23/24 12:37 Pulse Rate 55 L 05/23/24 16:03 Respiratory Rate 18 05/23/24 16:03 Blood Pressure 138/64 05/23/24 16:03 Pulse Oximetry 94 05/23/24 16:03 Oxygen Delivery Method Room Air 05/23/24 16:03 Medications Administered Medications: Discontinued Medications Generic Name Dose Route Start Last Admin Trade Name Freq PRN Reason Stop Dose Admin Acetaminophen 1,000 mg 05/23/24 14:00 05/23/24 14:11 Acetaminophen 500 Mg Tablet PO 05/23/24 14:01 1,000 mg ONCE ONE Administration Medical Decision Making [facility] Narrative Medical decision making narrative: Very pleasant 89-year-old gentleman presenting to the ER today with atraumatic progressively worsening pain involving his right posterior buttock and right hip for the past week or so. Patient does not have any fever or chills to suggest internal infection or septic joint. No anterior abdominal pain to suggest appendicitis or other GI cause for his hip pain. No urinary symptoms. Concern is for musculoskeletal pain. X-rays are obtained to look for possible pathologic fracture or osteoporotic insufficiency fracture. X-rays do show abnormality of the right hemipelvis. In this phone discussion with the radiologist he is concerned about possible bone Mets from primary such as prostate cancer and he recommends that we get noncontrast CT scan of the pelvis to further evaluate. Discussed with the patient and his family. They agree to go ahead with CT. CT is obtained and shows evidence for Paget disease affecting the bones of the right hemipelvis, but fortunately not aforementioned metastatic malignancy. No evidence for any associated pathologic fractures. Discussed with the patient that we will arrange outpatient ortho follow-up for further evaluation. Suspect Paget disease may be the cause for his pain. Will need further workup for the hip as well. At this point does not need imaging of his lumbar spine. No clear evidence for lumbar radiculopathy or any other acute neurosurgical emergency. Imaging Data CT scan - pelvis: Attestation: I have reviewed the pertinent imaging results. Radiologist's impression: IMPRESSION: 1. Paget`s disease of the right innominate. No worrisome osseous lesion. 2. Degenerative changes in the SI joints and lower lumbar spine. 3. Prominent prostatic enlargement. xr hip: Attestation: I have reviewed the pertinent imaging results. Radiologist's impression: Impression: 1. No evident acute fracture or traumatic subluxation. 2. Patchy lucency and sclerosis in the right hemipelvis, greater than expected for the degree of degenerative changes. This is nonspecific, and can be further characterized with a CT these findings were discussed with Dr. Rouse at 2:56 p.m. Discharge Plan Discharge Clinical Impression: Paget disease of bone Patient Disposition: Home, Self-Care Condition: Stable Instructions: Opioid Safety (ED), Hip Pain (ED) Additional Instructions: As we discussed, your x-rays and scans do not show any broken bones or any signs of cancer in your hip bone or pelvis. You do have signs of Paget disease which I think may be causing your pain. Please follow-up with the [facility] within the next 3-4 days. Call [phone] to schedule a follow-up appointment. To control your pain you can start with zwly-[id number]-[id number] medications: Use Tylenol 1000 mg every 6 hours as needed. You can use Aleve twice daily as needed Use the prescription pain killer-hydrocodone- if needed for uncontrolled pain. Be careful with hydrocodone because it can cause dizziness, drowsiness, falls, can cause constipation, and can be addictive. Prescriptions: No Action amlodipine 2.5 mg tablet 2.5 mg PO DAILY Qty: 90 3RF finasteride 5 mg tablet 5 mg PO DAILY Qty: 90 3RF hydrochlorothiazide 25 mg tablet See Rx Instructions .ROUTE .COMPLEX Qty: 90 3RF Dose Instruction: TAKE 1 TABLET BY MOUTH EVERY DAY Rx Instructions: TAKE 1 TABLET BY MOUTH EVERY DAY lisinopril 40 mg tablet See Rx Instructions .ROUTE .COMPLEX Qty: 90 3RF Dose Instruction: TAKE 1 TABLET BY MOUTH EVERY DAY Rx Instructions: TAKE 1 TABLET BY MOUTH EVERY DAY metformin 1,000 mg tablet See Rx Instructions .ROUTE .COMPLEX Qty: 180 3RF Dose Instruction: TAKE ONE TABLET BY MOUTH TWICE DAILY WITH MEALS Rx Instructions: TAKE ONE TABLET BY MOUTH TWICE DAILY WITH MEALS simvastatin 20 mg tablet See Rx Instructions .ROUTE .COMPLEX Qty: 90 3RF Dose Instruction: TAKE 1 TABLET BY MOUTH AT BEDTIME Rx Instructions: TAKE 1 TABLET BY MOUTH AT BEDTIME tamsulosin 0.4 mg capsule See Rx Instructions .ROUTE .COMPLEX Qty: 90 3RF Dose Instruction: TAKE 1 CAPSULE BY MOUTH EVERY DAY Rx Instructions: TAKE 1 CAPSULE BY MOUTH EVERY DAY tadalafil 20 mg tablet 20 mg PO .As Needed PRN (Reason: sexual activity) Qty: 7 2RF Rx Instructions: TAKE ONE TABLET 30 MIN TO 36 HRS PRIOR TO INTERCOURSE (DME) Diabetic Test Strips Misc See Rx Instructions .Route Rx Instructions: As directed multivitamin Tablet 1 tab PO QDAY latanoprost 0.005 % drops 1 drp ophthalmic (eye) QDAY aspirin 81 mg tablet,delayed release (DR/EC) 81 mg PO QDAY (DME) Contour Next Test Strips Strip See Rx Instructions .Route Qty: 100 5RF Rx Instructions: TEST ONCE DAILY. propylthiouracil 50 mg tablet 50 mg PO BID Qty: 180 3RF Follow Up/Referrals: Tre Espinoza MD [Primary Care Provider] - Stand Alone Forms: [employer] Info Instructions
--- NOTE | 2024-05-23 14:00 | CRLHL7_ITS ---
For Patients: As a result of the Century Cures Act, medical imaging exams and procedure reports are released immediately into your electronic medical record. You may view this report before your referring provider. If you have questions, please contact your health care provider. Indication: Right hip and post pelvis pain, no fall. Technique: Pelvis and right hip 3 views. Comparison: None. Findings: Alignment is normal. In the right hemipelvis, including the acetabulum, obturator ring and iliac wing, there multiple foci of sclerosis and relative lucency. The acetabular foci are greater than expected for the degree of hip joint space narrowing, which is relatively mild. No evident fractures. Soft tissues: Unremarkable. Impression: 1. No evident acute fracture or traumatic subluxation. 2. Patchy lucency and sclerosis in the right hemipelvis, greater than expected for the degree of degenerative changes. This is nonspecific, and can be further characterized with a CT these findings were discussed with Dr. Rouse at 2:56 p.m. Dictated by Yoan Bess MD @ 05/23/2024 2:57:21 PM (Electronically Signed)
[2024-05-23] MEDS: ACETAMINOPHEN 500 MG TABLET 1000 MG PO (14:11)
--- OUTSIDE RECORDS SUMMARY | 2024-05-23 14:23 | XMS_ITS | Referral Summary ---
Author Organization [facility] Address [address] [place] [address] Care Team Providers Care Inbound Sales Manager Name Role Phone Vick Espinoza MD Primary Care Provider Cleopatra Velazquez MD Unavailable [phone] Neeru Kathleen MD Unavailable Neeru Kathleen MD Unavailable [phone] Allergies No known active allergies Medications Medication Sig Dispensed Refills Start Date End Date Status SIMVASTATIN PO Take 20 mg by mouth At Bedtime Active amLODIPine (NORVASC) 5 MG tablet Take 5 mg by mouth daily Active metFORMIN (GLUCOPHAGE) 500 MG tablet Take 500 mg by mouth 2 times daily (with meals) Active lisinopril (PRINIVIL,ZESTRIL) 20 MG tablet Take 40 mg by mouth daily Active Multiple Vitamins-Minerals (CENTRUM SILVER) per tablet Take 1 tablet by mouth daily Active aspirin 81 MG tablet Take 1 tablet by mouth daily Active FINASTERIDE PO Active VITAMIN D, CHOLECALCIFEROL, PO Take by mouth daily Active lisinopril-hydrochlo rothiazide (PRINZIDE,ZESTORETIC ) 20-25 MG per tablet Take 1 tablet by mouth daily Active Tadalafil (CIALIS PO) Active METFORMIN HCL PO Take 1,000 mg by mouth Active PROPYLTHIOURACIL PO Take by mouth 2 times daily Active UNKNOWN TO PATIENT UTI antibiotic Ac tive Cyanocobalamin (B-12 PO) Take 1 tablet by mouth daily Active latanoprost (XALATAN) 0.005 % ophthalmic solutionIndications: Borderline glaucoma with ocular hypertension, bilateral Place 1 drop into both eyes at bedtime 7.5 mL 11 01/19/2024 Active Active Problems Problem Noted Date Diagnosed Date [...] Description 01/24/2025 1:10 PM CDT Office Visit [facility] Eye [facility] [address] [facility] [address] [place] [address] Neeru Kathleen MD [address] [place] [address] [address] [place], [place] [address] Care Teams Inbound Sales Manager Relationship Specialty Start Date End Date Vick Espinoza MD PCP - General Family Practice 09/15/14 Cleopatra Velazquez MD [address] [place] [address] [address] [place], [place] [phone] Ophthalmology 10/10/15 Neeru Kathleen MD [address] [place] [address] [place] [address] Ophthalmology 12/14/17 Neeru Kathleen MD [address] [place] [address] Assigned Surgical Provider 10/21/20
--- OUTSIDE RECORDS SUMMARY | 2024-05-23 14:23 | XMS_ITS | Encounter Summary ---
Author Organization [facility] Address [address] [facility] [place] [address] Care Team Providers Care Dock Superintendent Name Role Phone Vick Espinoza MD Primary Care Provider [phone] Cleopatra Velazquez MD Unavailable [phone] Neeru Kathleen MD Unavailable [phone] Neeru Kathleen MD Unavailable Cleopatra Velazquez MD Unavailable [phone] Neeru Kathleen MD Unavailable Encounter Details Date Type Department Care Team (Late st Contact Info) Description 01/10/2013 Office Visit-P INTERFACE [facility] DEPT Unknown, Provider Social History Tobacco Use Types Packs/Day Years Used Date Smoking Tobacco: Never Assessed Sex and Gender Information Value Date Recorded Sex Assigned at Not on file Gender Identity Not on file Sexual Orientation Not on file documented as of this encounter Progress Notes * Unknown, Provider - 01/10/2013 10:30 AM CDT Tire Center Manager: Shantel Boothe Status: Final Encounter: 2013-01-10 10:30:00.000 Type: Rooming Note Reason For Visit VIRGILIO MCCAULEY is a 77 year old male being seen in clinic for fu S/p Yag LE Do you have any other appointments, tests or procedures within the [facility] system for this same day? No. Pain [...] By: Shantel Boothe ; 01/10/2013 10:40 AM LACQUER PIN PRESS OPERATOR. documented in this encounter Plan of Treatment Upcoming Encounters Date Type Department Care Team (Late st Contact Info) Description 01/24/2025 1:10 PM CDT Office Visit [address] 9A [place] [address] Neeru Kathleen MD [address] [place] [address] [id number] documented as of this encounter Visit Diagnoses Not on filedocumented in this encounter Care Teams Dock Superintendent Relationship Specialty Start Date End Date Vick Espinoza MD PCP - General Family Practice 09/15/14 Cleopatra Velazquez MD [address] [place] [address] Ophthalmology 10/10/15 Neeru Kathleen MD [address] [place] [address] Ophthalmology 12/14/17 Neeru Kathleen MD [address] [place] [address] [phone] Assigned Surgical Provider 08/03/20 Cleopatra Velazquez MD 420 [facility] 493 [place], [place] [phone] Assigned Surgical Provider 08/26/2010/20/20 Neeru Kathleen MD 516 [facility] 911 [place], [place] [phone] Assigned Surgical Provider 10/21/20 documented as of this encounter
--- OUTSIDE RECORDS SUMMARY | 2024-05-23 14:23 | XMS_ITS | Clinical Summary ---
Author Organization [facility] Address [address] [facility] [place] [address] Care Team Providers Care Career Based Intervention Coordinator Name Role Phone Vick Espinoza MD Primary Care Provider [phone] Cleopatra Velazquez MD Unavailable [phone] Neeru Kathleen MD Unavailable [phone] Neeru Kathleen MD Unavailable [phone] Allergies No known active allergies Medications Medication [...] hypertension, bi lateral 06/08/2017 Ocular hypertension 10/16/2014 Family History Medical History Relation Comments Macular [...] Description 01/24/2025 1:10 PM CDT Office Visit [facility] 516 [facility] 9th Mt Clin 9A [place] [address] Neeru Kathleen MD [address] [place] [address] 911 [place] [address] Health Maintenance Due Date Last Done Comments [...] 2023 12/31/2021, 12/25/2020, 10/19/2019, Additional history exists COVID-19 Vaccine ( season) 2023 07/28/2023, 11/17/2022, 04/22/2022, Additional history exists INFLUENZA VACCINE (#1) 2024 , 08/21/2022, 06/24/2021, Additional history exists EYE EXAM 01/18/2025 01/19/2024, 12/11, 07/02/2021, Additional history exists DTAP/TDAP/TD IMMUNIZATION (4 - Td or Tdap) 01/14/2032 01/13/2022, 07/09/2014, 03/22/2012, Additional history exists ZOSTER IMMUNIZATION Completed 06/26/2019, 04/07/2019, 09/25/2010 Pneumococcal Vaccine: 65+ Years Completed 08/23/2021, 01/24/2015 HPV IMMUNIZATION Aged Out No longer e ligible based on patient's age to complete this topic MENINGITIS IMMUNIZATION Aged Out No l onger eligible based on patient's age to complete this topic RSV MONOCLONAL ANTIBODY Aged Out No l onger eligible based on patient's age to complete this topic Care Teams Career Based Intervention Coordinator Relationship Specialty Start Date End Date Vick Espinoza MD PCP - General Family Practice 09/15/14 Cleopatra Velazquez MD 420 [facility] 493 [place] [address] Ophthalmology 10/10/15 Neeru Kathleen MD 516 [facility] 911 [place], [place] [phone] Ophthalmology 12/14/17 Neeru Kathleen MD [address] [address] Assigned Surgical Provider 10/21/20
--- NOTE | 2024-05-23 15:17 | CRLHL7_ITS ---
For Patients: As a result of the Century Cures Act, medical imaging exams and procedure reports are released immediately into your electronic medical record. You may view this report before your referring provider. If you have questions, please contact your health care provider. EXAM: CT OF THE RIGHT HIP, WITHOUT CONTRAST CLINICAL INDICATION: Right hip pain and abnormal x-ray. COMPARISON STUDIES: The 09/2024 radiographs. 06/06/2012 CT abdomen pelvis. TECHNICAL: Non-contrast CT of the pelvis with axial images. Sagittal oblique and coronal oblique reformatted images of the right hip created. FINDINGS: RIGHT HIP: No joint effusion or loose body. No joint space narrowing, hypertrophic changes or subchondral cystic change. OSSEOUS STRUCTURES: Cortical thickening and coarse trabeculation with mild enlargement of the right. Findings are consistent with Paget`s disease. Findings are stable since the prior CT. No fracture or destructive osseous lesion. No evidence for chronic avascular necrosis. OTHER JOINT SPACES: Left Hip: No joint effusion. SI Joints: Mild degenerative changes. Lumbar Spine: Degenerative changes in the lower lumbosacral interspace and lower lumbar facets. MUSCLES AND TENDONS: No intramuscular mass or hematoma. No muscle atrophy. No retracted tendon tear. SOFT TISSUES: No subcutaneous edema, fluid collection or hematoma. INTRAPELVIC CONTENTS: Prominent prostatic enlargement. NEUROVASCULAR STRUCTURES: No abnormality of the neurovascular structures. IMPRESSION: 1. Paget`s disease of the right innominate. No worrisome osseous lesion. 2. Degenerative changes in the SI joints and lower lumbar spine. 3. Prominent prostatic enlargement. Please note that all CT scans at this facility use dose modulation, iterative reconstruction, and/or weight-based dosing when appropriate to reduce radiation dose to as low as reasonably achievable. Dictated by Kale Watson MD @ 05/23/2024 4:06:36 PM (Electronically Signed)
[2024-05-23 16:03] VITALS: BP 138/64; PULSE 55; RESP 18; O2SAT 94
== END 2024-05-23 16:52 | disposition home or self-care (01) ==
PROVIDERS: Emergency Provider Emergency Medicine; PCP Family Medicine
DX: M88.88 Osteitis deformans of other bones (principal)
CPT/HCPCS: 72192; 73502; 99283; 99284; A9270

== ENCOUNTER 2024-06-10 12:48 | Outpatient (CLI) | payer MEDICARE, SELFPAY ==
--- OUTSIDE RECORDS SUMMARY | 2024-06-10 12:51 | XMS_ITS | Referral Summary ---
Author Organization [facility] Address [address] [place] [address] Care Team Providers Care Chain Saw Mechanic Name Role Phone Vick Espinoza MD Primary Care Provider [phone] Cleopatra Velazquez MD Unavailable Neeru Kathleen MD [...] Description 01/24/2025 1:10 PM CDT Office Visit [facility] [address] [facility] 9 [address] 9A [place] [address] Neeru Kathleen MD [address] [place] [address] 911 [place], [place] [address] Care Teams Chain Saw Mechanic Relationship Specialty Start Date End Date Vick Espinoza MD PCP - General Family Practice 09/15/14 Cleopatra Velazquez MD [address] [place] [address] 493 [place], [place] [phone] Ophthalmology 10/10/15 Neeru Kathleen MD [address] [place] [address] [place] [address] Ophthalmology 12/14/17 Neeru Kathleen MD [address] [place] [address] Assigned Surgical Provider 10/21/20
--- OUTSIDE RECORDS SUMMARY | 2024-06-10 12:51 | XMS_ITS | Clinical Summary ---
Author Organization [facility] Address [address] [place] [address] Care Team Providers Care Livestock Ranch Hand Name Role Phone Vick Espinoza MD Primary Care Provider [phone] Cleopatra Velazquez MD Unavailable [phone] Neeru Kathleen MD Unavailable Neeru Kathleen [...] Description 01/24/2025 1:10 PM CDT Office Visit [facility] 516 [facility] 9th [address] Clin 9A [place] [address] Neeru Kathleen MD [address] [place] [address] 911 [place] [address] Health Maintenance Due Date Last Done Comments A1C 1936 ADVANCE CARE PLANNING 1936 ANNUAL REVIEW OF HM ORDERS 1936 BMP 1936 DIABETIC FOOT EXAM 1936 LIPID 1936 MICROALBUMIN 1936 RSV VACCINE (1 - 1-dose 60+ series) 1996 MEDICARE ANNUAL WELLNESS VISIT 2001 FALL RISK ASSESSMENT 12/25/2021 12/25/2020, 10/19/2019, 02/11/2019, Additional history exists PHQ-2 (once per calendar year) 2023 12/31/2021, 12/25/2020, 10/19/2019, Additional history exists COVID-19 Vaccine ( season) 2023 07/28/2023, 11/17/2022, 04/22/2022, Additional history exists INFLUENZA VACCINE (#1) 2024 , 08/21/2022, 06/24/2021, Additional history exists EYE EXAM 01/18/2025 01/19/2024, 0305/2023, 07/02/2021, Additional history exists DTAP/TDAP/TD IMMUNIZATION (4 [...] age to complete this topic Care Teams Livestock Ranch Hand Relationship Specialty Start Date End Date Vick Espinoza MD PCP - General Family Practice 09/15/14 Cleopatra Velazquez MD [address] [place] [address] [phone] Ophthalmology 10/10/15 Neeru Kathleen MD [address] [place] [address] 286205 Ophthalmology 12/14/17 Neeru Kathleen MD [address] [place] [address] [phone] Assigned Surgical Provider 10/21/20
--- OUTSIDE RECORDS SUMMARY | 2024-06-10 12:52 | XMS_ITS | Encounter Summary ---
Author Organization [facility] Address [address] [facility] [place] [address] Care Team Providers Care Coordinator Mining Products Name Role Phone Vick Espinoza MD Primary Care Provider [phone] Cleopatra Velazquez MD Unavailable [phone] Neeru Kathleen MD Unavailable Neeru Kathleen MD Unavailable [phone] Cleopatra Velazquez MD Unavailable [phone] Neeru Kathleen MD Unavailable Encounter Details [...] Unknown, Provider - 01/10/2013 10:30 AM CDT Pressure Controller: Shantel Boothe Status: Final Encounter: 2013-01-10 10:30:00.000 Type: Rooming Note Reason For Visit VIRGILIO MCCAULEY is a 77 year old male being seen in clinic for fu S/p Yag LE Do you have any other appointments, tests or procedures within the [facility] system for this same day? No. Pain [...] By: Shantel Boothe ; 01/10/2013 10:40 AM SOX ANALYST. documented in this encounter Plan of Treatment Upcoming Encounters Date Type Department Care Team (Late st Contact Info) Description 01/24/2025 1:10 PM CDT Office Visit [address] 9 [address] 9A [place] [address] Neeru Kathleen MD [address] [place] [address] [phone] documented as of this encounter Visit Diagnoses Not on filedocumented in this encounter Care Teams Coordinator Mining Products Relationship Specialty Start Date End Date Vick Espinoza MD PCP - General Family Practice 09/15/14 Cleopatra Velazquez MD [address] [place] [address] Ophthalmology 10/10/15 Neeru Kathleen MD [address] [place] [address] Ophthalmology 12/14/17 Neeru Kathleen MD [address] [place] [address] [phone] Assigned Surgical Provider 08/03/20 Cleopatra Velazquez MD 420 [facility] 493 [place], [place] [phone] Assigned Surgical Provider 08/26/2010/20/20 Neeru Kathleen MD 516 [facility] 911 [place], [place] [phone] Assigned Surgical Provider 10/21/20 documented as of this encounter
--- NOTE | 2024-06-10 13:00 | CRLHL7_ITS ---
For Patients: As a result of the 21st Century Cures Act, medical imaging exams and procedure reports are released immediately into your electronic medical record. You may view this report before your referring provider. If you have questions, please contact your health care provider. INDICATION: Low back pain. COMPARISON: None. TECHNIQUE: Sagittal T1, T2, and STIR sequences. Axial T1 and T2 weighted sequences. FINDINGS: Lower lumbar curve convex the left. In sagittal plane, normal vertebral body alignment. No acute fractures. No spondylolisthesis. No ligamentous injury. No suspicious osseous lesions. Normal conus terminates at L1. Lumbar spondylosis with multilevel disc degeneration facet arthropathy. Joint effusion of the right L3-4 facet joint with prominent degenerative cyst along the posterior inferior margin of the joint space. Small Schmorl`s nodes at the endplates of L2 and L3. Normal conus terminates at L1-2. T12-L1 L1-2: No spinal canal or neural foraminal narrowing. L2-3: Disc degeneration. Diffuse disc bulge eccentric to the right. No narrowing of spinal canal. Mild narrowing of the bilateral foramina. L3-4: Disc degeneration. Diffuse disc bulge. No narrowing of the spinal canal. Facet arthropathy results in mild narrowing of bilateral foramina. L4-5: Disc degeneration. Posterior disc bulge. Flattening of ventral thecal sac. Mild narrowing of spinal canal. There is a superimposed right paracentral and subarticular disc extrusion measuring approximately 10 mm in diameter with 11 mm of cephalad migration. Impingement of the traversing portion of the right L4 nerve root. Facet arthropathy results in mild narrowing of bilateral foramina. Mild facet arthropathy. L5-S1: Disc degeneration. Diffuse disc bulge and endplate osteophytic ridging eccentric to the left. No narrowing of the spinal canal. No impingement of the traversing S1 nerve roots. Mild right and moderate left neural foraminal narrowing. Mild os arthropathy. Degenerative changes of the SI joints. IMPRESSION: 1. Normal alignment. No fractures. 2. Lumbar spondylosis. Joint effusion of the right L3-4 facet joint with prominent degenerative cyst along the posterior inferior margin of the joint space 3. At L4-5, disc degeneration. Posterior disc bulge. Superimposed right paracentral and subarticular disc extrusion. Impingement of the traversing portion of the right L4 nerve root. Mild narrowing of the bilateral neural foramina 4. At L5-S1, mild right and moderate left neural foraminal narrowing. Dictated by Javier Khan MD @ 06/12/2024 10:17:23 PM (Electronically Signed)
--- NOTE | 2024-06-10 13:45 | CRLHL7_ITS ---
For Patients: As a result of the Century Cures Act, medical imaging exams and procedure reports are released immediately into your electronic medical record. You may view this report before your referring provider. If you have questions, please contact your health care provider. CLINICAL INDICATION: Right hip pain. COMPARISON IMAGING STUDIES: Radiographs 05/23/2024. CT from 05/23/2024. TECHNICAL: Noncontrast MRI of the right hip. 1.5 Radha MR scanner. FINDINGS: RIGHT HIP: No right hip joint effusion. Subchondral bone marrow edema present within the superior medial acetabulum likely relates to underlying full-thickness grade 4 cartilage loss. Moderate grade thinning of the femoral head articular cartilage (grade 2/3). Degenerative labral changes. Underlying cam morphology of the proximal femur. LEFT HIP: No left hip joint effusion. Cam morphology of the left proximal femur. Subchondral cystic-like change involving the superior acetabulum likely relates to underlying grade 4 chondromalacia. Moderate femoral head articular cartilage wear. OSSEOUS STRUCTURES: There is Paget`s disease involving the right hemipelvis. No acute fracture or avascular necrosis. MUSCULOTENDINOUS STRUCTURES AND BURSAE: Mild peritrochanteric edema. No significant trochanteric bursal fluid collection. No high-grade distal gluteal tendon tear. Common hamstring tendons are intact. Distal iliopsoas tendons are intact. OTHER FINDINGS: Degenerative changes of the pubic symphysis and sacroiliac joints. Degenerative changes within the spine. INTRAPELVIC CONTENTS: Enlarged prostate. Small fat containing left inguinal hernia. Colonic diverticulosis. IMPRESSION: 1. Paget disease involving the right hemipelvis. 2. No fracture or AVN. 3. 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 No hip joint effusion. Dictated by Sean Jimenez MD @ 06/14/2024 10:00:40 AM (Electronically Signed)
== END 2024-06-10 12:49 | disposition home or self-care (01) ==
LOC: MRI 12:50
PROVIDERS: PCP Family Medicine; Visit Provider Family Medicine
DX: M54.50 Low back pain, unspecified (principal); M47.896 Other spondylosis, lumbar region; M51.36 Other intervertebral disc degeneration, lumbar region; M51.26 Other intervertebral disc displacement, lumbar region; M88.9 Osteitis deformans of unspecified bone; M25.551 Pain in right hip
CPT/HCPCS: 72148; 73721

== ENCOUNTER 2024-06-20 10:18 | Outpatient (CLI) | payer MEDICARE, SELFPAY ==
--- OUTSIDE RECORDS SUMMARY | 2024-06-20 10:22 | XMS_ITS | Encounter Summary ---
Author Organization [facility] Address [address] [facility] [place] [address] Care Team Providers Care Secondary Social Studies Teacher Name Role Phone Vick Espinoza MD Primary Care Provider Cleopatra Velazquez MD Unavailable Neeru Kathleen MD Unavailable Neeru Kathleen MD Unavailable Cleopatra Velazquez MD Unavailable Neeru Kathleen MD Unavailable [phone] Encounter Details Date Type Department Care Team [...] Unknown, Provider - 01/10/2013 10:30 AM CDT Folder Gluer Operator: Shantel Boothe Status: Final Encounter: 2013-01-10 10:30:00.000 Type: Rooming Note Reason For Visit VIRGILIO MCCAULEY is a 77 year old male being seen in clinic for fu S/p Yag LE Do you have any other appointments, tests or procedures within the [facility] system for this same day? No. Pain [...] By: Shantel Boothe ; 01/10/2013 10:40 AM DRUG ROOM CLERK. documented in this encounter Plan of Treatment Upcoming Encounters Date Type Department Care Team (Late st Contact Info) Description 01/24/2025 1:10 PM CDT Office Visit [address] 9 [address] Clin 9A [place] [address] Neeru Kathleen MD [address] [place] [address] [phone] documented as of this encounter Visit Diagnoses Not on filedocumented in this encounter Care Teams Secondary Social Studies Teacher Relationship Specialty Start Date End Date Vick Espinoza MD PCP - General Family Practice 09/15/14 Cleopatra Velazquez MD [address] [place] [address] Ophthalmology 10/10/15 Neeru Kathleen MD [address] [place] [address] Ophthalmology 12/14/17 Neeru Kathleen MD [address] [place] [address] [phone] Assigned Surgical Provider 08/03/20 Cleopatra Velazquez MD 420 [facility] 493 [place], [place] [phone] Assigned Surgical Provider 08/26/2010/20/20 Neeru Kathleen MD 516 [facility] 911 [place], [place] [phone] Assigned Surgical Provider 10/21/20 documented as of this encounter
--- OUTSIDE RECORDS SUMMARY | 2024-06-20 10:22 | XMS_ITS | Clinical Summary ---
Author Organization [facility] Address [address] [facility] [place] [place] [address] Care Team Providers Care Hamper Maker Name Role Phone Vick Espinoza MD Primary Care Provider [phone] Cleopatra Velazquez MD Unavailable [phone] Neeru Kathleen MD Unavailable [phone] Neeru Kathleen MD Unavailable Allergies No known [...] Description 01/24/2025 1:10 PM CDT Office Visit [facility] 516 [facility] 9th Or Clin 9A [place] [address] Neeru Kathleen MD [address] [place] [address] [address] [place] [address] Health Maintenance Due Date Last Done Comments [...] Additional history exists COVID-19 Vaccine ( season) 2024 07/28/2023, 11/17/2022, 04/22/2022, Additional history exists INFLUENZA [...] age to complete this topic Care Teams Hamper Maker Relationship Specialty Start Date End Date Vick Espinoza MD PCP - General Family Practice 09/15/14 Cleopatra Velazquez MD 420 [facility] 493 [place] [address] Ophthalmology 10/10/15 Neeru Kathleen MD 516 [facility] 911 [place], [place] [phone] Ophthalmology 12/14/17 Neeru Kathleen MD [address] [address] Assigned Surgical Provider 10/21/20
--- OUTSIDE RECORDS SUMMARY | 2024-06-20 10:22 | XMS_ITS | Referral Summary ---
Author Organization [facility] Address [address] [place] [address] Care Team Providers Care Boilers Inspector Name Role Phone Vick Espinoza MD Primary Care Provider Cleopatra Velazquez MD Unavailable [phone] Neeru Kathleen MD Unavailable Nereu Kathleen MD Unavailable Allergies No known active [...] Description 01/24/2025 1:10 PM CDT Office Visit [facility] 516 [facility] 9th [address] Clin 9A [place] [address] Neeru Kathleen MD 516 [facility] 911 [place] [address] Care Teams Boilers Inspector Relationship Specialty Start Date End Date Vick Espinoza MD PCP - General Family Practice 09/15/14 Cleopatra Velazquez MD [address] [place] [address] 493 [place] [address] Ophthalmology 10/10/15 Neeru Kathleen MD [address] [place] 133971 [place], [place] [address] Ophthalmology 12/14/17 Neeru Kathleen MD [address] 133971 [place] [address] Assigned Surgical Provider 10/21/20
== END 2024-06-20 10:19 | disposition home or self-care (01) ==
PROVIDERS: PCP Family Medicine; Visit Provider Family Medicine
DX: E78.5 Hyperlipidemia, unspecified (principal); E05.90 Thyrotoxicosis, unspecified without thyrotoxic crisis or storm; I10 Essential (primary) hypertension; I49.9 Cardiac arrhythmia, unspecified; E13.9 Other specified diabetes mellitus without complications; Z13.0 Encounter for screening for diseases of the blood and blood-forming organs and certain disorders involving the immune mechanism
CPT/HCPCS: 80048; 84439; 84443

== ENCOUNTER 2024-09-16 12:29 | Outpatient (CLI) | payer MEDICARE, SELFPAY ==
--- OUTSIDE RECORDS SUMMARY | 2024-09-16 12:31 | XMS_ITS | Clinical Summary ---
Author Organization [place] Address [address] [place] [address] Care Team Providers Care Hand Turner Name Role Phone Vick Espinoza MD Primary Care Provider Cleopatra Velazquez MD Unavailable Neeru Kathleen MD Unavailable Neeru Kathleen MD Unavailable [phone] Allergies No known active allergies Medications SIMVASTATIN PO Take 20 mg by mouth At Bedtime Active amLODIPine (NORVASC) 5 MG tablet Take 5 mg by mouth daily Active metFORMIN (GLUCOPHAGE) 500 MG tablet Take 500 mg by mouth 2 times daily (with meals) Active lisinopril (PRINIVIL,ZESTR IL) 20 MG tablet Take 40 mg by mouth daily Active Multiple Vitamins-Minera ls (CENTRUM SILVER) per tablet Take 1 tablet by mouth daily Active aspirin 81 MG tablet Take 1 tablet by mouth daily Active FINASTERIDE PO Activ e VITAMIN D, CHOLECALCIFEROL , PO Take by mouth daily Active lisinopril-hydr ochlorothiazide (PRINZIDE,ZESTO RETIC) 20-25 MG per tablet Take 1 tablet by mouth daily Active Tadalafil (CIALIS PO) Active METFORMIN HCL PO Take 1,000 mg by mouth Active PROPYLTHIOURACI L PO Take by mouth 2 times daily Active UNKNOWN TO PATIENT UTI antibiotic Activ e Cyanocobalamin (B-12 PO) Take 1 tablet by mouth daily Active latanoprost (XALATAN) 0.005 % ophthalmic solutionIndicat ions:Borderline glaucoma with ocular hypertension, bilateral Place 1 drop into both eyes at bedtime 7.5 mL 11 4 Active Active Problems Problem Noted Date Diagnosed [...] Recorded Sex Assigned at Not on file Legal Sex Male 4:02 AM PRINT MANAGER Gender Identity Not on file Sexual Orientation Not on file Plan of Treatment Upcoming Encounters Date Type Department Care Team (Late st Contact Info) Description 01/24/2025 1:10 PM CDT Office Visit [facility] [place] [address] [facility] 9A [place] [address] Neeru Kathleen MD [address] [place] [address] 911 [place] [address] Health Maintenance Due Date Last Done Comments A1C 1936 ADVANCE CARE PLANNING 1936 ANNUAL REVIEW OF HM ORDERS 1936 BMP 1936 DIABETIC FOOT EXAM 1936 LIPID 1936 MICROALBUMIN 1936 MEDICARE ANNUAL WELLNESS VISIT 2001 RSV VACCINE (1 - 1-dose 75+ series) 2011 FALL RISK ASSESSMENT 12/25/2021 12/25/2020, 10/19/2019, 02/11/2019, Additional history exists PHQ-2 (once per calendar year) 2023 12/31/2021, 12/25/2020, 10/19/2019, Additional history exists COVID-19 Vaccine ( season) 2024 07/28/2023, 11/17/2022, 04/22/2022, Additional history exists INFLUENZA VACCINE (#1) 2024 3, 08/21/2022, 06/24/2021, Additional history exists EYE EXAM [...] on patient's age to complete this topic Insurance MEDICARE ADVANTAGE MEDICARE ADVANTAGE Care Teams Hand Turner Relationship Specialty Start Date End Date Vick Espinoza MD PCP - General Family Practice 09/15/14 Cleopatra Velazquez MD [address] [place] [address] Ophthalmology 10/10/15 Neeru Kathleen MD [address] [place] [address] Ophthalmology 12/14/17 Neeru Kathleen MD [address] [place] [address] Assigned Surgical Provider 10/21/20
--- OUTSIDE RECORDS SUMMARY | 2024-09-16 12:31 | XMS_ITS | Encounter Summary ---
Author Organization [facility] Address [address] [place] [address] Care Team Providers Care Arch Support Maker Name Role Phone Vick Espinoza MD Primary Care Provider Cleopatra Velazquez MD Unavailable [phone] Neeru Kathleen MD Unavailable Neeru Kathleen MD Unavailable Cleopatra Velazquez MD Unavailable Neeru Kathleen MD Unavailable Encounter Details Date Type Department Care Team (Late st Contact Info) Description 01/10/2013 Office Visit-P INTERFACE [facility] DEPT Unknown, Provider Social History Tobacco Use Types Packs/Day Years Used Date Smoking Tobacco: Never Assessed Sex and Gender Information Value Date Recorded Sex Assigned at Not on file Legal Sex Male 4:02 AM NURSE COORDINATOR Gender Identity Not on file Sexual Orientation Not on file documented as of this encounter Progress Notes * Unknown, Provider - 01/10/2013 10:30 AM CDT Sleeve Setter: Shantel Boothe Status: Final Encounter: 2013-01-10 10:30:00.000 Type: Rooming Note Reason For Visit VIRGILIO MCCAULEY is a 77 year old male being seen in clinic for fu S/p Yag LE Do you have any other appointments, tests or procedures within the [facility] system for this same day? No. Pain [...] By: Shantel Boothe ; 01/10/2013 10:40 AM NURSE COORDINATOR. documented in this encounter Plan of Treatment Upcoming Encounters Date Type Department Care Team (Late st Contact Info) Description 01/24/2025 1:10 PM CDT Office Visit [facility] [address] [place] [address] Neeru Kathleen MD [address] [place] [address] [phone] documented as of this encounter Visit Diagnoses Not on filedocumented in this encounter Care Teams Arch Support Maker Relationship Specialty Start Date End Date Vick Espinoza MD PCP - General Family Practice 09/15/14 Cleopatra Velazquez MD [address] [place] [address] [address] [place] [address] Ophthalmology 10/10/15 Neeru Kathleen MD [address] [place] [id number] Ophthalmology 12/14/17 Neeru Kathleen MD [address] 218[address] [place] [address] Assigned Surgical Provider 08/03/20 Cleopatra Velazquez MD [address] [place] [address] [phone] Assigned Surgical Provider 08/26/2010/20/20 Neeru Kathleen MD [address] 218[address] [place], [place] [phone] Assigned Surgical Provider 10/21/20 documented as of this encounter
--- OUTSIDE RECORDS SUMMARY | 2024-09-16 12:31 | XMS_ITS | Referral Summary ---
Author Organization [employer] Address [address] [place] [address] Care Team Providers Care Applications Engineer Manufacturing Name Role Phone Vick Espinoza MD Primary Care Provider [phone] Cleopatra Velazquez MD Unavailable Neeru Kathleen MD Unavailable Neeru Kathleen MD Unavailable [phone] Allergies No known active allergies Medications SIMVASTATIN [...] on file Legal Sex Male 4:02 AM EXHIBIT DISPLAY REPRESENTATIVE Gender Identity Not on file Sexual Orientation Not on file Plan of Treatment Upcoming Encounters Date Type Department Care Team (Late st Contact Info) Description 01/24/2025 1:10 PM CDT Office Visit [facility] [address] [facility] [address] [place] [address] Neeru Kathleen MD [address] [place] [address] [address] [place] [address] [place] [address] [facility] MEDICARE ADVANTAGE Care Teams Applications Engineer Manufacturing Relationship Specialty Start Date End Date Vick Espinoza MD PCP - General Family Practice 09/15/14 Cleopatra Velazquez MD [address] [place] [address] [address] [place], [place] [phone] Ophthalmology 10/10/15 Neeru Kathleen MD [address] [place] [address] [phone] Ophthalmology 12/14/17 Neeru Kathleen MD [address] [place] [address] [phone] Assigned Surgical Provider 10/21/20
--- NOTE | 2024-09-16 13:00 | CRLHL7_ITS ---
For Patients: As a result of the Century Cures Act, medical imaging exams and procedure reports are released immediately into your electronic medical record. You may view this report before your referring provider. If you have questions, please contact your health care provider. INDICATION: Dementia TECHNIQUE: Noncontrast Sagittal T1,Axial FSE T2, Flair, SWI, DWI images submitted. No comparisons. FINDINGS: Moderate cerebral atrophy. The ventricles, sulci and gyri are of normal size, shape and contour for age and degree of atrophy. Midline structures are centrally located. No convincing evidence of suspicious intra- or extra-axial fluid collections. Mild patchy regions of increased T2 signal within the periventricular and subcortical white matter of both cerebral hemispheres. No regions of restricted diffusion. There is a 5 millimeter focus of susceptibility within the white matter of the right posterior frontal lobe that may represent residua from distant micro hemorrhage. Punctate focus of susceptibility in the posterior right temporal lobe may also represent a secondary site of chronic microhemorrhage. IMPRESSION: 1. No radiographic evidence of acute intracranial abnormalities. 2. Moderate cerebral atrophy. 3. Mild supratentorial white matter changes that are non-specific, but statistically most likely related to chronic small vessel ischemic disease. 4. Two foci of susceptibility within the right cerebral hemisphere likely representing residua from chronic microhemorrhages. Dictated by Dylon Banks MD @ 09/16/2024 1:36:23 PM (Electronically Signed)
== END 2024-09-16 12:30 | disposition home or self-care (01) ==
LOC: MRI 12:30
PROVIDERS: PCP Family Medicine; Visit Provider Family Medicine
DX: F03.90 Unspecified dementia, unspecified severity, without behavioral disturbance, psychotic disturbance, mood disturbance, and anxiety (principal); G31.9 Degenerative disease of nervous system, unspecified
CPT/HCPCS: 70551

== ENCOUNTER 2024-09-29 14:40 | Emergency (ER) | payer MEDICARE, SELFPAY ==
[2024-09-29 14:48] VITALS: BP 145/86; PULSE 85; RESP 16; TEMP 36.7; O2SAT 95
[2024-09-29 15:10] LABS: Appearance Urine Clear (Clear); Bilirubin Urine Negative (Negative); Blood Urine Trace-intact (Negative); Color Urine Yellow (Yellow); Glucose Urine Negative (Negative); Ketones Urine Negative (Negative); Leukocyte Esterase Urine Negative (Negative); Nitrite Urine Negative (Negative); Protein Urine 2+ (Negative); Specific Gravity Urine 1.025 (1.000-1.030)
[2024-09-29 15:16] LABS: Bacteria Urine Few; RBC Urine 0-2 (0-2); WBC Urine 0-2 (0-5)
--- NOTE | 2024-09-29 16:27 | CRLHL7_ITS ---
For Patients: As a result of the Century Cures Act, medical imaging exams and procedure reports are released immediately into your electronic medical record. You may view this report before your referring provider. If you have questions, please contact your health care provider. Indication : Worsening confusion. Technique : CT of the brain without intravenous contrast. Comparison: CT head 09/16/2024 Findings: No acute blurring of the holliday-white differentiation. There is no intracranial hemorrhage. The ventricles are proportionate to the cerebral sulci. The 4th ventricle is midline. Basal cisterns appear patent. No abnormal extra-axial fluid collection identified. Mild parenchymal volume loss. There is moderate patchy periventricular hypodensity, favored to represent chronic ischemic microvascular disease. There is no intracranial mass, mass effect or midline shift identified. Scattered intracranial atherosclerotic disease. No depressed calvarial fracture. Impression: 1. No acute intracranial process. 2. Moderate chronic ischemic microvascular disease. Please note that all CT scans at this facility use dose modulation, iterative reconstruction, and/or weight-based dosing when appropriate to reduce radiation dose to as low as reasonably achievable. Dictated by Ronak Kapadia MD @ 09/29/2024 5:16:12 PM (Electronically Signed)
[2024-09-29 16:45] LABS: Basophils Absolute Auto 0.02 K/uL (0.00-0.30); Basophils Percent Auto 0.3 % (0.0-3.0); Eosinophils Absolute Auto 0.05 K/uL (0.00-0.50); Eosinophils Percent Auto 0.7 % (0.0-7.0); Hematocrit 44.8 % (37.0-53.0); Hemoglobin* 14.6 gm/dL (13.5-17.5); Immature Granulocytes Abs Auto 0.03 K/uL (0.00-0.30); Immature Granulocytes Pct Auto 0.4 %; Lymphocytes Percent Auto 17.6 % (20-44); Mean Corpuscular HGB Conc 33 gm/dL (32-36); Mean Corpuscular Hemoglobin 31 pg (26-34); Mean Corpuscular Volume 94 fL (80-100); Monocytes Percent Auto 16.3 % (0.0-11.0); Neutrophils Percent Auto 64.7 % (42.0-72.0); Platelet Count* 219 K/uL (140-440); RDW Coefficient of Variation % 14.1 % (11.5-15.5); Red Blood Count 4.77 m/uL (4.30-5.90); White Blood Count* 6.81 K/uL (4.50-11.00)
[2024-09-29 17:03] LABS: Slide Review Reflex No
--- NOTE | 2024-09-29 17:41 | ED_ITS ---
HPI - General Adult General Date Seen: 09/29/24 Chief complaint: Urogenital Problems, Male Stated complaint: Poss UTI, unstable on feet, altered mental status Time Seen by Provider: 09/29/24 15:50 Source: patient, family, RN notes reviewed and old records reviewed Mode of arrival: ambulatory Limitations: no limitations History of Present Illness HPI narrative: Patient is an 89-year-old male with diabetes, dementia presenting to the emergency department for increased confusion and memory issues along with some balance problems. They have noticed the patient has been having increased co nfusion over the past few weeks but seems of gotten worst day. Nursing staff at his independent living states the patient came down to the lobby complaining about back pain and he was needing a walker to move around when typically he does not. When he was reassessed in his apartment he then denied having any back pain. They noticed that bed gym smelled strongly for some fall over. They also notice in MP medication brand planner and unsure if he is taking his medication correctly. For given started repeating his stories and again notice the resident's note of body order, urine and had staying sinus pain it is. He overall looked disheveled which is abnormal for this patient. His has not noticed too much confusion for the patient but his daughter states he seems to be getting confused more frequently. Right now seems to be at his baseline. He continues to walk up steps despite his daughter telling him not to. He recently had a primary care visit which states the patient has dementia based on the chart review. Also or recent MRI showing microangiopathic changes. Patient denies chest pain, shortness of breath, lightheadedness, dizziness, weakness. No other concerns noted Related Data Home Medications ?Medication ?Instructions ?Recorded ?Confirmed Diabetic Test Strips 07/02/22 08/17/24 aspirin 81 mg tablet,delayed 81 mg PO QDAY 07/02/22 08/17/24 release latanoprost 0.005 % eye drops 1 drp ophthalmic (eye) QDAY 07/02/22 08/17/24 multivitamin 1 tab PO QDAY 07/02/22 08/17/24 Previous Rx's ?Medication ?Instructions ?Recorded blood sugar diagnostic (Contour #100 ea 06/02/22 Next Test Strips) propylthiouracil 50 mg tablet 50 mg PO BID #180 tabs 01/20/24 amlodipine 2.5 mg tablet 2.5 mg PO DAILY #90 tabs 02/08/24 finasteride 5 mg tablet 5 mg PO DAILY #90 tabs 02/08/24 hydrochlorothiazide 25 mg tablet See Rx Instructions .Route 02/08/24 .COMPLEX #90 tabs lisinopril 40 mg tablet See Rx Instructions .Route 02/08/24 .COMPLEX #90 tabs metformin 1,000 mg tablet See Rx Instructions .Route 02/08/24 .COMPLEX #180 tabs simvastatin 20 mg tablet See Rx Instructions .Route 02/08/24 .COMPLEX #90 tabs tadalafil 20 mg tablet 20 mg PO .As Needed PRN sexual 02/08/24 activity #7 tabs tamsulosin 0.4 mg capsule See Rx Instructions .Route 02/08/24 .COMPLEX #90 caps alendronate 70 mg tablet 70 mg PO QWEEK #4 tabs 06/24/24 Allergies Allergy/AdvReac Type Severity Reaction Status Date / Time No Known Allergies Allergy Verified 09/29/24 18:28 Review of Systems Status of ROS: Reports: 10 or more systems reviewed and unremarkable except as noted in History and below PFSH [facility] Medical History COVID-19 ?U07.1 - COVID-19 (ICD-10) H/O retinal detachment ?Z86.69 - Personal history of other diseases of the nervous system and sense organs (ICD-10) Surgical History Status post eye surgery ?Z98.890 - Other specified postprocedural states (ICD-10) H/O parotidectomy ?Z90.49 - Acquired absence of other specified parts of digestive tract (ICD- 10) Status post tonsillectomy and adenoidectomy ?Z90.89 - Acquired absence of other organs (ICD-10) Status post cataract extraction ?Z98.49 - Cataract extraction status, unspecified eye (ICD-10) Social History Narrative: Hx Tobacco use quit age 36. Hx cigars and pipe Smoking Status: Former smoker What tobacco products do you use: cigars and pipe Do you use any of these nicotine containing products: None Second hand tobacco smoke exposure: No How often do you have a drink containing alcohol: monthly or less AUDIT-C Alcohol total score: 1 Non-prescribed substance use: denies use service: Yes Exam Narrative: Exam Narrative: Const: Well-nourished, Well-developed, in no distress Eyes: PERRL, no conjunctival injection, and symmetrical lids HENT: Atraumatic external nose and ears. Moist mucous membranes. Neck: Symmetric, trachea midline, No thyromegaly. CVS: RRR, No murmurs or gallops. Peripheral pulses 2+ and equal in all extremities RESP: Unlabored respiratory effort. Clear to auscultation bilaterally. GI: Nontender/Nondistended, No rebound or guarding. MSK:Extremities w/o deformity, Normal Active ROM Skin: Warm, Dry. No rashes or lesions. Neuro: Normal Muscle tone, No focal neurological deficits. Psych: Awake, Alert, & Oriented x3. Appropriate mood and affect. Const: Vital Signs, click to edit/add: Vital Signs - 24 hr 09/29/24 14:48 09/29/24 19:40 Temperature 98.0 F Pulse Rate [Pulse Oximeter] 85 86 Respiratory Rate 16 18 Blood Pressure [Ri ght Upper Arm] 145/86 H Pulse Oximetry 95 98 Oxygen Delivery Me thod Room Air Course Vital Signs Vital signs: Initial Vital Signs Temperature 98.0 F 09/29/24 14:48 Temperature Source Temporal Artery Scan 09/29/24 14:48 Pulse Rate 85 09/29/24 14:48 Respiratory Rate 16 09/29/24 14:48 Blood Pressure 145/86 H 09/29/24 14:48 Blood Pressure Mean 105 09/29/24 14:48 Blood Pressure Position Sitting 09/29/24 14:48 Pulse Oximetry 95 09/29/24 14:48 Oxygen Delivery Method Room Air 09/29/24 14:48 Vital Signs Temperature 98.0 F 09/29/24 14:48 Pulse Rate 85 09/29/24 14:48 Respiratory Rate 16 09/29/24 14:48 Blood Pressure 145/86 H 09/29/24 14:48 Pulse Oximetry 95 09/29/24 14:48 Oxygen Delivery Method Room Air 09/29/24 14:48 Temperature 98.0 F 09/29/24 14:48 Pulse Rate 86 12/19/24 19:40 Respiratory Rate 18 09/29/24 19:40 Blood Pressure 145/86 H 09/29/24 14:48 Pulse Oximetry 98 09/29/24 19:40 Oxygen Delivery Method Room Air 09/29/24 14:48 Medications Administered Medications: Discontinued Medications Generic Name Dose Route Start Last Admin Trade Name Kaila PRN Reason Stop Dose Admin Ketorolac Tromethamine 15 mg 09/29/24 18:07 09/29/24 18:24 Ketorolac 15 Mg/Ml Inj IVP 09/29/24 18:08 15 mg ONCE ONE Administration Medical Decision Making MDM Narrative Medical decision making narrative: Patient is an 89-year-old male presenting to emergency department with family for increased confusion. Going through his records it does sound like he has been diagnosed with dementia in the past. This is a recent diagnosis. This could all be just progression of his dementia by will do a CT scan as he does sound like he might be having some incontinence and ataxia which could be rel ated to normal pressure hydrocephalus. Unlikely to be a brain tumor as he recently had MRI. Will also order CBC, BMP, magnesium, urinalysis. Family refused COVID/flu/RSV swab Imaging and lab work returned showing no concerning abnormality. No signs of infection in the urine. CT scan of the head reviewed by myself the radiologist shows no acute concerning abnormalities. His symptoms may all be related to progression of his dementia. For this aspect he should be follow-up with Neurology. He did start complaining about left groin pain. His daughter states he has complained about a couple times throughout the day especially after he coughs. He has no complaint about twice while in the emergency department. When I evaluated it he does appear to have a large left inguinal hernia. It is firm to the touch and tender. There is concern for strangulation worsening incarceration. I do not see any overlying skin issues. Will place him in Trendelenburg position and place ice on the area along with doing a CT scan with IV contrast for better evaluation. CT scan returned showing prostatomegaly and a left inguinal hernia defect containing loops of nonobstructing descending colon and small amount of free fluid. No signs of obstruction, pneumatosis intestinalis, portal venous gas or pneumoperitoneum. This is a reassuring CT scan I feel comfortable trying to reduce the area. Was able to reduce most of the hernia he states his pain is significantly improved. I did inform him and his family to have close follow-up with the primary care provider general surgery. They are agreeable to this plan. Lab Data Labs: Lab Results 09/29/24 09/29/24 Range/Units 15:07 16:37 WBC 6.81 (4.50-11.00) K/uL RBC 4.77 (4.30-5.90) m/uL Hgb 14.6 (13.5-17.5) gm/dL Hct 44.8 (37.0-53.0) % MCV 94 (80-100) fL MCH 31 (26-34) pg MCHC 33 (32-36) gm/dL RDW Coeff of Shaw 14.1 (11.5-15.5) % Plt Count 219 (140-440) K/uL Neut % (Auto) 64.7 (42.0-72.0) % Lymph % (Auto) 17.6 L (20-44) % Becker % (Auto) 16.3 H (0.0-11.0) % Eos % (Auto) 0.7 (0.0-7.0) % Baso % (Auto) 0.3 (0.0-3.0) % Neut # (Auto) 4.40 (1.7-7.0) K/uL Lymph # (Auto) 1.20 (0.90-2.90) K/uL Becker # (Auto) 1.10 H (0.00-0.90) K/UL Eos # (Auto) 0.05 (0.00-0.50) K/uL Baso # (Auto) 0.02 (0.00-0.30) K/uL Abs Immat Gran (auto) 0.03 (0.00-0.30) K/uL Imm/Tot Granulo (auto) 0.4 % Sodium 139 (135-149) mmol/L Potassium 4.3 (3.6-5.1) mmol/L Chloride 101 (96-114) mmol/L Carbon Dioxide 28 (20-32) mmol/L Anion Gap 10 (7-15) mEq/L BUN 17 (7-30) mg/dL Creatinine 1.2 (0.5-1.5) mg/dL Estimated GFR 58 ml/min Glucose 163 H (60-115) mg/dL Calcium 11.1 H (8.4-10.6) mg/dL Magnesium 2.3 (1.5-2.6) mg/dL Urine Color Yellow (Yellow) Urine Appearance Clear (Clear) Urine pH 6.0 (5.0-8.5) Ur Specific Waban 1.025 (1.000-1.030) Urine Protein 2+ A (Negative) Urine Glucose (UA) Negative (Negative) Urine Ketones Negative (Negative) Urine Blood Trace-intact A (Negative) Urine Nitrite Negative (Negative) Urine Bilirubin Negative (Negative) Urine Urobilinogen 1.0 (0.2-1.0) Ur Leukocyte Esterase Negative (Negative) Urine RBC 0-2 (0-2) Urine WBC 0-2 (0-5) Ur Squamous Epith Cells None (None-Few) Urine Bacteria Few A (None) Imaging Data CT scan head: Attestation: I have reviewed the pertinent imaging results. Radiologist's impression: 1. No acute intracranial process. 2. Moderate chronic ischemic microvascular disease. Please note that all CT scans at this facility use dose modulation, iterative reconstruction, and/or weight-based dosing when appropriate to reduce radiation dose to as low as reasonably achievable. Dictated by Ronak Kapadia MD @ 09/29/2024 5:16:[address] scan abdomen and pelvis: Attestation: I have reviewed the pertinent imaging results. Radiologist's impression: 1. Left inguinal hernia defect containing loops of nonobstructed descending colon and a small amount of free fluid. No pneumatosis intestinalis, portal venous gas or pneumoperitoneum. 2. Sigmoid diverticulosis without CT evidence of acute diverticulitis. 3. Marked prostatomegaly. 4. Dense coronary arterial calcifications. Advise correlation with ASCVD evaluation. Please note that all CT scans at this facility use dose modulation, iterative reconstruction, and/or weight-based dosing when appropriate to reduce radiation dose to as low as reasonably achievable. Dictated by Isidro Lion MD @ 09/29/2024 7:17:14 PM Discharge Plan Discharge Clinical Impression: Hernia Patient Disposition: Home w/ Parent or Adult Condition: Stable Instructions: Inguinal Hernia (ED) Additional Instructions: Looking at his previous records he does have mild dementia. These episodes of confusion and forgetfulness are likely symptoms from the dementia. He should follow-up with a neurologist. He also has a left inguinal hernia. Also able to reduce it here in the emergency department. It is important he has close follow-up with his primary care provider and general surgery. Unsure if they would want to treat this with surgery considering his age. Return to emergency department if he develops worsening pain again or if the hernia becomes hard and painful to the touch. Take Tylenol and ibuprofen as needed for pain Prescriptions: No Action amlodipine 2.5 mg tablet 2.5 mg PO DAILY Qty: 90 3RF finasteride 5 mg tablet 5 mg PO DAILY Qty: 90 3RF hydrochlorothiazide 25 mg tablet See Rx Instructions .ROUTE .COMPLEX Qty: 90 3RF Dose Instruction: TAKE 1 TABLET BY MOUTH EVERY DAY Rx Instructions: TAKE 1 TABLET BY MOUTH EVERY DAY lisinopril 40 mg tablet See Rx Instructions .ROUTE .COMPLEX Qty: 90 3RF Dose Instruction: TAKE 1 TABLET BY MOUTH EVERY DAY Rx Instructions: TAKE 1 TABLET BY MOUTH EVERY DAY metformin 1,000 mg tablet See Rx Instructions .ROUTE .COMPLEX Qty: 180 3RF Dose Instruction: TAKE ONE TABLET BY MOUTH TWICE DAILY WITH MEALS Rx Instructions: TAKE ONE TABLET BY MOUTH TWICE DAILY WITH MEALS simvastatin 20 mg tablet See Rx Instructions .ROUTE .COMPLEX Qty: 90 3RF Dose Instruction: TAKE 1 TABLET BY MOUTH AT BEDTIME Rx Instructions: TAKE 1 TABLET BY MOUTH AT BEDTIME tamsulosin 0.4 mg capsule See Rx Instructions .ROUTE .COMPLEX Qty: 90 3RF Dose Instruction: TAKE 1 CAPSULE BY MOUTH EVERY DAY Rx Instructions: TAKE 1 CAPSULE BY MOUTH EVERY DAY tadalafil 20 mg tablet 20 mg PO .As Needed PRN (Reason: sexual activity) Qty: 7 2RF Rx Instructions: TAKE ONE TABLET 30 MIN TO 36 HRS PRIOR TO INTERCOURSE (DME) Diabetic Test Strips Misc See Rx Instructions .Route Rx Instructions: As directed multivitamin Tablet 1 tab PO QDAY latanoprost 0.005 % drops 1 drp ophthalmic (eye) QDAY aspirin 81 mg tablet,delayed release (DR/EC) 81 mg PO QDAY (DME) Contour Next Test Strips Strip See Rx Instructions .Route Qty: 100 5RF Rx Instructions: TEST ONCE DAILY. propylthiouracil 50 mg tablet 50 mg PO BID Qty: 180 3RF alendronate 70 mg tablet 70 mg PO QWEEK Qty: 4 11RF Follow Up/Referrals: Tre Espinoza MD [Primary Care Provider] - Stand Alone Forms: [facility] Info Instructions
[2024-09-29 17:46] LABS: Chloride* 101 mmol/L (96-114); Potassium* 4.3 mmol/L (3.6-5.1); Sodium* 139 mmol/L (135-149)
[2024-09-29 17:48] LABS: Creatinine* 1.2 mg/dL (0.5-1.5); Estimated Glomerular Filt Rate 58 ml/min
[2024-09-29 17:49] LABS: Anion Gap 10 mEq/L (7-15); Blood Urea Nitrogen* 17 mg/dL (7-30); Calcium* 11.1 mg/dL (8.4-10.6); Carbon Dioxide* 28 mmol/L (20-32); Glucose* 163 mg/dL (60-115); Magnesium* 2.3 mg/dL (1.5-2.6)
--- NOTE | 2024-09-29 18:04 | CRLHL7_ITS ---
For Patients: As a result of the Century Cures Act, medical imaging exams and procedure reports are released immediately into your electronic medical record. You may view this report before your referring provider. If you have questions, please contact your health care provider. INDICATION: Abdominal pain. TECHNIQUE: Multiplanar CT examination of the abdomen and pelvis was performed after the administration of 85 mL Isovue 370 intravenous contrast. COMPARISON: CT pelvis 05/23/2024. FINDINGS: Lower chest: No focal consolidation. Normal heart size. No pleural effusions or pneumothorax. Linear band like opacification of the lungs bilaterally, likely subsegmental atelectasis and/or scarring. Dense coronary arterial calcifications. Liver: Unremarkable. Gallbladder: Mildly distended gallbladder without cholelithiasis, gallbladder wall thickening or pericholecystic edema. Biliary: Unremarkable. Pancreas: Within normal limits. Spleen: Unremarkable. Adrenal glands: Unremarkable. Renal/ureters/bladder: Normal in size and symmetrically enhancing. No obstructive uropathy. No hydronephrosis or obstructive urinary calculi. Simple appearing renal cysts bilaterally. The ureters appear unremarkable. The bladder is within normal limits. Pelvis: Markedly enlarged prostate. Gastrointestinal: There is herniation of loops of nonobstructed descending colon through a left inguinal hernia defect. No bowel obstruction. No pneumatosis intestinalis. Normal appendix. Sigmoid colonic diverticulosis without colonic wall thickening or pericolonic fat stranding. Mild colonic stool burden. Vasculature: No aortic aneurysm. The portal vein remains patent. Severe atherosclerotic calcifications. No portal venous gas. Lymph nodes: No pathologic lymphadenopathy by size criteria. Peritoneum: No free fluid or pneumoperitoneum. No drainable fluid collections. Abdominal wall/soft tissues: Left inguinal hernia defect containing loops of nonobstructed descending colon and a small amount of free fluid. Bones: No acute osseous abnormalities. Paget`s disease of the right iliac, grossly unchanged since prior CT of the pelvis from 05/23/2024. Multilevel degenerative changes of the thoracolumbar spine. IMPRESSION: 1. Left inguinal hernia defect containing loops of nonobstructed descending colon and a small amount of free fluid. No pneumatosis intestinalis, portal venous gas or pneumoperitoneum. 2. Sigmoid diverticulosis without CT evidence of acute diverticulitis. 3. Marked prostatomegaly. 4. Dense coronary arterial calcifications. Advise correlation with ASCVD evaluation. Please note that all CT scans at this facility use dose modulation, iterative reconstruction, and/or weight-based dosing when appropriate to reduce radiation dose to as low as reasonably achievable. Dictated by Isidro Lion MD @ 09/29/2024 7:17:14 PM (Electronically Signed)
[2024-09-29] MEDS: KETOROLAC 15 MG/ML inj IVP (18:24)
[2024-09-29 19:40] VITALS: PULSE 86; RESP 18; O2SAT 98
== END 2024-09-29 20:23 | disposition home or self-care (01) ==
PROVIDERS: Emergency Provider Student in an Organized Health Care Education/Training Program; PCP Family Medicine
DX: K40.90 Unilateral inguinal hernia, without obstruction or gangrene, not specified as recurrent (principal); R41.0 Disorientation, unspecified
CPT/HCPCS: 36415; 70450; 74177; 80048; 81001; 83735; 85025; 87086; 87631; 96374; 99284; J1885; Q9967

== ENCOUNTER 2024-10-31 06:55 | Day surgery (SDC) | payer MEDICARE, SELFPAY ==
[2024-10-31] VITALS (13 sets, daily range): BP systolic 112–157; BP diastolic 61–93; PULSE 60–86; RESP 16–19; TEMP 36.1–36.7; O2SAT 94–99; BMI 24.0
--- OUTSIDE RECORDS SUMMARY | 2024-10-31 07:03 | XMS_ITS | Clinical Summary ---
Author Organization [facility] Address [address] 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 Gender Identity Not on file Sexual Orientation Not on file Plan of Treatment Upcoming Encounters Date Type Department Care Team (Late st Contact Info) Description 01/24/2025 1:10 PM CDT Office Visit [facility] [place] [id number] [facility] [address] [place] [address] Neeru Kathleen MD [address] [place] [address] [address] [place] [address] Health Maintenance Due Date Last Done Comments [...] IMMUNIZATION Completed 06/26/2019, 04/07/2019, 09/25/2010 Pneumococcal Vaccine: 50+ Years Completed 08/23/2021, 01/24/2015 HPV IMMUNIZATION Aged Out No longer e ligible based on patient's age to complete this topic MENINGITIS IMMUNIZATION Aged Out No l onger eligible based on patient's age to complete this topic RSV MONOCLONAL ANTIBODY Aged Out No l onger eligible based on patient's age to complete this topic Insurance MEDICARE ADVANTAGE MEDICARE ADVANTAGE Care Teams Assistant Chief Nursing Officer Relationship Specialty Start Date End Date Vick Espinoza MD PCP - General Family Practice 09/15/14 Cleopatra Velazquez MD [address] [place] [address] Ophthalmology 10/10/15 Neeru Kathleen MD [address] [place] [address] Ophthalmology 12/14/17 Neeru Kathleen MD [address] [place] [address] Assigned Surgical Provider 10/21/20
--- OUTSIDE RECORDS SUMMARY | 2024-10-31 07:03 | XMS_ITS | Referral Summary ---
Author Organization [facility] Address [address] 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 Gender Identity Not on file Sexual Orientation Not on file Plan of Treatment Upcoming Encounters Date Type Department Care Team (Late st Contact Info) Description 01/24/2025 1:10 PM CDT Office Visit [facility] Eye [facility] [address] [facility] [address] [facility] [address] [place] [address] Neeru Kathleen MD [address] [place] [address] [address] [place] [address] Insurance MEDICARE ADVANTAGE [facility] MEDICARE ADVANTAGE Care Teams Mandarin Tutor Relationship Specialty Start Date End Date Vick Espinoza MD PCP - General Family Practice 09/15/14 Cleopatra Velazquez MD [address] [place] [address] [address] [place], [place] [address] Ophthalmology 10/10/15 Neeru Kathleen MD [address] [place] [address] [phone] Ophthalmology 12/14/17 Neeru Kathleen MD [address] [place] [address] [phone] Assigned Surgical Provider 10/21/20
--- OUTSIDE RECORDS SUMMARY | 2024-10-31 07:03 | XMS_ITS | Encounter Summary ---
Author Organization [facility] Address [address] [place] [address] Care Team Providers Care Nursing Admin Name Role Phone Vick Espinoza MD Primary Care Provider Cleopatra Velazquez MD Unavailable Neeru Kathleen MD Unavailable [phone] Neeru Kathleen MD Unavailable Cleopatra Velazquez MD Unavailable Neeru Kathleen MD Unavailable Encounter Details Date Type Department Care Team (Late st Contact Info) Description 01/10/2013 Office Visit-P INTERFACE [facility] DEPT Unknown, Provider Social History Tobacco Use Types Packs/Day Years Used Date Smoking Tobacco: Never Assessed Sex and Gender Information Value Date Recorded Sex Assigned at Not on file 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 No. Pain [...] By: Shantel Boothe ; 01/10/2013 10:40 AM MEASURER. documented in this encounter Plan of Treatment Upcoming Encounters Date Type Department Care Team (Late st Contact Info) Description 01/24/2025 1:10 PM CDT Office Visit [facility] Eye [address] [place] [address] Neeru Kathleen MD [address] [place] [address] [phone] documented as of this encounter Visit Diagnoses Not on filedocumented in this encounter Care Teams Nursing Admin Relationship Specialty Start Date End Date Vick Espinoza MD PCP - General Family Practice 09/15/14 Cleopatra Velazquez MD [address] [place] [address] [address] [place] [address] Ophthalmology 10/10/15 Neeru Kathleen MD [address] [place] [address] Ophthalmology 12/14/17 Neeru Kathleen MD [address] [place] [address] Assigned Surgical Provider 08/03/20 Cleopatra Velazquez MD [address] [place] [address] [phone] Assigned Surgical Provider 08/26/2010/20/20 Neeru Kathleen MD [address] [place], [place] [phone] Assigned Surgical Provider 10/21/20 documented as of this encounter
--- OUTSIDE RECORDS SUMMARY | 2024-10-31 07:03 | XMS_ITS | Continuity of Care Document ---
Author Name [email or web address] Address Unknown Organization Unknown Address Unknown Procedures FILTER APPLIED:Only known Procedures with Onset Date within the last 5 years Procedure Date Procedure Provider Additiona l Information Status METABOLIC PANEL TOTAL CA (41096) Completed ASSAY THYROID STIM HORMONE (34438) Completed HEMOGLOBIN GLYCOSYLATED A1C (25520) Completed LIPID PANEL (02317) Comp leted HEMOGLOBIN GLYCOSYLATED A1C (68477) Completed ASSAY THYROID STIM HORMONE (36173) Completed Encounters FILTER APPLIED:Only known Encounters with Admission Date within the last 5 years Encounter Location Admission Discharge Billing Code Kitchen Runner Brianne lopez Outpatient [facility] Outpatient [facility] Outpatient [facility] Outpatient Joans Espinoza
[2024-10-31] MEDS: LACTATED RINGERS 1000 ML 1,000 ML 100 ML IV (08:05)
[2024-10-31] MEDS: SODIUM CHLORIDE 0.9 % (FLUSH) 10 ML SYRINGE IVF (08:17)
--- NOTE | 2024-10-31 08:18 | SUR.PREOP ---
patient flagged high risk on violence assessment d/t dementia. Else (pharmacist in charge) notified.
--- NOTE | 2024-10-31 08:36 | W.PM.H&PU ---
History & Physical Update History & Physical Update H&P Reviewed and patient assessed: The following changes are noted below H&P Updates: Patient presents today for open left inguinal hernia repair. Patient has moved into assisted living. Daughters are concerned about the level care he may need postoperatively. I explained that it would be unusual for him to need transitional care postop. My biggest concern for him is delirium from anesthesia and medication. Discussed with Anesthesia. We will plan for spinal anesthetic with light sedation. Will use long-acting local anesthetic as well as Tylenol for pain control and avoid opioids if possible except for severe pain. Will see how patient does after surgery and if he needs to stay overnight for observation.
--- NOTE | 2024-10-31 08:37 | P.GSOP_ITS ---
Operative Note Date of procedure: 10/31/24 Pre-op diagnosis: Incarcerated Left inguinal hernia Post-op diagnosis: Same Type of Procedure: Open repair of left inguinal hernia with mesh Indications: The patient is an 89-year-old male who presented to the emergency department recently with a left inguinal hernia. He does have a history of worsening dementia and the symptoms that brought him in were confusion and issues with his balance, however a large bowel-containing hernia was found. Per report it was able to be reduced and the patient was discharged home for clinic follow-up. When he was seen in clinic, his hernia was noted to be quite large and non reducible. The patient was noted to have a history of constipation and given t he large nature of his hernia and possible obstructive symptoms, I did recommend repair and the patient and his family agreed to proceed. Procedure Description: After discussing the risks and benefits of the procedure, the patient signed informed consent.? The operative site was marked and the patient was brought to the operating room. A spinal anesthetic was then administered. Please see anesthesia's note for details. The patient was then placed on the operating table in supine position.? Care was taken to pad the patient's pressure points.? ? The patient was then given sedation by anesthesia.?? The operative site was then prepped and draped in the usual sterile fashion.? A time-out was then performed. An oblique incision was made over the approximate area of external ring. Dissection was carried down into the subcutaneous tissue using cautery until the external oblique fascia was encountered. This was cleared off. The hernia was incarcerated and the area of the external ring was identified. The external oblique was incised using a knife away from the external ring. This was extended using the Metzenbaum scissors with care to dissect the underlying cord structures away from the fascia before cutting. The tissue was cleared from the inside of the inguinal canal and mosquitos were used to retract the external oblique. The hernia sac and cord structures were bluntly dissected from the inside of the inguinal canal. During this dissection I was then able to reduce the tissue inside the hernia into the abdomen. The cord structures were then looped with a Bharath drain. An indirect inguinal hernia was identified. The hernia sac was dissected off of the cord structures. There was a small herniation of preperitoneal fat which was carefully picked through to ensure no intra-abdominal structures were contained within. This was then ligated and discarded. The cord itself was noted to be quite fatty proximally. A portion of this fat was carefully excised with care to avoid injury to the spermatic cord vessels. The sac was then opened and examined to ensure no intra-abdominal structures were attached within as a sliding hernia. There were none. The sac was then ligated and the proximal end reduced into the abdomen. A piece of polypropylene mesh was obtained and cut to size. This was secured to the pubic tubercle using to 0 Prolene on a double-armed suture. The Prolene was run along the inguinal ligament inferiorly and along the transversalis fascia superiorly, securing the tails around the cord and re-creating the internal ring. The ring was just large enough to permit my fingertip. The wound was examined for hemostasis which was found to be excellent. Of note, the ileal inguinal nerve was not identified during the dissection nor during the a fixation of the mesh. The external oblique fascia was then reapproximated with absorbable suture. 0.5% Marcaine with Exparel was then injected into the muscle, fascia and skin and subcutaneous tissue. The wound was then closed in layers including Caitlin's fascia and the dermis with absorbable suture. The skin was then closed with a running subcut icular suture. Sterile dressings were applied. At the end of the case, the scrotum was examined and both testicles were present within. Instrument, sponge, and needle counts were correct at the end of the case. The patient was woken and taken to the PACU in stable condition. ? The patient tolerated the procedure well. Findings: Large incarcerated left inguinal hernia Anesthesia: spinal Surgeon: Nabila Barker MD Estimated blood loss (mL): 5 Condition: stable Disposition: PACU
[2024-10-31] MEDS: CEFAZOLIN 1 GM inj IVP (09:30)
[2024-10-31] MEDS: BUPIVACAINE LIPOSOME 133 MG/10 ML INJ INFILTRATI (10:40)
[2024-10-31] MEDS: BUPIVACAINE 0.25% 30 ML 10 ML INJECTION (10:40)
--- NOTE | 2024-10-31 11:00 | P.ANES_ITS ---
Anesthesia Charges Start Date/Time Anesthesia Start Date: 10/31/24 Anesthesia Start Time: 09:13 Stop Date/Time Anesthesia Stop Date: 10/31/24 Anesthesia Stop Time: 11:00 Summary Extremes of Age - Over 70 or under 1: FIRST BEATER Coding CPT Codes CPT Codes: ANESTH REPAIR OF HERNIA - 61715 ([id number]) P3 - PATIENT W/SEVERE SYS DISEASE, QZ - FIRST BEATER SVC W/O OTR DRIVER BY Additional Codes: Summary - Extremes of Age - Over 70 or under 1: FIRST BEATER ([id number])
--- NOTE | 2024-10-31 11:00 | W.ANESCHARGE ---
Anesthesia Charges Start Date/Time Anesthesia Start Date: 10/31/24 Anesthesia Start Time: 09:13 Stop Date/Time Anesthesia Stop Date: 10/31/24 Anesthesia Stop Time: 11:00 Summary Extremes of Age - Over 70 or under 1: STICKER ON Coding CPT Codes CPT Codes: ANESTH REPAIR OF HERNIA - 57229 ([id number]) P3 - PATIENT W/SEVERE SYS DISEASE, QZ - STICKER ON SVC W/O STEAMER BLOCKER BY Additional Codes: Summary - Extremes of Age - Over 70 or under 1: STICKER ON ([id number])
--- NOTE | 2024-10-31 11:07 | SUR.PHASEI ---
Patient came to PACU awake, oriented to location. No complaints of pain or nausea when asked.
--- NOTE | 2024-10-31 11:16 | PC.NURSE ---
I entered patient's chart to prepare for post-op care on Med/Surg. However, plan of care changed and patient will be returning to Same Day Surgery.
--- NOTE | 2024-10-31 11:26 | SUR.PHASEI ---
Patient meets anesthesia discharge criteria from PACU. No oxygen needed during PACU. Vital signs stable.
--- NOTE | 2024-10-31 11:52 | SUR.PHASEII ---
Patient returned from Phase II. Ice pack on incision. Tolerated water, coffee. and daughter brought to patient's room.
--- NOTE | 2024-10-31 12:29 | SUR.PHASEII ---
Anesthesia said no need to do blood sugar in Phase II. Patient tolerated toast.
== END 2024-10-31 13:23 | disposition home or self-care (01) ==
LOC: OR 06:59 → MEDSURG 07:04
PROVIDERS: PCP Family Medicine; Visit Provider Surgery
PROC: (CPT 49507; principal; 2024-10-31 09:00)
DX: K40.30 Unilateral inguinal hernia, with obstruction, without gangrene, not specified as recurrent (principal); E13.9 Other specified diabetes mellitus without complications; F03.A0 Unspecified dementia, mild, without behavioral disturbance, psychotic disturbance, mood disturbance, and anxiety; I10 Essential (primary) hypertension
CPT/HCPCS: 49507; 00830; 82962; 99100; C1781; J0665; J0666; J0690; J2704; J7120

== ENCOUNTER 2024-12-30 13:16 | Outpatient (CLI) | payer MEDICARE, SELFPAY | END 2024-12-30 13:17 | disposition home or self-care (01) | PROVIDERS: PCP Family Medicine; Visit Provider Family Medicine | DX: I10 Essential (primary) hypertension (principal); E05.90 Thyrotoxicosis, unspecified without thyrotoxic crisis or storm; E78.2 Mixed hyperlipidemia; E13.9 Other specified diabetes mellitus without complications | CPT/HCPCS: 80048; 80061; 84439; 84443 ==

== ENCOUNTER 2025-07-05 15:04 | Outpatient (CLI) | payer MEDICARE, SELFPAY | END 2025-07-05 15:05 | disposition home or self-care (01) | PROVIDERS: PCP Family Medicine; Visit Provider Family Medicine | DX: E05.90 Thyrotoxicosis, unspecified without thyrotoxic crisis or storm (principal) | CPT/HCPCS: 84439; 84443 ==